=== PATIENT | female | born 1940 | race African-American/Black ===

== ENCOUNTER 2019-10-30 12:46 | Emergency (ER) | payer MEDICARE, OTHER ==
[2019-10-30 13:22] LABS: #Basophils 0.1 thou/uL (0.0-0.2); #Eosinphils 0.1 thou/uL (0.0-0.7); #Lymphocytes 1.2 thou/uL (1.20-3.40); #Monocytes 1.2 thou/uL (0.11-0.59); #Neutrophils 10.3 thou/uL (1.40-6.50); %Basophils 0.6 % (0.0-1.0); %Eosinophils 0.8 % (0.0-10.0); %Monocytes 9.5 % (0.0-10.0); %Neutrophils 80.1 % (42.0-75.0); Hemoglobin 9.8 g/dL (12.0-16.0); Mean Corpuscular HGB CONC 32.3 g/dL (32.0-36.0); Mean Corpuscular Hemoglobin 30.9 pg (27.0-31.0); Mean Corpuscular Volume 95.6 fL (78.0-98.0); Mean Platelet Volume 7.1 fL (7.4-10.4); Platelet Count 366 thou/uL (130-400); RBC Distribution Width 11.7 % (11.5-14.5); Red Blood Cell (RBC) Count 3.17 mill/uL (4.20-5.40); White Blood Cell (WBC) Count 12.9 thou/uL (4.8-10.8)
[2019-10-30 13:48] LABS: ALT (SGPT) 25 U/L (8-55); AST (SGOT) 17 U/L (5-34); Albumin 3.3 g/dL (3.4-4.8); Alkaline Phosphatase 72 U/L (40-110); Anion Gap 12 mmol/L (10-20); BUN (Urea Nitrogen) 14 mg/dL (9.8-20.1); Bilirubin, Total 0.6 mg/dL (0.2-1.2); Calc. Creatinine Clearance 0 mL/min (70-130); Calcium 9.1 mg/dL (7.8-10.44); Carbon Dioxide 32 mmol/L (23-31); Chloride 95 mmol/L (98-107); Estimated GFR-MDRD 80; Globulin 3.2 g/dL (2.4-3.5); Glucose 112 mg/dL (83-110); Potassium 3.1 mmol/L (3.5-5.1); Protein, Total 6.5 g/dL (6.0-8.3); Sodium 136 mmol/L (136-145)
--- NOTE | 2019-10-30 13:54 | CT ---
EXAM: CT brain without contrast HISTORY: Altered mental status and weakness COMPARISON: 03/16/2015 TECHNIQUE: Multiple contiguous axial images were obtained and a CT of the brain without contrast. FINDINGS: There are scattered hypodensities in the subcortical and periventricular white matter consi stent with small vessel ischemic disease. There is no evidence of hydrocephalus, intracranial hemorrhage, or extra-axial fluid collection. The calvarium and overlying soft tissues are unremarkable. The visualized paranasal sinuses and masto id air cells are well aerated. IMPRESSION: No evidence of acute intracranial abnormality
[2019-10-30 15:21] LABS: Bilirubin Negative (Negative); Blood, Urine Trace (Negative); Clarity Clear (Clear); Glucose, Urine (Dipstick) Normal (Negative); Leukocyte Negative Leu/uL (Negative); Nitrite Negative (Negative); Protein, Urine (Dipstick) 30 mg/dL (Neg-Trace); RBC/HPF 0-3 HPF (0-3); Squamous Epithelial 0-3 HPF (0-3); Urobilinogen Normal mg/dL (Less than 2)
[2019-10-30 15:22] LABS: Bacteria/HPF Rare-Few HPF (None Seen)
--- NOTE | 2019-10-30 15:41 | RAD ---
RADIOGRAPH CHEST 1 VIEW: DATE: 10/30/2019 HISTORY: 79-year-old female with weakness and altered mental status. Concern for aspiration. FINDINGS: The thoracic aorta is tortuous and ectatic. There is no evidence of airspace density, pulmonary edema , cardiomegaly, or pneumothorax. The lateral costophrenic angles are slightly effaced. IMPRESSION: 1) questionable tiny bilateral pleural effusions. A lateral view may be useful for confirmation.. 2) No acute pulmonary findings. 3) ectasia of thoracic aorta.
[2019-10-30] MEDS ORDERED: Cephalexin 250 MG CAP ONE (16:40)
--- NOTE | 2019-10-31 11:36 | EKG ---
Test Reason : Blood Pressure : / mmHG Vent. Rate : 065 BPM Atrial Rate : 065 BPM P-R Int : 142 ms QRS Dur : 082 ms QT Int : 460 ms P-R-T Axes : 062 -29 006 degrees QTc Int : 478 ms Normal sinus rhythm Possible Left atrial enlargement Left ventricular hypertrophy Abnormal ECG Confirmed by SUE SLAUGHTER DO ([id number]), editor book GUSTAVO GALINDO ([id number]) on 10/31/2019 11:35:44 AM Referred By: Confirmed By:SUE SLAUGHTER DO
== END 2019-10-30 19:19 | disposition home or self-care (01) ==
LOC: ERS 12:46
DX: N30.90 Cystitis, unspecified without hematuria (principal); R53.81 Other malaise; R63.0 Anorexia; I49.9 Cardiac arrhythmia, unspecified; I10 Essential (primary) hypertension; G47.30 Sleep apnea, unspecified; F41.9 Anxiety disorder, unspecified; Z87.891 Personal history of nicotine dependence; Z86.73 Personal history of transient ischemic attack (TIA), and cerebral infarction without residual deficits
CPT/HCPCS: 36415; 51701; 70450; 71045; 80053; 81003; 81015; 84484; 85025; 87086; 93005

== ENCOUNTER 2019-11-24 14:38 | Inpatient (IN) | payer MEDICARE, OTHER ==
--- NOTE | 2019-11-24 14:55 | CT ---
CT BRAIN WITHOUT CONTRAST: HISTORY:Stroke alert. Left-sided weakness. Unable to talk COMPARISON:10/30/2019 FINDINGS: There are foci of decreased attenuation in the periventricular white matter, consistent with chronic small vessel ischemic disease. Old infarctions in the cerebellar hemispheres are again seen. No evidence of acute infarct, hemorrhage, midline shift or abnormal extra-axial fluid collections is seen. The ventricular size is appropriate and the basilar cisterns are patent. The bony calvarium is intact. The visualized paranasal sinuses and mastoid air cells are well aerated. IMPRESSION: No CT evidence of acute intracranial process. Discussed over the telephone with ER physician Dr. Arsen Zeng at 2:50 PM
[2019-11-24 15:11] LABS: #Lymphocytes 0.7 thou/uL (1.20-3.40); #Monocytes 0.6 thou/uL (0.11-0.59); #Neutrophils 5.4 thou/uL (1.40-6.50); %Basophils 0.6 % (0.0-1.0); %Eosinophils 0.3 % (0.0-10.0); %Lymphocytes 10.7 % (21.0-51.0); %Monocytes 9.2 % (0.0-10.0); %Neutrophils 79.1 % (42.0-75.0); Hemoglobin 8.4 g/dL (12.0-16.0); Mean Corpuscular HGB CONC 32.5 g/dL (32.0-36.0); Mean Corpuscular Hemoglobin 30.6 pg (27.0-31.0); Mean Corpuscular Volume 94.2 fL (78.0-98.0); Mean Platelet Volume 7.4 fL (7.4-10.4); Platelet Count 281 thou/uL (130-400); RBC Distribution Width 12.8 % (11.5-14.5); Red Blood Cell (RBC) Count 2.73 mill/uL (4.20-5.40); White Blood Cell (WBC) Count 6.8 thou/uL (4.8-10.8)
--- NOTE | 2019-11-24 15:16 | CT ---
CTA Angio Head W WO Con History: Reason For Study Comparison: CT brain same day without contrast Findings: CT angiogram of the head and neck was performed after the intravenous administration of con trast. 3-D rendering provided. Multifocal nodules in the right upper and left upper lobes. Largest nodule left upper lobe measures 8 mm. Largest nodule in the right upper lobe measures 1 cm. Multiple smaller nodules present. Significant reflux contrast within the paravertebral plexus. Right vertebral artery is patent. Right common carotid artery is patent. Right internal carotid arter y is patent with medialization. Origin left common vertebral artery is not well seen due to extensive streak from contrast within the venous plexus. The mid cervical and superior cervical vertebral artery is patent. The left vertebral artery appears to terminate in the PICA, a normal variant. Visualized portion of the left common carotid artery is patent. The internal carotid artery is patent . No hemodynamically significant stenosis per mass effect criteria. [place] is patent without stenosis, thrombosis nor aneurysm formation. Impression: 1. No hemodynamically significant stenosis of the internal carotid arteries per NASCET criteria. 2. Dominant right vertebral artery with the left vertebral artery terminating in the PICA, a normal v ariant. 3. Patent [place] without stenosis, thrombosis or aneurysm formation. 4. Multifocal pulmonary nodules concerning for either metastatic disease or multifocal lung cancer. S cattered pneumonia is felt somewhat less likely. Dedicated CT of the chest recommended nonemergently. Code: CR. Dr. Zeng notified of findings via telephone at 3:10 PM
[2019-11-24 15:17] LABS: Prothrombin Time 14.5 sec (12.0-14.7)
[2019-11-24 15:18] LABS: INR-International Normal Ratio 1.1
[2019-11-24 15:32] LABS: ALT (SGPT) 10 U/L (8-55); AST (SGOT) 11 U/L (5-34); Albumin 3.1 g/dL (3.4-4.8); Alkaline Phosphatase 65 U/L (40-110); Anion Gap 11 mmol/L (10-20); BUN (Urea Nitrogen) 8 mg/dL (9.8-20.1); Bilirubin, Total 0.4 mg/dL (0.2-1.2); CK (CPK) 149 U/L (29-168); Calc. Creatinine Clearance 0 mL/min (70-130); Calcium 8.6 mg/dL (7.8-10.44); Carbon Dioxide 28 mmol/L (23-31); Chloride 101 mmol/L (98-107); Estimated GFR-MDRD Greater than 90; Globulin 2.9 g/dL (2.4-3.5); Glucose 109 mg/dL (83-110); Potassium 3.3 mmol/L (3.5-5.1); Sodium 137 mmol/L (136-145)
[2019-11-24 15:53] LABS: CKMB 2.5 ng/mL (0-6.6)
[2019-11-24] MEDS ORDERED: Iopamidol 370 76% 100 ML VIAL ONE (16:31)
--- NOTE | 2019-11-24 16:36 | PDOC.FPRHP ---
- History of Present Illness Chief Complaint: R sided weakness and trouble speaking after fall History of Present Illness: 79 yo F with a PMH of HTN, JAZMIN, and mixed incontinence presents via EMS following sudden onset right sided facial droop and right sided weakness which resulted in a fall. Family witnessed fall at 1400 on day of admission. Patient did not hit her head. Patient was also experiencing expressive aphasia, so history taking was limited. ED Course: Patient evaluated and had NIH of 13, given tPA at 1510. Nurse reports improvement of patient's movement and speech since then. During exam it was noted that patient's tongue was swollen. After exam, nurse expressed concern that swelling was increasing which was agreed upon my ED and admitting attending physician. Patient was intubed in the ED, given Etomidate 20mg and Succinylcholine 100mg. - Allergies/Adverse Reactions Allergies Allergy/AdvReac Type Severity Reaction Status Date / Time No Known Drug Allergies Allergy Verified 07/31/19 18:48 - Home Medications Medication Instructions Recorded Confirmed Type Acetaminophen With Codeine 1 tablet PO Q6HR PRN 09/14/14 11/24/19 History [Tylenol with Codeine #3] Iron 65 mg PO DAILY 09/14/14 11/24/19 History Hydrochlorothiazide 12.5 mg PO DAILY 11/24/19 11/24/19 History Oxybutynin Chloride [Oxybutynin 15 mg PO DAILY 11/24/19 11/24/19 History Chloride ER] Gabapentin 100 mg PO TID 11/25/19 11/25/19 History Mirtazapine 30 mg PO DAILY 11/25/19 11/25/19 History Tiotropium [place] [Spiriva] 18 mcg IH DAILY 11/25/19 11/25/19 History Ziprasidone [Geodon] 60 mg PO BID-WM 11/25/19 11/25/19 History - History PMHx: HTN, JAZMIN, neuropathy, overactive bladder, mixed incontinence, schizoaffective disorder PSHx: endometrial biopsy, hammertoe surgery, L total hip replacement, R intraocular lens replacement, laproscope cholecystectomy FHx: adopted. Son - unknown cancer Social: Lives in [facility], former tobacco user greater than 10 years ago - Review of Systems ROS unobtainable: other (due to patient's expressive aphasia. Patient denied any pain.) - Vital signs BP: 151/100 HR: 79 RR: 18 Tmax: 98.6 Pox: 100% on RA Wt: 65kg - Physical Exam Constitutional: NAD -Constitutional: oriented to person and place, unable to verbalize needs due to aphasia HEENT: normocephalic and atraumatic, PERRLA, EOMI, grossly normal hearing -HEENT: macroglossia Heart: RRR Lungs: no respiratory distress, good air movement Abdomen: soft, non-tender Neurological: CN II-XII intact, normal sensation -Neurological: 5/5 strength in left upper and lower extremities, 5/5 strength in right upper and lower extremities. Mild facial drooping on R side. FMR H&P: Results - Labs Result Diagrams: 11/24/19 15:04 11/24/19 15:04 Lab results: WBC 6.8 thou/uL (4.8-10.8) 11/24/19 15:04 Hgb 8.4 g/dL (12.0-16.0) L 11/24/19 15:04 Hct 25.7 % (36.0-47.0) L 11/24/19 15:04 MCV 94.2 fL (78.0-98.0) 11/24/19 15:04 Plt Count 281 thou/uL (130-400) 11/24/19 15:04 Neutrophils % 79.1 % (42.0-75.0) H 11/24/19 15:04 Sodium 137 mmol/L (136-145) 11/24/19 15:04 Potassium 3.3 mmol/L (3.5-5.1) L 11/24/19 15:04 Chloride 101 mmol/L (98-107) 11/24/19 15:04 Carbon Dioxide 28 mmol/L (23-31) 11/24/19 15:04 BUN 8 mg/dL (9.8-20.1) L 11/24/19 15:04 Creatinine 0.71 mg/dL (0.6-1.1) 11/24/19 15:04 Glucose 109 mg/dL (83-110) 11/24/19 15:04 Calcium 8.6 mg/dL (7.8-10.44) 11/24/19 15:04 Total Bilirubin 0.4 mg/dL (0.2-1.2) 11/24/19 15:04 AST 11 U/L (5-34) 11/24/19 15:04 ALT 10 U/L (8-55) 11/24/19 15:04 Alkaline Phosphatase 65 U/L (40-110) 11/24/19 15:04 Creatine Kinase 149 U/L (29-168) 11/24/19 15:04 CK-MB (CK-2) 2.5 ng/mL (0-6.6) 11/24/19 15:04 Serum Total Protein 6.0 g/dL (6.0-8.3) 11/24/19 15:04 Albumin 3.1 g/dL (3.4-4.8) L 11/24/19 15:04 Laboratory Tests 11/24/19 11/24/19 15:04 15:04 PT 14.5 INR 1.1 APTT 24.0 Troponin I 0.107 H - Radiology Interpretation CT scan - head Status: report reviewed by me Additional comment: negative Other Status: report reviewed by me Additional comment: CTA - negative for clot, multifocal lung nodules concerning for metastatic disease FMR H&P: A/P - Problem List (1) Acute ischemic cerebrovascular accident (CVA) involving left middle cerebral artery territory Current Visit: Yes Status: Acute Code(s): I63.512 - CEREB INFRC D/T UNSP OCCLS OR STENOS OF LEFT MID CEREB ART (2) Angio-edema Current Visit: Yes Status: Acute Code(s): T78.3XXA - ANGIONEUROTIC EDEMA, INITIAL ENCOUNTER (3) HTN (hypertension) Current Visit: Yes Status: Acute Code(s): I10 - ESSENTIAL (PRIMARY) HYPERTENSION (4) Hypokalemia Current Visit: Yes Status: Acute Code(s): E87.6 - HYPOKALEMIA (5) Normocytic anemia Current Visit: Yes Status: Acute Code(s): D64.9 - ANEMIA, UNSPECIFIED (6) Elevated troponin Current Visit: Yes Status: Acute Code(s): R79.89 - OTHER SPECIFIED ABNORMAL FINDINGS OF BLOOD CHEMISTRY (7) Lung nodules Current Visit: Yes Status: Acute (8) Schizoaffective disorder Current Visit: Yes Status: Acute Code(s): F25.9 - SCHIZOAFFECTIVE DISORDER, UNSPECIFIED - Plan 79 yo F with a PMH of HTN, JAZMIN, and mixed incontinence admitted for ischemic L sided CVA s/p tPA. Ischemic L sided CVA s/p tPA -tPA given 1510 on 11/23 -Patient in ICU -PRN labetolol, hydralazine, nocardia for SBP >180, DBP >105 -repeat CT in AM -Neuro and Stroke team consulted Angioedema -tPA reaction -was given benadryl and 125mg solumedrol -Continue pepcid 20mg IV BID -Continue solumedrol 40mg IV q6h Hypokalemia -CCU electrolyte protoccol Increased troponin -likely secondary to CVA -EKG showed no ST changes Normocytic anemia -CCU electrolyte protocol Lung nodules -Consider workup when patient stabilizes HTN -BP control via stroke protocol -hold home medications at this time Schizoaffective disorder -hold home medications at this time Overactive bladder -placed garcía catheter Diet: NPO IVF: LR 10mL/hr PPx: s/p tPA, pepcid Code: Full - needs confirmation with family Attending: James Dispo: Suspect >48 LOS, discharge pending extubation and improvement PCP: Devi CORDERO H&P: Upper Level - Plan Date/Time: 11/24/19 1636 IEdgar DO, have evaluated this patient and agree with findings/plan as outlined by architect intern resident. Pertinent changes/additions are listed here. This is a 79 yo female with a pmh of HTN, JAZMIN, MACK, over active bladder, who present to the ED with a cc of fall and speech difficulties. She was last seen normal at 1400 this afternoon. At that time she had a ground level fall with no head trauma, trouble talking, walking, and left sided weakness. She was brought to the ER where she was evaluated and found to have an NIH of 13 and so emergency consent was implied and she was given tPA at 1510. Since this time, the nurse caring for her reports that her movement has improved. The patient currently has some swelling in her tongue concerning for obstruction. The patient was intubated in the ER. Etomidate 20mg Succinylcholine 100mg Objective: Vitals: BP 151/100, HR 79, RR 18, Temp 98.6, SpO2 100 on RA General: NAD, unable to verbalize HEENT: macroglossia, mmm, AT/NC Cardio: RRR, no murmur Lungs: Coarse breath sounds, good air movement Neuro: 4/5 strength in left upper and lower extremities, 5/5 in right upper and lower extremities, normal heel to back bilaterally, CN II-XII grossly intact with the exception of right CN VII showing some drooping of the right face MSK: no obvious joint injury Extremities: Trace edema in bilaterally LE A/P: Ischemic left sided CVA, S/P tPA at 1510 (11/23) -Admit to ICU -Intubated in ER 2/2 angioedema -Sedation protocol -Monitor BP with goal between SBP <180 and DBP <105 -PRN labetalol and hydralazine -Will repeat CT brain tomorrow -Glucose is 109 -Neurology and stroke team consulted -Will risk stratify after tPA window Angioedema -S/P Benadryl, Pepcid, and solumedrol 125mg -Will continue steroids Normocytic anemia -Hgb 8.4, will monitor with CBC after 24 tPA Hypokalemia -CCU electrolyte protocol Elevated troponin, likely 2/2 CVA -EKG shows no signs of ST elevation or depression -Would obtain an EKG if pt decompensates overnight Lung nodules seen on CT -Consider further work up after tPA window HTN -Hold HCTZ at this time Over reactive bladder -García catheter in place Code: Full, based on emergency state, have not confirmed with next of kin PCP: Veronica Family: None at bedside Fluids: LR Diet: NPO Drips: tPA Disposition: DC in 5-6 days PCP: ROBBI Wagner Addendum - Attending - Attending Attestation Date/Time: 11/25/19 0811 I personally evaluated the patient and discussed the management with Dr. Matt/ Deirdre. I agree with the History, Examination, Assessment and Plan documented above with any addition or exceptions noted below. see my dictated H&P for details.
[2019-11-24] MEDS ORDERED: Ondansetron PF 4 MG/2 ML Vial IVP PRN (16:37)
[2019-11-24] MEDS ORDERED: Ondansetron ODT 4 MG TAB PO PRN (16:37)
[2019-11-24] MEDS ORDERED: niCARdipine 25 MG in Sodium Chloride 0.9% 250 ML 250 ML IVPB PRN (16:37)
[2019-11-24] MEDS ORDERED: Labetalol HCl 100 MG/20 ML VIAL SLOW IVP PRN (16:37)
[2019-11-24] MEDS ORDERED: methylPREDNISolone Sod Succ/PF 125 MG/2 ML VIAL ONE (16:56)
[2019-11-24] MEDS ORDERED: diphenhydrAMINE 50 MG/ML VIAL ONE (16:56)
[2019-11-24] MEDS ORDERED: Succinylcholine Chloride 20 MG/ML 10 ml SYRINGE FS ONE (17:01)
[2019-11-24] MEDS ORDERED: Propofol 1,000 MG/100 ML VIAL IV ONE (17:14)
[2019-11-24] MEDS ORDERED: Midazolam HCl 5 mg/ml Vial ONE ×2 (17:19→17:20)
--- NOTE | 2019-11-24 17:29 | RAD ---
XR Chest 1 View Portable HISTORY: Fall. COMPARISON: 10/30/2019 exam. FINDINGS: Endotracheal and NG tubes are in satisfactory position. Heart size within normal limits. Th e aorta is tortuous. The lungs are clear of infiltrates. IMPRESSION: No acute findings. Endotracheal tube in satisfactory position.
[2019-11-24] MEDS ORDERED: Ventilator Sedation Protocol 1 EACH FS ONE (17:34)
[2019-11-24] MEDS ORDERED: Electrolyte Replacement Protoc 1 EACH EACH FS PRN (17:34)
[2019-11-24] MEDS ORDERED: Lorazepam 2 MG/ML VIAL SLOW IVP PRN (17:59)
[2019-11-24] MEDS ORDERED: Morphine 2 MG/ML VIAL SLOW IVP PRN (17:59)
[2019-11-24] MEDS ORDERED: Fentanyl BOLUS 250 ML IVPB PRN (17:59)
[2019-11-24] MEDS ORDERED: Propofol BOLUS 1,000 MG/100 ML VIAL IV PRN (17:59)
[2019-11-24] MEDS ORDERED: fentaNYL Citrate/PF 2,000 MCG in Sodium Chloride 0.9% 60 ML IV SCH (17:59)
[2019-11-24] MEDS ORDERED: DISCONTINUE PREVIOUS NARCOTIC PAIN MEDICATIONS AND BENZODIAZEPINES FS SCH (17:59)
[2019-11-24] MEDS ORDERED: niCARdipine 20MG In NaCl 20 MG/200 ML BAG ONE (18:18)
[2019-11-24] MEDS: Lactated Ringer's 1,000 ML IV SCH (19:00)
[2019-11-24] MEDS: Communication Order-Pharmacy FS SCH (19:31)
--- NOTE | 2019-11-24 20:29 | HP ---
TIME OF SERVICE: 1700 hours. CHIEF COMPLAINT: Altered mental status. HISTORY OF PRESENT ILLNESS: I reviewed all documentations and discussed the care and management of this patient with Dr. Matt and Dr. Gilmore. I agree with their documentation unless otherwise stated in the following attestation. In summary, Ms. Calix is a pleasant 79-year-old woman who currently resides at a long-term nursing facility. She presented with a chief complaint of a fall that occurred at approximately 2:00 p.m. today. This fall was witnessed at the [facility]. The patient did not hit her head or lose consciousness. She was also noted to be aphasic at this time and unable to move the left side of her body. She was transported to the ER via EMS. At this time, her initial imaging was negative for intracranial hemorrhage and risks, benefits of tPA were discussed with the family by the ER physician. They elected to proceed with tPA administration. This improved her NIH score. She was able to say a few simple words and had improving articulation of her words. She also had improved movement of her left upper and lower extremity. However, while the tPA was still running , she began to develop angioedema. Due to concern for impending airway collapse due to the angioedema caused her from the tPA, decision was made to emergently intubate the patient. I discussed this with Dr. Cruz. The patient was intubated by Dr. Rivera in the ER without difficulty. The patient did acknowledge desire to undergo endotracheal intubation prior to receiving sedatives. The family medicine team attempted to contact her son, but have been unsuccessful at this time. Please see the resident note for past medical, surgical, family, and social history. FOCUSED PHYSICAL EXAMINATION: VITAL SIGNS: Blood pressure 151/100, pulse 79, respiratory rate 18, temperature 98.6, pulse ox 100% on room air. Weight 65 kg. GENERAL: Prior to her endotracheal intubation, she was alert, oriented, but had difficulty articulating words due to her progressive worsening of her tongue swelling. ENT: Angioedema. CARDIOVASCULAR: Normal rate, regular rhythm. No murmurs. PULMONARY: Clear to auscultation bilaterally. Post intubation, she had breath sounds in both lungs. NEUROLOGIC: She was able to move all four extremities equally. I was unable to perform a full neurological exam due to concern for her impending respiratory collapse due to angioedema. PERTINENT LABORATORY FINDINGS: Troponin 0.107. Potassium 3.3, albumin 3.1. Hemoglobin 8.4, hematocrit 25.7. Coags within normal limits. Platelets 281. IMAGING DATA: CT of the brain with and without contrast, no acute intracranial processes. Angiography showed no focal thrombus or hemodynamically significant stenosis of the internal carotid arteries. EKG, normal sinus rhythm. No overt ST changes or depression. Borderline left ventricular hypertrophy. ASSESSMENT: Ms. Calix is a pleasant 79-year-old woman, who presented with fall, left-sided weakness, and aphasia. She is now status post tPA for suspected cerebrovascular accident, but developed angioedema due to the tPA. She was subsequently intubated due to concern for impending airway collapse. PLAN: 1. CVA. Again, the patient is status post tPA and had improving neurological function prior to her endotracheal intubation. We will have p.r.n. blood pressure medications available for a goal of systolic less than 180 and diastolic less than 105. Stroke team consulted for evaluation. She does not appear to be on aspirin or statin at this time. We will add aspirin and consider adding statin tomorrow. No needle sticks for the next 24 hours. Strict bedrest. 2. Angioedema. She now has an oral endotracheal tube in place. Dr. Cruz has been notified. Continue ventilatory support and sedation. She received Solu-Medrol 125 mg and Benadryl 50 mg prior to her endotracheal intubation. We will continue her on Solu-Medrol. Additional recommendations from Pulmonary/Critical Care are pending. 3. See [facility] internship note for chronic medical problems. 4. Disposition: Inpatient ICU greater than 2 midnights. Approximately 35 minutes of critical care time were spent by me in the care of this patient. Job ID: [id number] [facility]
[2019-11-24] MEDS: Famotidine/PF 20 mg/2ml Vial SLOW IVP SCH (20:50)
[2019-11-25] MEDS: methylPREDNISolone Sod Succ 40 MG VIAL IVP SCH ×4 (00:05→18:18)
[2019-11-25] MEDS: Propofol 1,000 MG/100 ML VIAL IV PRN ×3 (01:16→16:17)
[2019-11-25] MEDS: Lactated Ringer's 1,000 ML IV SCH ×2 (05:10→16:17)
--- NOTE | 2019-11-25 05:51 | PDOC.FM ---
- Subjective Subjective: Nursing reports pt did well over night. She did require a Cardene drip but this was discontinued at 2300. She has continued moving all extremities. Pt does not have a garcía but has been using the purewick successfully. - Objective MAR Reviewed: Yes Vital Signs & Weight: Vital Signs (12 hours) Temp Pulse Resp Pulse Ox 11/25/19 04:22 80 11/25/19 04:00 98.6 F 14 11/25/19 02:00 14 11/25/19 00:43 82 11/25/19 00:00 98.3 F 14 11/24/19 20:48 88 11/24/19 20:00 99.0 F 14 100 Weight Weight 67.217 kg Most Recent Monitor Data Heart Rate from ECG 66 NIBP 120/88 NIBP BP-Mean 98 Respiration from ECG 14 SpO2 100 I&O: 11/23/19 11/24/19 11/25/19 06:59 06:59 06:59 Intake Total 201 Output Total 1000 Balance -799 Result Diagrams: 11/24/19 15:04 11/24/19 15:04 Phys Exam - Physical Examination GCS [id number] HEENT: PERRLA, moist MMs good air movment, coarse lung sounds Cardiovascular: RRR, no significant murmur Gastrointestinal: soft, no distention, positive bowel sounds Musculoskeletal: no edema, pulses present Neurological: moves all 4 limbs Will squeeze hand, but will not follow other commands Skin: normal turgor, cap refill <2 seconds Dx/Plan - Plan Plan: Code: Full Prophylaxis: pepcid Family: none at bedside Fluids; LR 100 ml/hr Drips: propofol 15 Diet: NPO Vent settings: SIMV 14, TV 450, PS 10, PEEP 5, FIO2 40% Plan: This is a 79 yo female who presented with an ischemic stroke, received tPA and developed an intracranial bleed overnight. Neurosurgery has been consulted. We will continue monitoring and providing supportive care. Ischemic left sided CVA, S/P tPA at 1510 (11/23) -Intubated and sedated -Sedation protocol -Monitor BP with goal between SBP <180 and DBP <105 -PRN labetalol and hydralazine -Neurology and stroke team consulted -Will risk stratify after tPA window -Pt developed an intraparencamal right basal ganglia bleed as well as a left temporal lobe bleed overnight, consulting neurosugery Angioedema -S/P Benadryl, Pepcid, and solumedrol 125mg -Will continue steroids Normocytic anemia -Hgb 8.4, will monitor with CBC after 24 tPA Hypokalemia -CCU electrolyte protocol Elevated troponin, likely 2/2 CVA -EKG shows no signs of ST elevation or depression -Would obtain an EKG if pt decompensates overnight Lung nodules seen on CT -Consider further work up after tPA window HTN -Hold HCTZ at this time Over reactive bladder -García catheter in place Addendum - Attending - Attending Attestation Date/Time: 11/25/19 7898 I personally evaluated the patient and discussed the management with Dr. Gilmore. I agree with the History, Examination, Assessment and Plan documented above with any addition or exceptions noted below. MV support for angioedema. She had 2 areas of intracranial hemorrhage last night. repeat CT this afternoon stable. Awaiting further specialist recs. Still attempting to contact family.
[2019-11-25] MEDS ORDERED: Potassium Chloride 40 MEQ in Sodium Chloride 0.9% 250 ML 250 ML IV SCH (06:30)
--- NOTE | 2019-11-25 07:26 | PRG ---
DATE OF SERVICE: 11/25/2019 I personally interviewed and examined the patient, reviewed records and imaging , and agreed with the notes of Yuri Kirby PA-C, that are forthcoming dated 2019. Briefly, Haroldo Calix is a 79-year-old woman, who had a fall at home, was brought to the emergency department. Her evaluation there noted left hemiparesis and some speech difficulty. The concern was for an ischemic stroke and tPA was administered. During the tPA administration, she had some allergic reaction with angioedema and was intubated to protect her airway. Overnight, she has been doing relatively well on the ventilator. We went for a CT scan of the brain this morning showing a small hemorrhage in the anterior portion of the external capsule just lateral to the anterior lenticular nuclei in the right hemisphere. There may be a tiny bit of hemorrhage at the bottom of the left temporal lobe or this could be volume averaging from bony prominence there. Neither of these areas cause much mass effect. Neurosurgery was consulted for the new CT finding. When I see Ms. Calix in the ICU, she is wide awake. Her vitals are stable. The endotracheal tube was in, so she cannot talk to me. She easily opens her eyes. Both sides of her face are moving. The left arm and the right arm are moving. The left leg and the right leg are moving. She follows commands well with both sides of her body. I reviewed the CT scan of the brain and the findings are as mentioned above. There is no mass effect from either area of hyperdensity. I recommended that Haroldo Calix have a repeat CT scan sometime this afternoon. I do not expect any increase in the size of the hyperdensities. As long as they are stable, she will not need neurosurgical intervention. The effect of the tPA is long since worn off and I suspect the bleeding stabilized sometime overnight. Thank you for the consult. Please call with questions. (15 min, >50% counseling, educating, coordinating care) Job ID: [id number] [facility]
[2019-11-25] MEDS: Famotidine/PF 20 mg/2ml Vial SLOW IVP SCH ×2 (07:59→20:12)
--- NOTE | 2019-11-25 08:29 | CT ---
PRELIMINARY REPORT/[facility]/EMERGENCY AFTER HOURS PROCEDURE: This report was discussed with Madina Marcus RN by Emely Ware on Nov 25, 2019 04:37:00 CDT. Addendum electronically signed by Emely Ware on November 25, 2019 4:37:59 AM CDT EXAM: CT Head Without Intravenous Contrast. CLINICAL HISTORY: FOLLOW UP POST TPA. TECHNIQUE: Axial computed tomography images of the head/brain without intravenous contrast. COMPARISON: CT\SR - CT BRAIN WO CON - 11/24/2019 02:47 PM CDT FINDINGS: BRAIN: 1.1 cm hemorrhage in the right basal ganglia, new compared to prior. 0.9 cm parenchymal hemorrhage in the left temporal lobe. Encephalomalacia in the bilateral cerebellum which likely represents prior chronic infarcts. Hypodensity of the white matter is nonspecific but likely represents chronic microvascular ischemic d isease. VENTRICLES: No hydrocephalus. ORBITS: The orbits are unremarkable. SINUSES AND MASTOIDS: The paranasal sinuses and mastoid air cells are clear. SOFT TISSUES: No significant facial or scalp soft tissue swelling evident. No radiopaque foreign body is seen. BONES: No acute skull fracture. IMPRESSION: New intraparenchymal hemorrhage in the right basal ganglia measuring up to 1.1 cm and in the left tem poral lobe measuring up to 0.9 cm. ELECTRONICALLY SIGNED BY: Komal Leong MD Nov 25, 2019 4:31:03 AM CDT This report is intended for review by the ordering physician only, in accordance of law. If you recei ve this report in error, please call [facility] at [phone]. FINAL REPORT EMERGENCY AFTER HOURS CT BRAIN WITHOUT CONTRAST: FINDINGS/IMPRESSION: I agree with the findings and impression given in the preliminary report per [facility] physici an. There is a new parenchymal contusion in the right basal ganglia and a new area of contusion in the le ft temporal lobe. POS: EAA
[2019-11-25] MEDS ORDERED: Prevnar 13-Val Conj/PF 0.5 ML SYRINGE IM ONE (09:00)
--- NOTE | 2019-11-25 10:04 | CON ---
DATE OF CONSULTATION: 11/25/2019 HISTORY OF PRESENT ILLNESS: Ms. Calix is a 79-year-old female, who presented to the emergency department with symptoms of a stroke. She had tPA. She developed tongue swelling and respiratory distress, so she was intubated with 7.0 tube. I was consulted because of her presentation in the ICU. CT scan this morning shows a small hemorrhage in the external capsule in the right hemisphere. PAST MEDICAL HISTORY: 1. Sleep apnea. 2. Hypertension. 3. History of surgery on her hammertoes. 4. History of an endometrial biopsy. 5. History of a hip replacement on the left. 6. History of cataract surgery. 7. History of cholecystectomy. FAMILY HISTORY: Noncontributory. She is adopted. She is a nonsmoker, had not smoked over 10 years. Nondrinker. REVIEW OF SYSTEMS: Otherwise negative. PHYSICAL EXAMINATION: GENERAL: She is in no distress. VITAL SIGNS: Blood pressure is 135/91, heart rate is 60, and respiratory rate is 14. HEAD AND NECK: Unremarkable. Pupils react. She has 7.0 endotracheal tube with the cuff deflated. There is no air leak. LUNGS: Clear. HEART: Regular rhythm. S1 and S2 are normal. ABDOMEN: Soft and nontender. EXTREMITIES: Without clubbing, cyanosis, or edema. IMPRESSION: Tongue swelling after tPA, now with respiratory failure, mechanical ventilation and no air leak with a 7.0 tube in. She has been started on IV steroids daily basis for an air leak. Her tongue does not appear excessively swollen at this point in time. She has been followed by Neurosurgery as well. Overall, she appears to be stable. CRITICAL CARE TIME: 30 minutes. Job ID: [id number] [facility]
--- NOTE | 2019-11-25 14:15 | CON ---
NEUROLOGY CONSULTATION DATE OF CONSULTATION: 11/25/2019 REASON FOR CONSULTATION: Right-sided weakness and dysarthria, status post fall. HISTORY OF PRESENT ILLNESS: Ms. Calix is a 79-year-old female with medical history significant for hypertension, obstructive sleep apnea, and presented to the emergency room with sudden onset right facial droop and right-sided weakness which resulted after a fall. According to the family she fell around 2 p.m. yesterday. She did not hit her head. However, after the fall the family noticed that she was weak on the right side and she has developed expressive aphasia. She was brought to the emergency room with an NIH Stroke Scale of 13 and she was given tPA at 3:10, which did result in improvement in patient's strength on the right side and speech was also improved. However, it was noted that the patient's tongue was swollen. The patient was intubated and sedated and transferred to ICU for further management. PAST MEDICAL HISTORY: Hypertension, neuropathy, overactive bladder, schizoaffective disorder. PAST SURGICAL HISTORY: Status post endometrial biopsy, hammer toe surgery, left total hip replacement, right intra-ocular lens replacement. FAMILY HISTORY: No significant family history. SOCIAL HISTORY: The patient lives at [facility]. She is a former smoker. Denies illegal drug use. REVIEW OF SYSTEMS: Unobtainable due to mental status. - Vital Signs (12 hours) Temp Pulse Resp Pulse Ox 11/25/19 04:22 80 11/25/19 04:00 98.6 F 14 11/25/19 02:00 14 11/25/19 00:43 82 11/25/19 00:00 98.3 F 14 11/24/19 20:48 88 11/24/19 20:00 99.0 F 14 100 Weight Weight 67.217 kg Most Recent Monitor Data Heart Rate from ECG 66 NIBP 120/88 NIBP BP-Mean 98 Respiration from ECG 14 SpO2 100 I&O: 11/23/19 11/24/19 11/25/19 06:59 06:59 06:59 Intake Total 201 Output Total 1000 Balance -799 PHYSICAL EXAMINATION: CONSTITUTIONAL: Ill-appearing. HEENT: Normocephalic and atraumatic. CHEST: Clear. ABDOMEN: Soft. HEART: Regular rate and rhythm. NEUROLOGICAL: The patient is intubated and sedated. She does not follow commands. She does not maintain eye contact. No gaze preference. No roving eye movement seen. Cranial nerves; pupils are 4 mm, round and reactive to light. Cornea is positive. Gag positive. Mild right facial droop. Motor, muscle tone and bulk are normal. Minimal spontaneous movement of the extremities seen. Repeat CT scan shows a small hemorrhage in the external capsule in the right hemisphere. Gait deferred due to patient's safety reasons. Allergies/Adverse Reactions Allergies Allergy/AdvReac Type Severity Reaction Status Date / Time No Known Drug Allergies Allergy Verified 07/31/19 18:48 - Home Medications Medication Instructions Recorded Confirmed Type Acetaminophen With Codeine 1 tablet PO Q6HR PRN 09/14/14 11/24/19 History [Tylenol with Codeine #3] Iron 65 mg PO DAILY 09/14/14 11/24/19 History Hydrochlorothiazide 12.5 mg PO DAILY 11/24/19 11/24/19 History Oxybutynin Chloride [Oxybutynin 15 mg PO DAILY 11/24/19 11/24/19 History Chloride ER] Gabapentin 100 mg PO TID 11/25/19 11/25/19 History Mirtazapine 30 mg PO DAILY 11/25/19 11/25/19 History Tiotropium Alloway [Spiriva] 18 mcg IH DAILY 11/25/19 11/25/19 History Ziprasidone [Geodon] 60 mg PO BID-WM 11/25/19 11/25/19 History Lab results: WBC 6.8 thou/uL (4.8-10.8) 11/24/19 15:04 Hgb 8.4 g/dL (12.0-16.0) L 11/24/19 15:04 Hct 25.7 % (36.0-47.0) L 11/24/19 15:04 MCV 94.2 fL (78.0-98.0) 11/24/19 15:04 Plt Count 281 thou/uL (130-400) 11/24/19 15:04 Neutrophils % 79.1 % (42.0-75.0) H 11/24/19 15:04 Sodium 137 mmol/L (136-145) 11/24/19 15:04 Potassium 3.3 mmol/L (3.5-5.1) L 11/24/19 15:04 Chloride 101 mmol/L (98-107) 11/24/19 15:04 Carbon Dioxide 28 mmol/L (23-31) 11/24/19 15:04 BUN 8 mg/dL (9.8-20.1) L 11/24/19 15:04 Creatinine 0.71 mg/dL (0.6-1.1) 11/24/19 15:04 Glucose 109 mg/dL (83-110) 11/24/19 15:04 Calcium 8.6 mg/dL (7.8-10.44) 11/24/19 15:04 Total Bilirubin 0.4 mg/dL (0.2-1.2) 11/24/19 15:04 AST 11 U/L (5-34) 11/24/19 15:04 ALT 10 U/L (8-55) 11/24/19 15:04 Alkaline Phosphatase 65 U/L (40-110) 11/24/19 15:04 Creatine Kinase 149 U/L (29-168) 11/24/19 15:04 CK-MB (CK-2) 2.5 ng/mL (0-6.6) 11/24/19 15:04 Serum Total Protein 6.0 g/dL (6.0-8.3) 11/24/19 15:04 Albumin 3.1 g/dL (3.4-4.8) L 11/24/19 15:04 Laboratory Tests 11/24/19 11/24/19 15:04 15:04 PT 14.5 INR 1.1 APTT 24.0 Troponin I 0.107 H DIAGNOSTICS: I reviewed the initial CT on 11/24/2019, which was negative for acute intracranial process. Repeat CT status post tPA showed 1.1 cm hemorrhage in the right basal ganglia which is new and also 0.9 cm parenchymal hemorrhage in the left lobe. There is also encephalomalacia in the bilateral cerebellum which represents chronic infarcts. ASSESSMENT AND PLAN: - Problem List (1) Acute ischemic cerebrovascular accident (CVA) involving left middle cerebral artery territory Current Visit: Yes Status: Acute Code(s): I63.512 - CEREB INFRC D/T UNSP OCCLS OR STENOS OF LEFT MID CEREB ART (2) Angio-edema Current Visit: Yes Status: Acute Code(s): T78.3XXA - ANGIONEUROTIC EDEMA, INITIAL ENCOUNTER (3) HTN (hypertension) Current Visit: Yes Status: Acute Code(s): I10 - ESSENTIAL (PRIMARY) HYPERTENSION (4) Hypokalemia Current Visit: Yes Status: Acute Code(s): E87.6 - HYPOKALEMIA (5) Normocytic anemia Current Visit: Yes Status: Acute Code(s): D64.9 - ANEMIA, UNSPECIFIED (6) Elevated troponin Current Visit: Yes Status: Acute Code(s): R79.89 - OTHER SPECIFIED ABNORMAL FINDINGS OF BLOOD CHEMISTRY (7) Lung nodules Current Visit: Yes Status: Acute (8) Schizoaffective disorder Current Visit: Yes Status: Acute Code(s): F25.9 - SCHIZOAFFECTIVE DISORDER, UNSPECIFIED Ms. Haroldo Calix is a 79-year-old female who is currently intubated and sedated, status post tPA after she developed a tongue swelling. Examination limited secondary to sedation. Repeat head CT showed intraparenchymal hemorrhage. Hold anticoagulants and antiplatelets at this time due to a new bleed. Neuro checks every 2 hours. Consider stat noncontrast head CT if the neurological status declines. Telemetry . Check fasting lipid panel, hemoglobin A1c, TSH, vitamin B12, and folic acid. Consider high-intensity statin for secondary stroke prevention once the patient is extubated and cleared to take p.o. Continue medical management per primary team. Recommend EEG to rule out underlying seizure activity. Recommend MRI of the brain, 2D echo. Once the patient is stable, PT/OT/speech. Monitor blood pressure and blood glucose. We will continue to follow. Thank you for the consult. Job ID: [id number] [facility]TDD
--- NOTE | 2019-11-25 14:16 | EEG ---
DATE OF SERVICE: 11/25/2019 ATTENDING PHYSICIAN: Rashida Vora MD This EEG was performed using 24-channel [employer] video digital EEG machine with 24-disk electrodes. This was an extended 2-hour 10 minutes of inpatient video EEG recording. Digital analysis of the EEG was done for spike and seizure detection, which revealed no abnormalities. BACKGROUND: There is a nonsustained posterior background rhythm of 8.5 hertz. Minimal reactivity seen with eye opening and closure. HYPERVENTILATION: Not performed. PHOTIC STIMULATION: No significant response seen with photic stimulation. SLEEP: Drowsiness is observed. EEG DIAGNOSES: 1. Intermittent irregular theta activity with superimposed beta. 2. Nonsustained posterior background rhythm. CLINICAL INTERPRETATION: This EEG is consistent with [id number] generalized nonspecific cerebral dysfunction. No ictal or interictal epileptiform abnormalities seen during the recording. Job ID: [id number]
--- NOTE | 2019-11-25 14:16 | CT ---
EXAM: CT brain without contrast HISTORY: Follow-up intracranial hemorrhage COMPARISON: 11/25/2003 6:00 AM TECHNIQUE: Multiple contiguous axial images were obtained and a CT of the brain without contrast. FINDINGS: There are scattered hypodensities in the subcortical and periventricular white matter consi stent with small vessel ischemic disease. There are stable small areas of parenchymal hemorrhage in the right basal ganglia and left temporal lobe. No intraventricular hemorrhage is seen. The calvarium and overlying soft tissues are unremarkable. The visualized paranasal sinuses and masto id air cells are well aerated. IMPRESSION: Stable areas of parenchymal hemorrhage
[2019-11-25] MEDS: Communication Order-Pharmacy FS SCH (16:19)
[2019-11-25] MEDS: Ziprasidone 60 MG CAP PO SCH (17:00)
[2019-11-25] MEDS: Gabapentin 100 MG CAP PO SCH (20:12)
[2019-11-25] MEDS: Atorvastatin Calcium 40 MG TAB PO SCH (20:12)
[2019-11-25] MEDS ORDERED: Aspirin 300 MG Suppository PR SCH (21:00)
--- NOTE | 2019-11-25 21:16 | CON ---
DATE OF CONSULTATION: 11/25/2019 CHIEF COMPLAINT: Right-sided weakness and difficulty forming words. HISTORY OF PRESENT ILLNESS: Ms. Calix is a 79-year-old female, who was brought in by EMS to [facility] Emergency Department following a witnessed fall by the family. Family states the patient did not hit her head. They report there was a sudden onset of right-sided facial droop and right-sided weakness that caused her fall. Due to her left hemiparesis and difficulty forming words, TPA was administered. The patient had an allergic reaction to the tPA and developed angioedema and was quickly intubated to protect her airway. Neurosurgery was consulted due to a brain CT showing a small hemorrhage in the anterior portion of the external capsule just lateral to the anterior lenticular nuclei in the right hemisphere. These two hemorrhages are not causing any mass effect or midline shift. REVIEW OF SYSTEMS: Unobtainable. The patient is intubated. MEDICATIONS: 1. Clonazepam. 2. Iron. 3. Aspirin. 4. Tylenol. 5. Gabapentin. 6. Mirtazapine. 7. Ziprasidone. 8. Tylenol with Codeine No. 3. 9. Hydrochlorothiazide. 10. Oxybutynin. PAST MEDICAL HISTORY: Hypertension, arthritis, stress, anemia, schizoaffective disorder, overactive bladder, neuropathy, and JAZMIN. FAMILY HISTORY: Adopted. Father . Family history unknown. Mother . Family history unknown. SOCIAL HISTORY: Former smoker. No alcohol. No illicit drugs use. PAST SURGICAL HISTORY: In 2015, left hip replacement. PHYSICAL EXAMINATION: VITAL SIGNS: BP 140/90, heart rate 84, and respiratory rate intubated. HEENT: Pupils are equal. Extraocular movements are intact. NECK: Soft and supple. No masses are noted. NEUROLOGIC: Oriented to person and place, unable to verbalize due to intubation. Cranial nerves 2 through 12 intact. Normal sensation. Neurological, she has good strength in her right upper and lower extremities. Left hemiparesis. She has spontaneous eye opening, verbal response not tested. Intubated. Motor response to verbal commands. IMAGING: Brain CT: 1.1 cm right basal ganglia hemorrhage and 0.9 cm left temporal parenchymal hemorrhage. PLAN: Repeat brain CT in the afternoon. If scan shows improvement or no change , we will transfer care to Medicine Service. Supportive care. No intracranial surgery at this time. We will have her follow up in 2 to 3 weeks in our clinic and repeat scan prior to the visit. Thank you for the consult. Please call with questions. 50 minutes reviewing images, examining the patient, and being available for questions. Job ID: [id number] MTDD
[2019-11-26] MEDS: methylPREDNISolone Sod Succ 40 MG VIAL IVP SCH ×4 (00:23→17:13)
[2019-11-26] MEDS: Lactated Ringer's 1,000 ML IV SCH ×2 (03:56→13:54)
--- NOTE | 2019-11-26 05:46 | PDOC.FM ---
- Subjective Subjective: Pt did well overnight. She is following commands even under sedation. She did fail the airleak test yesterday and was not extubated. - Objective MAR Reviewed: Yes Vital Signs & Weight: Vital Signs (12 hours) Temp Pulse Resp Pulse Ox 11/26/19 04:00 98.2 F 14 11/26/19 03:23 42 L 11/26/19 02:00 14 11/26/19 01:33 65 11/26/19 00:00 98.3 F 14 11/25/19 22:00 14 11/25/19 21:37 49 L 11/25/19 20:00 98.1 F 14 100 11/25/19 18:44 60 11/25/19 18:00 14 Weight Admit Weight 67.132 kg Weight 67.217 kg Most Recent Monitor Data Heart Rate from ECG 68 NIBP 136/92 NIBP BP-Mean 106 Respiration from ECG 14 SpO2 100 I&O: 11/24/19 11/25/19 11/26/19 06:59 06:59 06:59 Intake Total 1444 1395.5 Output Total 1000 1000 Balance 444 395.5 Result Diagrams: 11/26/19 08:23 11/26/19 06:46 Phys Exam - Physical Examination Sedated, intubated, GCS [id number] HEENT: PERRLA, moist MMs Neck: no JVD Coars breath sounds Cardiovascular: RRR, no significant murmur Gastrointestinal: soft, no distention, positive bowel sounds Musculoskeletal: pulses present, edema present (1+ edema in lower extremities) Neurological: moves all 4 limbs Skin: cap refill <2 seconds Dx/Plan - Plan Plan: Code: Full Prophylaxis: pepcid Family: none at bedside Fluids; LR 100 ml/hr Drips: propofol 15 Diet: NPO Vent settings: SIMV 14, TV 450, PS 10, PEEP 5, FIO2 40% Plan: This is a 79 yo female who presented with an ischemic stroke, received tPA and developed an intracranial bleed that is stable. Plan to extubate when possible and then transition our focus to physical therapy and recovery. Ischemic left sided CVA, S/P tPA at 1510 (11/23) -Intubated and sedated -Sedation protocol -Monitor BP -PRN labetalol and hydralazine -Neurology and stroke team consulted -Pt developed an intraparencamal right basal ganglia bleed as well as a left temporal lobe bleed that has remained stable on repeat CT Angioedema -S/P Benadryl, Pepcid, and solumedrol 125mg -Will continue steroids Normocytic anemia -Hgb 8.4, will monitor with CBC after 24 tPA Hypokalemia -CCU electrolyte protocol Elevated troponin, likely 2/2 CVA -EKG shows no signs of ST elevation or depression -Would obtain an EKG if pt decompensates overnight Lung nodules seen on CT -Consider further work up after tPA window HTN -Hold HCTZ at this time Over reactive bladder Addendum - Attending - Attending Attestation Date/Time: 11/26/19 2644 I personally evaluated the patient and discussed the management with Dr. Gilmore. I agree with the History, Examination, Assessment and Plan documented above with any addition or exceptions noted below. Will attempt to extubate again today per pulm. Neuro intact with no obvious changes. continue supportive care.
[2019-11-26 07:15] LABS: Actual Bicarbonate (HCO3a) 22.4 mEq/L (22-28); Base Excess (BEa) -0.9 mEq/L (-2.0 to +3.0); CO2 Tension 32.4 mmHg (35.0-45.0); Calcium, Ionized (arterial) 1.22 mmol/L (1.12-1.30); Carboxyhemoglobin (COHb) 0.4 gm% (0.0-3.0); Hemoglobin (Hb) 10.1 g/dL (12.0-16.0); O2 Tension (PaO2), arterial 159.8 mmHg (> 70.0); Potassium - ABG Lab 3.61 mmol/L (3.70-5.30); pH, Arterial 7.46 (7.35-7.45)
[2019-11-26 07:16] LABS: Puncture Site RRA
[2019-11-26 07:19] LABS: Anion Gap 18 mmol/L (10-20); BUN (Urea Nitrogen) 14 mg/dL (9.8-20.1); Calc. Creatinine Clearance 65 mL/min (70-130); Calcium 9.1 mg/dL (7.8-10.44); Carbon Dioxide 20 mmol/L (23-31); Chloride 103 mmol/L (98-107); Estimated GFR-MDRD 88; Glucose 140 mg/dL (83-110); Potassium 3.9 mmol/L (3.5-5.1); Sodium 137 mmol/L (136-145)
--- NOTE | 2019-11-26 07:52 | RAD ---
EXAM: Single view of the chest HISTORY: Ventilated patient with intracranial hemorrhage COMPARISON: 11/24/2019 FINDINGS: Single view of the chest shows a normal sized cardiomediastinal silhouette. The endotrache al tube and NG tube are unchanged in position. There is no evidence of consolidation, mass, or pleural effusion. The bones are unremarkable. IMPRESSION: No evidence of acute cardiopulmonary disease
[2019-11-26] MEDS: Propofol 1,000 MG/100 ML VIAL IV PRN (07:53)
[2019-11-26] MEDS: Famotidine/PF 20 mg/2ml Vial SLOW IVP SCH ×2 (07:57→20:17)
[2019-11-26] MEDS: Mirtazapine 30 MG Soltab PO SCH (07:58)
[2019-11-26] MEDS: Gabapentin 100 MG CAP PO SCH ×3 (07:58→20:17)
[2019-11-26 08:52] LABS: Hemoglobin 10.1 g/dL (12.0-16.0); Mean Corpuscular HGB CONC 31.1 g/dL (32.0-36.0); Mean Corpuscular Hemoglobin 29.6 pg (27.0-31.0); Mean Corpuscular Volume 95.1 fL (78.0-98.0); Mean Platelet Volume 8.3 fL (7.4-10.4); Platelet Count 276 thou/uL (130-400); White Blood Cell (WBC) Count 19.3 thou/uL (4.8-10.8)
[2019-11-26] MEDS ORDERED: Aspirin 325 mg Enteric Coated Tablet PO SCH (09:00)
[2019-11-26] MEDS: Ziprasidone 60 MG CAP PO SCH ×2 (09:38→18:14)
[2019-11-26 09:53] LABS: Band 8 % (5-11); Hypochromia SLIGHT = 6-15 cells (100X) (0-5/hpf); Lymphocytes 4 % (21-51); MDiff Complete? YES; Monocytes 12 % (0-10); Neutrophil 76 % (42-75); Ovalocytes SLIGHT = 2-5 cells (100X) (0-1/hpf); Platelet Morphology Comment Appears Adequate; Polychromasia SLIGHT = 2-3 cells (100X) (0-2/hpf)
--- NOTE | 2019-11-26 15:02 | PDOC.HOSPP ---
- Subjective Encounter Date: 11/26/19 Subjective: NEUROLOGY PROGRESS NOTE No acute events overight. Patient is intubated and sedated. - Objective Vital Signs & Weight: Vital Signs (12 hours) Temp Pulse Pulse Pulse Resp BP BP 11/26/19 14:00 14 11/26/19 13:45 48 L 11/26/19 12:00 98.1 F 14 11/26/19 10:47 51 L 55 L 167/86 H 11/26/19 10:35 49 L 161/91 H 11/26/19 10:00 14 11/26/19 08:00 14 11/26/19 07:49 97.6 F 11/26/19 07:43 69 145/89 H 11/26/19 06:00 18 11/26/19 04:00 98.2 F 14 11/26/19 03:23 42 L BP Pulse Ox Pulse Ox 11/26/19 14:00 11/26/19 13:45 11/26/19 12:00 11/26/19 10:47 151/82 H 100 100 11/26/19 10:35 11/26/19 10:00 11/26/19 08:00 11/26/19 07:49 11/26/19 07:43 11/26/19 06:00 11/26/19 04:00 11/26/19 03:23 Weight Admit Weight 148 lb Weight 148 lb 3 oz Most Recent Monitor Data Heart Rate from ECG 51 NIBP 182/113 NIBP BP-Mean 136 Respiration from ECG 14 SpO2 100 I&O: 11/25/19 11/26/19 11/27/19 06:59 06:59 06:59 Intake Total 1444 2648.6 240 Output Total 1000 1000 350 Balance 444 1648.6 -110 Result Diagrams: 11/26/19 08:23 11/26/19 06:46 Radiology Reviewed by me: Yes Hospitalist ROS - Review of Systems ROS unobtainable: due to endotracheal tube - Medication Medications: Active Medications Generic Name Dose Route Start Last Admin Trade Name Freq PRN Reason Stop Dose Admin Atorvastatin Calcium 80 mg 11/25/19 21:00 11/25/19 20:12 Lipitor PO 80 mg HS COLEEN Administration Famotidine 20 mg 11/24/19 21:00 11/26/19 07:57 Pepcid SLOW IVP 20 mg BID COLEEN Administration Gabapentin 100 mg 11/25/19 21:00 11/26/19 07:58 Neurontin PO 100 mg TID COLEEN Administration Nicardipine HCl 25 mg/ Sodium 260 mls @ 0 mls/hr 11/24/19 16:37 11/24/19 20: 37 Chloride IVPB 260 mls INF PRN Administration SBP > 180 or DBP > 105 Protocol Titrate Lactated Ringer's 1,000 mls @ 100 mls/hr 11/24/19 17:45 11/26/19 13:54 Lactated Ringer's IV 1,000 mls .Q10H COLEEN Administration Methylprednisolone Sodium Succinate 40 mg 11/24/19 23:59 11/26/19 12:12 Solu-Medrol IVP 40 mg Q6HR COLEEN Administration Mirtazapine 30 mg 11/26/19 09:00 11/26/19 07:58 Remeron Soltab PO 30 mg DAILY COLEEN Administration Propofol 1,000 mg 11/24/19 17:59 11/26/19 07:53 Diprivan IV 12/24/19 17:59 1,000 mg INF PRN Administration TO ACHIEVE GOAL RASS Protocol Ziprasidone 60 mg 11/25/19 17:00 11/26/19 09:38 Geodon PO 60 mg BID-WM COLEEN Administration - Exam General Appearance: ill appearing Eye: PERRL ENT: normocephalic atraumatic Neck: supple Heart: RRR Respiratory: CTAB Gastrointestinal: soft Extremities: no cyanosis Skin: normal turgor Neurological: no new deficit Psychiatric: not oriented Hosp A/P (1) Cerebral hemorrhage Code(s): I61.9 - NONTRAUMATIC INTRACEREBRAL HEMORRHAGE, UNSPECIFIED Status: Acute (2) Acute ischemic cerebrovascular accident (CVA) involving left middle cerebral artery territory Code(s): I63.512 - CEREB INFRC D/T UNSP OCCLS OR STENOS OF LEFT MID CEREB ART Status: Acute (3) HTN (hypertension) Code(s): I10 - ESSENTIAL (PRIMARY) HYPERTENSION Status: Acute (4) Schizoaffective disorder Code(s): F25.9 - SCHIZOAFFECTIVE DISORDER, UNSPECIFIED Status: Acute - Plan This is a 79 yo female who presented with an acute onset left sided weakness . She received tPA and developed an intracranial bleed which is stable on repeat Hct. -Currently Intubated and sedated -Sedation protocol -Monitor BP -Telemetry -PRN labetalol and hydralazine -Developed intraparencamal right basal ganglia bleed and left temporal lobe bleed s/p TPA which is stable on repeat HCT - EEG reviewed and was negative for seizure activity. -Neurochecks every 2 hours. - MRI Brain when stable. - 2D Echo and CD , P/OT/Speech when stable after extubation. -DVT prophylaxis - Continue medical management per primary team.
[2019-11-26] MEDS: hydrALAZINE 20 MG/ML VIAL SLOW IVP PRN (19:09)
[2019-11-26] MEDS: Atorvastatin Calcium 40 MG TAB PO SCH (20:17)
--- NOTE | 2019-11-26 23:13 | PRG ---
DATE OF SERVICE: 11/26/2019 SUBJECTIVE: Ms. Calix still does not have a leak or a drop in exhaled tidal volume with deflation of the cuff. She has a 7.0 tube in. Her hemodynamics have been stable. She will awaken. OBJECTIVE: VITAL SIGNS: FiO2 is at 40%, blood pressure 140/86, heart rate 91, respiratory rate 14. LUNGS: Clear. HEART: Regular rhythm. ABDOMEN: Soft. EXTREMITIES: Without edema. NEUROLOGIC: Not easily assessable with her sedation. LABORATORY DATA: White count 19.3, hemoglobin 10.1, platelets 276. Electrolytes are unremarkable. IMPRESSION: Cerebrovascular accident, status post tPA with upper airway and tongue swelling after tPA leading to emergent intubation. She is currently not weanable. CRITICAL CARE TIME: 30 minutes. Job ID: [id number]
[2019-11-27] MEDS: Lactated Ringer's 1,000 ML IV SCH ×3 (00:03→18:19)
[2019-11-27] MEDS: methylPREDNISolone Sod Succ 40 MG VIAL IVP SCH ×4 (00:03→18:17)
[2019-11-27 04:08] LABS: Band 6 % (5-11); Hemoglobin 9.8 g/dL (12.0-16.0); Lymphocytes 9 % (21-51); MDiff Complete? YES; Mean Corpuscular HGB CONC 30.9 g/dL (32.0-36.0); Mean Corpuscular Hemoglobin 29.1 pg (27.0-31.0); Mean Corpuscular Volume 94.1 fL (78.0-98.0); Mean Platelet Volume 8.7 fL (7.4-10.4); Monocytes 6 % (0-10); Myelocyte 1 % (0-0); Neutrophil 78 % (42-75); Platelet Count 325 thou/uL (130-400); RBC Distribution Width 13.2 % (11.5-14.5); Red Blood Cell (RBC) Count 3.35 mill/uL (4.20-5.40); White Blood Cell (WBC) Count 14.7 thou/uL (4.8-10.8)
[2019-11-27 04:11] LABS: Anion Gap 13 mmol/L (10-20); BUN (Urea Nitrogen) 14 mg/dL (9.8-20.1); Calc. Creatinine Clearance 64 mL/min (70-130); Carbon Dioxide 29 mmol/L (23-31); Chloride 104 mmol/L (98-107); Estimated GFR-MDRD 87; Glucose 135 mg/dL (83-110); Potassium 3.6 mmol/L (3.5-5.1); Sodium 142 mmol/L (136-145)
[2019-11-27] MEDS: Propofol 1,000 MG/100 ML VIAL IV PRN ×2 (05:06→14:18)
--- NOTE | 2019-11-27 06:31 | PDOC.FM ---
- Subjective Subjective: NAEO - Objective MAR Reviewed: Yes Vital Signs & Weight: Vital Signs (12 hours) Temp Resp Pulse Ox 11/27/19 06:00 14 11/27/19 04:00 98.9 F 14 11/27/19 02:00 14 11/27/19 00:00 98.8 F 14 11/26/19 22:00 15 11/26/19 20:00 98.8 F 16 100 Weight Admit Weight 67.132 kg Weight 68.2 kg Most Recent Monitor Data Heart Rate from ECG 63 NIBP 158/87 NIBP BP-Mean 110 Respiration from ECG 14 SpO2 100 I&O: 11/25/19 11/26/19 11/27/19 06:59 06:59 06:59 Intake Total 1444 2648.6 2714.3 Output Total 1000 1000 1500 Balance 444 1648.6 1214.3 Result Diagrams: 11/27/19 03:23 11/27/19 03:23 Phys Exam - Physical Examination Intubated and sedated, Stable exam from yesterday HEENT: moist MMs Neck: no JVD Coarse breath sounds Cardiovascular: RRR, no significant murmur Gastrointestinal: soft, no distention, positive bowel sounds Musculoskeletal: pulses present, edema present (trace) Neurological: moves all 4 limbs Skin: cap refill <2 seconds Dx/Plan - Plan Plan: Code: Full Prophylaxis: pepcid Family: none at bedside Fluids; LR 75 ml/hr Drips: propofol 15 Diet: NPO Vent settings: SIMV 14, TV 450, PS 10, PEEP 5, FIO2 40% Plan: This is a 79 yo female who presented with an ischemic stroke, received tPA and developed an intracranial bleed that is stable. Plan to extubate when possible and then transition our focus to physical therapy and recovery. Ischemic left sided CVA, S/P tPA at 1510 (11/23) -Intubated and sedated -Sedation protocol -Monitor BP -PRN labetalol and hydralazine -Neurology and stroke team consulted -Pt developed an intraparencamal right basal ganglia bleed as well as a left temporal lobe bleed that has remained stable on repeat CT Angioedema -S/P Benadryl, Pepcid, and solumedrol 125mg -Will continue steroids Normocytic anemia -Stable Hypokalemia -CCU electrolyte protocol Elevated troponin, likely 2/2 CVA -EKG shows no signs of ST elevation or depression -Would obtain an EKG if pt decompensates overnight Lung nodules seen on CT -Consider further work up after tPA window HTN -Hold HCTZ at this time Over reactive bladder Pt has positive balance on I&Os, will turn down LR Addendum - Attending - Attending Attestation Date/Time: 11/27/19 9804 I personally evaluated the patient and discussed the management with Dr. Gilmore. I agree with the History, Examination, Assessment and Plan documented above with any addition or exceptions noted below. Failed leak test. Attempt extubation later this weekend or next week. Will discuss with neuro starting ASA as she did have a post tPa bleed. Continue supportive care. Starting antihypertensives today through her OG tube.
[2019-11-27 07:00] LABS: Base Excess (BEa) 1.5 mEq/L (-2.0 to +3.0); CO2 Tension 35.5 mmHg (35.0-45.0); Calcium, Ionized (arterial) 1.21 mmol/L (1.12-1.30); Carboxyhemoglobin (COHb) 0.6 gm% (0.0-3.0); Hemoglobin (Hb) 11.6 g/dL (12.0-16.0); O2 Tension (PaO2), arterial 87.6 mmHg (> 70.0); Potassium - ABG Lab 3.51 mmol/L (3.70-5.30); pH, Arterial 7.47 (7.35-7.45)
[2019-11-27 07:25] LABS: ALV-art Gradient 153.225 (0-20); Puncture Site RRAD
--- NOTE | 2019-11-27 07:58 | RAD ---
XR Chest 1 View Portable History: Ventilated patient Comparison: Radiograph prior day Findings: Endotracheal tube tip sits just below the clavicles. Enteric tube tip below diaphragm altho ugh out of field of view. Heart size upper limits of normal. Aorta is mildly tortuous. No acute osseous abnormality. Impression: No acute intrathoracic abnormality nor significant change.
[2019-11-27] MEDS: Famotidine/PF 20 mg/2ml Vial SLOW IVP SCH (09:26)
[2019-11-27] MEDS: Ziprasidone 60 MG CAP PO SCH ×2 (09:26→18:17)
[2019-11-27] MEDS: Gabapentin 100 MG CAP PO SCH ×3 (09:27→20:31)
[2019-11-27] MEDS: Mirtazapine 30 MG Soltab PO SCH (09:28)
--- NOTE | 2019-11-27 11:23 | PDOC.HOSPP ---
- Subjective Encounter Date: 11/27/19 Subjective: NEUROLOGY PROGRESS NOTE Patient is intubated and sedated.She does not follow commands. Per nursing report, agitation and pulling out tube noted overnight. - Objective Vital Signs & Weight: Vital Signs (12 hours) Temp Pulse Resp 11/27/19 10:32 63 11/27/19 08:00 18 11/27/19 07:25 59 L 11/27/19 06:00 14 11/27/19 04:00 98.9 F 14 11/27/19 02:00 14 11/27/19 00:00 98.8 F 14 Weight Admit Weight 148 lb Weight 150 lb 5.684 oz Most Recent Monitor Data Heart Rate from ECG 47 NIBP 143/83 NIBP BP-Mean 103 Respiration from ECG 14 SpO2 97 I&O: 11/26/19 11/27/19 11/28/19 06:59 06:59 06:59 Intake Total 2648.6 2714.3 Output Total 1000 1500 Balance 1648.6 1214.3 Result Diagrams: 11/27/19 03:23 11/27/19 03:23 Radiology Reviewed by me: Yes EKG Reviewed by me: Yes Hospitalist ROS - Review of Systems ROS unobtainable: due to endotracheal tube - Medication Medications: Active Medications Generic Name Dose Route Start Last Admin Trade Name Albertq PRN Reason Stop Dose Admin Atorvastatin Calcium 80 mg 11/25/19 21:00 11/26/19 20:17 Lipitor PO 80 mg HS COLEEN Administration Gabapentin 100 mg 11/25/19 21:00 11/27/19 09:27 Neurontin PO 100 mg TID COLEEN Administration Hydralazine HCl 10 mg 11/24/19 16:37 11/26/19 19:09 Apresoline SLOW IVP 10 mg Q4H PRN Administration SBP > 180 or DBP > 105 Nicardipine HCl 25 mg/ Sodium 260 mls @ 0 mls/hr 11/24/19 16:37 11/24/19 20: 37 Chloride IVPB 260 mls INF PRN Administration SBP > 180 or DBP > 105 Protocol Titrate Lactated Ringer's 1,000 mls @ 75 mls/hr 11/27/19 06:31 11/27/19 09:25 Lactated Ringer's IV 1,000 mls .[id number] COLEEN Administration Methylprednisolone Sodium Succinate 40 mg 11/24/19 23:59 11/27/19 05:07 Solu-Medrol IVP 40 mg Q6HR COLEEN Administration Mirtazapine 30 mg 11/26/19 09:00 11/27/19 09:28 Remeron Soltab PO 30 mg DAILY COLEEN Administration Propofol 1,000 mg 11/24/19 17:59 11/27/19 05:06 Diprivan IV 12/24/19 17:59 1,000 mg INF PRN Administration TO ACHIEVE GOAL RASS Protocol Ziprasidone 60 mg 11/25/19 17:00 11/27/19 09:26 Geodon PO 60 mg BID-WM COLEEN Administration - Exam General Appearance: ill appearing Eye: PERRL ENT: normocephalic atraumatic Neck: supple Heart: RRR Respiratory: CTAB Extremities: no cyanosis Skin: normal turgor Neurological: no new deficit Musculoskeletal: no muscle wasting Psychiatric: not oriented Hosp A/P (1) Cerebral hemorrhage Code(s): I61.9 - NONTRAUMATIC INTRACEREBRAL HEMORRHAGE, UNSPECIFIED Status: Acute (2) Acute ischemic cerebrovascular accident (CVA) involving left middle cerebral artery territory Code(s): I63.512 - CEREB INFRC D/T UNSP OCCLS OR STENOS OF LEFT MID CEREB ART Status: Acute (3) HTN (hypertension) Code(s): I10 - ESSENTIAL (PRIMARY) HYPERTENSION Status: Acute (4) Schizoaffective disorder Code(s): F25.9 - SCHIZOAFFECTIVE DISORDER, UNSPECIFIED Status: Acute - Plan This is a 79 yo female who presented with an acute onset left sided weakness . She received tPA and developed an intracranial bleed which is stable on repeat HCT. Agitation noted overnight. -Currently Intubated and sedated -Sedation protocol -Strict control of BP - Continue Telemetry -PRN labetalol and hydralazine - EEG reviewed and was negative for seizure activity. -Neurochecks every 2 hours. - MRI Brain when stable. - 2D Echo and CD , P/OT/Speech when stable after extubation. -DVT prophylaxis - Continue medical management per primary team. - Plan discussed with the nursing staff.
--- NOTE | 2019-11-27 12:47 | PRG ---
DATE OF SERVICE: 11/27/2019 SUBJECTIVE: Haroldo Calix opens her eyes, but will not follow commands. OBJECTIVE: VITAL SIGNS: Heart rates in the 40s to 50s, blood pressure 143/83, respiratory rates in the teens. LUNGS: Clear. HEART: Regular rhythm. ABDOMEN: Soft. EXTREMITIES: Without edema. LABORATORY DATA: White count 14.7, hemoglobin 9.8, platelets 325. Electrolytes are normal. Renal functions normal. Creatinine is 0.78. PH 7.47, pCO2 of 35, pO2 of 87. IMPRESSION: Respiratory failure associated with upper airway edema, tongue swelling after tPA. She is clinically stable. A leak test was performed with deflation of her cuff this morning. Tidal volume dropped from 460 to 400, which has significantly improved over yesterday's evaluation. She will probably need one or two more days of steroids, mechanical ventilation before consideration can be given towards extubation since she has a 7.[address]. It will not be possible to assess her response to the tPA until she is following commands and extubated. CRITICAL CARE TIME: 30 minutes. Job ID: [id number]
[2019-11-27] MEDS: Bacteriostatic Water 30 ML VIAL FS PRN (12:56)
[2019-11-27] MEDS: hydrALAZINE 20 MG/ML VIAL SLOW IVP PRN (14:19)
[2019-11-27] MEDS ORDERED: Electrolyte Replacement Protocol FS PRN (17:34)
[2019-11-27] MEDS ORDERED: Pancrelipase DR 12,000 1 CAP FS PRN (17:46)
[2019-11-27] MEDS ORDERED: Sodium Bicarbonate Tab 325 MG TAB PER TUBE PRN (17:46)
[2019-11-27 19:38] LABS: SARS-CoV-2 NAA Rapid Test Not Detected (NotDetected)
[2019-11-27] MEDS: Atorvastatin Calcium 40 MG TAB PO SCH (20:31)
[2019-11-27] MEDS ORDERED: Famotidine 40 MG/5 ML Oral Suspension PO SCH (21:00)
[2019-11-28] MEDS: methylPREDNISolone Sod Succ 40 MG VIAL IVP SCH ×4 (00:11→17:30)
--- NOTE | 2019-11-28 05:05 | PDOC.FM ---
- Subjective Subjective: NAEO. Nursing reports she does not cooperate with the [facility] testing. Propofol is decreased. - Objective MAR Reviewed: Yes Vital Signs & Weight: Vital Signs (12 hours) Temp Resp Pulse Ox 11/28/19 04:00 98.9 F 11 L 11/28/19 02:00 10 L 11/28/19 00:00 98.7 F 11 L 11/27/19 22:00 12 11/27/19 21:00 98.6 F 11/27/19 20:00 15 100 11/27/19 18:00 17 Weight Admit Weight 67.217 kg Weight 68.2 kg Most Recent Monitor Data Heart Rate from ECG 63 NIBP 139/81 NIBP BP-Mean 100 Respiration from ECG 13 SpO2 100 I&O: 11/26/19 11/27/19 11/28/19 06:59 06:59 06:59 Intake Total 2648.6 2714.3 1437 Output Total 1000 1500 1300 Balance 1648.6 1214.3 137 Result Diagrams: 11/28/19 04:20 11/28/19 04:20 Phys Exam - Physical Examination Intubated and sedated, will follow simple commands HEENT: PERRLA, moist MMs coarse breath sounds Cardiovascular: RRR, no significant murmur Gastrointestinal: soft, no distention, positive bowel sounds Musculoskeletal: pulses present, edema present (trace) moves all extremities but right UE Skin: cap refill <2 seconds Dx/Plan - Plan Plan: Code: Full Prophylaxis: pepcid Family: none at bedside Fluids; LR 75 ml/hr Drips: propofol 10 Diet: NPO Vent settings: SIMV 8, TV 450, PS 10, PEEP 5, FIO2 40% Plan: This is a 79 yo female who presented with an ischemic stroke, received tPA and developed an intracranial bleed that is stable. Plan to extubate when possible and then transition our focus to physical therapy and recovery. Ischemic left sided CVA, S/P tPA at 1510 (11/23) -Intubated and sedated -Sedation protocol -Monitor BP -PRN labetalol and hydralazine -Neurology and stroke team consulted -Pt developed an intraparencamal right basal ganglia bleed as well as a left temporal lobe bleed that has remained stable on repeat CT Angioedema -S/P Benadryl, Pepcid, and solumedrol 125mg -Will continue steroids, Pt will likely need a steroid taper once extubated Normocytic anemia -Stable Hypokalemia -CCU electrolyte protocol Elevated troponin, likely 2/2 CVA -EKG shows no signs of ST elevation or depression Lung nodules seen on CT -Consider further work up after tPA window HTN -Starting back HCTZ Over reactive bladder
[2019-11-28] MEDS: Propofol 1,000 MG/100 ML VIAL IV PRN (05:09)
[2019-11-28 05:12] LABS: Anion Gap 15 mmol/L (10-20); BUN (Urea Nitrogen) 21 mg/dL (9.8-20.1); Calc. Creatinine Clearance 66 mL/min (70-130); Calcium 8.5 mg/dL (7.8-10.44); Carbon Dioxide 26 mmol/L (23-31); Chloride 105 mmol/L (98-107); Estimated GFR-MDRD 82; Glucose 145 mg/dL (83-110); Potassium 4.5 mmol/L (3.5-5.1); Sodium 141 mmol/L (136-145)
[2019-11-28] MEDS: Lactated Ringer's 1,000 ML IV SCH ×2 (05:38→17:30)
[2019-11-28 06:11] LABS: Band 9 % (5-11); Hemoglobin 9.5 g/dL (12.0-16.0); Hypochromia SLIGHT = 6-15 cells (100X) (0-5/hpf); Lymphocytes 4 % (21-51); MDiff Complete? YES; Mean Corpuscular HGB CONC 30.6 g/dL (32.0-36.0); Mean Corpuscular Volume 94.6 fL (78.0-98.0); Mean Platelet Volume 9.9 fL (7.4-10.4); Monocytes 6 % (0-10); Neutrophil 81 % (42-75); Platelet Count 272 thou/uL (130-400); Platelet Morphology Comment Appears Adequate; RBC Distribution Width 13.3 % (11.5-14.5); Red Blood Cell (RBC) Count 3.26 mill/uL (4.20-5.40); White Blood Cell (WBC) Count 15.6 thou/uL (4.8-10.8)
--- NOTE | 2019-11-28 07:24 | RAD ---
SINGLE VIEW CHEST: Date: 11/28/2019 COMPARISON: 11/27/2019. HISTORY: Ventilated patient with respiratory failure. FINDINGS: Single view of the chest shows a normal sized cardiomediastinal silhouette. The endotracheal tube and NG tube are unchanged in position. There is no evidence of consolidation, mass, or pleural effusion. Increased interstitial lung markings are present. Degenerative changes are seen in the spine. IMPRESSION: No evidence of acute cardiopulmonary disease. POS: LITZYA
[2019-11-28 07:38] LABS: Actual Bicarbonate (HCO3a) 24.8 mEq/L (22-28); Base Excess (BEa) 1.4 mEq/L (-2.0 to +3.0); Calcium, Ionized (arterial) 1.19 mmol/L (1.12-1.30); Carboxyhemoglobin (COHb) 0.2 gm% (0.0-3.0); Hemoglobin (Hb) 11.1 g/dL (12.0-16.0); O2 Tension (PaO2), arterial 135.2 mmHg (> 70.0); pH, Arterial 7.47 (7.35-7.45)
[2019-11-28 07:39] LABS: Puncture Site L.R.
[2019-11-28] MEDS: Gabapentin 100 MG CAP PO SCH ×3 (07:52→20:40)
[2019-11-28] MEDS: Hydrochlorothiazide 25 MG TAB PO SCH ×2 (07:52→20:40)
[2019-11-28] MEDS: Mirtazapine 30 MG Soltab PO SCH (07:52)
[2019-11-28] MEDS: Ziprasidone 60 MG CAP PO SCH ×2 (07:52→17:31)
[2019-11-28] MEDS: Famotidine 40 MG/5 ML Oral Suspension PER TUBE SCH ×2 (07:53→20:41)
[2019-11-28] MEDS ORDERED: Famotidine 20 MG TAB PO SCH (09:00)
--- NOTE | 2019-11-28 11:55 | PRG ---
DATE OF SERVICE: 11/28/2019 SUBJECTIVE: A 79-year-old female status post tPA for CVA. She is intubated. There is apparently some question about swelling in the back of her throat. Her last CT brain on 11/25/2019 shows 1.1 cm hemorrhage in the right basal ganglia. OBJECTIVE: VITAL SIGNS: Blood pressure 151/99, pulse 84, respiratory rate 18, sats 100%. CHEST: Decreased breath sounds. No wheezing. CARDIAC: Normal S1 and S2. No gallops. ABDOMEN: No masses. NEUROLOGIC: She is not moving her right side, it appears. LABORATORY DATA: White count 15,000, H and H are 9 and 30, platelet count is 272. PO2 is 135, pCO2 is 35, pH is 7.47. O2 at 40%. Lytes are normal. IMPRESSION: 1. Cerebrovascular accident. 2. Respiratory failure. 3. Presumed angioedema. PLAN: Continue steroids, discontinue sedation, check for leak, may consider extubation. CRITICAL CARE TIME: One-half hour of critical time. Job ID: [id number]
--- NOTE | 2019-11-28 17:53 | PRG ---
DATE OF SERVICE: 11/28/2019 Please see the note done by Dr. Edgar Gilmore for which I agree. The patient is still intubated after needing intubation for angioedema assuming from the tPA. Does sound like she can breathe around the tube when it is deflated. So hopefully, we will be able to wean her off the ventilator as the angioedema sounds like it is improving. Not able to move her right arm much and she can follow directions on the left side. She had a stroke that ended up this right-sided issue. So continue with current management, support and medications and hopefully, we will be able to wean her off the ventilator soon. Obviously, prognosis is poor with the recent major stroke and bleed. Job ID: [id number]
[2019-11-28] MEDS: Atorvastatin Calcium 40 MG TAB PO SCH (20:40)
[2019-11-28] MEDS: Acetaminophen 325 MG TAB PO PRN (20:40)
[2019-11-28] MEDS: hydrALAZINE 20 MG/ML VIAL SLOW IVP PRN (20:40)
[2019-11-29] MEDS: methylPREDNISolone Sod Succ 40 MG VIAL IVP SCH ×5 (00:02→23:31)
[2019-11-29 05:17] LABS: Anion Gap 10 mmol/L (10-20); BUN (Urea Nitrogen) 20 mg/dL (9.8-20.1); Calc. Creatinine Clearance 73 mL/min (70-130); Calcium 8.5 mg/dL (7.8-10.44); Carbon Dioxide 32 mmol/L (23-31); Chloride 102 mmol/L (98-107); Estimated GFR-MDRD Greater than 90; Glucose 145 mg/dL (83-110); Potassium 3.4 mmol/L (3.5-5.1); Sodium 141 mmol/L (136-145)
--- NOTE | 2019-11-29 05:36 | PDOC.FM ---
- Subjective Subjective: NAEO. Nursing reports possible extubation attempt today. - Objective MAR Reviewed: Yes Vital Signs & Weight: Vital Signs (12 hours) Temp Pulse Resp BP Pulse Ox 11/29/19 04:00 99 F 10 L 11/29/19 02:45 76 139/78 11/29/19 02:00 10 L 11/29/19 00:00 12 11/28/19 23:56 99 F 11/28/19 22:01 84 115/68 11/28/19 22:00 12 11/28/19 20:40 98 164/108 H 11/28/19 20:00 13 100 11/28/19 19:00 99.4 F 11/28/19 18:53 98 164/108 H 11/28/19 18:00 13 Weight Admit Weight 67.217 kg Weight 74.6 kg Most Recent Monitor Data Heart Rate from ECG 67 NIBP 124/73 NIBP BP-Mean 90 Respiration from ECG 12 SpO2 100 I&O: 11/27/19 11/28/19 11/29/19 06:59 06:59 06:59 Intake Total 2714.3 2832 2063 Output Total 1500 1300 2450 Balance 1214.3 1532 -387 Result Diagrams: 11/28/19 04:20 11/29/19 04:05 Phys Exam - Physical Examination Intubated and sleeping, off sedation Coarse breath sounds Cardiovascular: RRR, no significant murmur Gastrointestinal: soft, no distention, positive bowel sounds Musculoskeletal: pulses present, edema present (trace) Neurological: moves all 4 limbs Skin: cap refill <2 seconds Dx/Plan - Plan Plan: Code: Full Prophylaxis: pepcid Family: none at bedside Fluids; LR 75 ml/hr Drips: none Diet: Tube feeds Vent settings: SIMV 8, TV 450, PS 10, PEEP 5, FIO2 35% Plan: This is a 79 yo female who presented with an ischemic stroke, received tPA and developed an intracranial bleed that is stable. Plan to extubate when possible and then transition our focus to physical therapy and recovery. Ischemic left sided CVA, S/P tPA at 1510 (11/23) -Intubated and sedated -Sedation protocol -Monitor BP -PRN labetalol and hydralazine -Neurology and stroke team consulted -Pt developed an intraparencamal right basal ganglia bleed as well as a left temporal lobe bleed that has remained stable on repeat CT Angioedema -S/P Benadryl, Pepcid, and solumedrol 125mg -Will continue steroids, Pt will likely need a steroid taper once extubated Normocytic anemia -Stable Hypokalemia -CCU electrolyte protocol Elevated troponin, likely 2/2 CVA -EKG shows no signs of ST elevation or depression Lung nodules seen on CT -Consider further work up after tPA window HTN -Starting back HCTZ Over reactive bladder
[2019-11-29] MEDS: Lactated Ringer's 1,000 ML IV SCH ×2 (05:38→20:19)
[2019-11-29 06:35] LABS: Band 8 % (5-11); Hemoglobin 8.4 g/dL (12.0-16.0); Lymphocytes 1 % (21-51); MDiff Complete? YES; Mean Corpuscular HGB CONC 30.5 g/dL (32.0-36.0); Mean Corpuscular Hemoglobin 29.1 pg (27.0-31.0); Mean Corpuscular Volume 95.5 fL (78.0-98.0); Mean Platelet Volume 9.3 fL (7.4-10.4); Monocytes 3 % (0-10); Neutrophil 88 % (42-75); Platelet Count 249 thou/uL (130-400); RBC Distribution Width 13.1 % (11.5-14.5); Red Blood Cell (RBC) Count 2.88 mill/uL (4.20-5.40); White Blood Cell (WBC) Count 13.4 thou/uL (4.8-10.8)
[2019-11-29 07:40] LABS: Actual Bicarbonate (HCO3a) 29.3 mEq/L (22-28); Base Excess (BEa) 4.7 mEq/L (-2.0 to +3.0); CO2 Tension 44.2 mmHg (35.0-45.0); Calcium, Ionized (arterial) 1.19 mmol/L (1.12-1.30); Carboxyhemoglobin (COHb) 0.3 gm% (0.0-3.0); Hemoglobin (Hb) 9.7 g/dL (12.0-16.0); O2 Tension (PaO2), arterial 143.4 mmHg (> 70.0); Potassium - ABG Lab 3.47 mmol/L (3.70-5.30); pH, Arterial 7.44 (7.35-7.45)
[2019-11-29 07:43] LABS: Puncture Site LRA
--- NOTE | 2019-11-29 08:40 | RAD ---
SINGLE VIEW CHEST: HISTORY: Ventilated patient with respiratory failure. COMPARISON: 11/28/19 FINDINGS: A single view of the chest shows an enlarged but stable cardiomediastinal silhouette. The lines and t ubes are unchanged in position. There is no evidence of consolidation, mass or pleural effusion. Dege nerative changes are seen in the spine. IMPRESSION: No evidence of acute cardiopulmonary disease. POS: EAA
[2019-11-29] MEDS: Mirtazapine 30 MG Soltab PO SCH (08:55)
[2019-11-29] MEDS: Famotidine 40 MG/5 ML Oral Suspension PER TUBE SCH ×2 (08:55→20:35)
[2019-11-29] MEDS: Gabapentin 100 MG CAP PO SCH ×3 (08:55→20:36)
[2019-11-29] MEDS: Acetaminophen 325 MG TAB PO PRN (08:55)
[2019-11-29] MEDS: Hydrochlorothiazide 25 MG TAB PO SCH ×2 (08:55→20:35)
[2019-11-29] MEDS: Ziprasidone 60 MG CAP PO SCH ×2 (08:55→16:26)
[2019-11-29] MEDS ORDERED: DC Sedation Protocol FS ONE (09:28)
[2019-11-29 13:31] LABS: Potassium 3.8 mmol/L (3.5-5.1)
--- NOTE | 2019-11-29 14:03 | PRG ---
DATE OF SERVICE: 11/29/2019 Please see the note done by Dr. Edgar Gilmore, for which I agree. The patient was seen, evaluated, discussed, and examined with the residents at bedside. Still intubated, but respiratory lux is doing better and it sounds like when cuff is deflated, does have an air leak around the tube, so it sounds like the swelling from the angioedema extubate today. Obviously, she is going to need a lot of rehab at that point in time for the left hemispheric stroke with right-sided weakness. She can follow commands on the left side, not on the right. Otherwise is stable and we will see if Pulmonary extubates her today. Job ID: [id number]
--- NOTE | 2019-11-29 15:52 | PRG ---
DATE OF SERVICE: 11/29/2019 SUBJECTIVE: This morning, she is slightly more responsive, sedation withheld. OBJECTIVE: VITAL SIGNS: Pulse 75, blood pressure 125/78, sats on 35% are 100%. I's and O's have been good. CHEST: Anterior rhonchi. CARDIAC: Normal S1 and S2. No gallops. ABDOMEN: Soft. NEUROLOGIC: She is more responsive, tracks. LABORATORY DATA: White count 13,000, hemoglobin and hematocrit 8 and 27, platelet count normal. PO2 of 143, pCO2 of 40%, pH 7.44. Lytes are normal. ASSESSMENT: Respiratory failure, cerebrovascular accident, encephalopathy, and apparently schizophrenia. PLAN: We will try and hold all sedation. May consider extubation in the next day. Status post hemorrhage. One-half hour critical care time. Job ID: [id number]
[2019-11-29] MEDS: Atorvastatin Calcium 40 MG TAB PO SCH (20:36)
[2019-11-29] MEDS: Bacteriostatic Water 30 ML VIAL FS PRN (23:31)
[2019-11-30 04:56] LABS: Hemoglobin 9.5 g/dL (12.0-16.0); Mean Corpuscular HGB CONC 29.9 g/dL (32.0-36.0); Mean Corpuscular Hemoglobin 28.6 pg (27.0-31.0); Mean Corpuscular Volume 95.9 fL (78.0-98.0); Mean Platelet Volume 9.8 fL (7.4-10.4); Platelet Count 235 thou/uL (130-400); RBC Distribution Width 13.1 % (11.5-14.5)
[2019-11-30 05:18] LABS: Anion Gap 13 mmol/L (10-20); BUN (Urea Nitrogen) 25 mg/dL (9.8-20.1); Calc. Creatinine Clearance 0 mL/min (70-130); Carbon Dioxide 31 mmol/L (23-31); Chloride 100 mmol/L (98-107); Estimated GFR-MDRD Greater than 90; Glucose 151 mg/dL (83-110); Potassium 3.9 mmol/L (3.5-5.1); Sodium 140 mmol/L (136-145)
[2019-11-30 05:45] LABS: Band 2 % (5-11); Hypochromia SLIGHT = 6-15 cells (100X) (0-5/hpf); Lymphocytes 5 % (21-51); MDiff Complete? YES; Monocytes 4 % (0-10); Neutrophil 89 % (42-75); Platelet Morphology Comment Appears Adequate
[2019-11-30] MEDS: Bacteriostatic Water 30 ML VIAL FS PRN (05:45)
[2019-11-30] MEDS: methylPREDNISolone Sod Succ 40 MG VIAL IVP SCH ×3 (05:45→17:49)
--- NOTE | 2019-11-30 05:52 | PDOC.FM ---
- Subjective Subjective: Pt did well overnight per nursing. She will have occasional elevated BPs when agitated but the resolve spontaneously. There are plans to extubate today. - Objective Vital Signs & Weight: Vital Signs (12 hours) Temp Pulse Resp BP Pulse Ox 11/30/19 04:00 12 11/30/19 02:30 65 134/75 11/30/19 01:58 12 11/30/19 01:00 99.1 F 11/30/19 00:00 12 11/29/19 22:12 81 155/87 H 11/29/19 22:00 14 11/29/19 20:00 99.0 F 11 L 100 11/29/19 18:15 70 129/79 11/29/19 18:00 13 Weight Admit Weight 67.217 kg Weight 74.5 g Most Recent Monitor Data Heart Rate from ECG 77 NIBP 142/81 NIBP BP-Mean 101 Respiration from ECG 12 SpO2 100 I&O: 11/28/19 11/29/19 11/30/19 06:59 06:59 06:59 Intake Total 2832 3303 2672 Output Total 1300 2450 1800 Balance 1532 853 872 Result Diagrams: 11/30/19 03:15 11/30/19 03:15 Phys Exam - Physical Examination Intubated, sleeping HEENT: moist MMs left eye has some haziness possible cataract Neck: no JVD coarse breath sounds Cardiovascular: RRR, no significant murmur Gastrointestinal: soft, no distention, positive bowel sounds Musculoskeletal: pulses present, edema present (trace LE edema) Neurological: moves all 4 limbs (decreased RUE movement) Follows commands Skin: cap refill <2 seconds Dx/Plan - Plan Plan: Code: Full Prophylaxis: pepcid Family: none at bedside Fluids: SL Drips: none Diet: Tube feeds Vent settings: SIMV 4, TV 450, PS 10, PEEP 5, FIO2 30% Plan: This is a 79 yo female who presented with an ischemic stroke, received tPA and developed an intracranial bleed that is stable. Plan to extubate when possible and then transition our focus to physical therapy and recovery. Ischemic left sided CVA, S/P tPA at 1510 (11/23) -Intubated, hopefully extubated today -Monitor BP -PRN labetalol and hydralazine -Neurology and stroke team consulted -Pt developed an intraparencamal right basal ganglia bleed as well as a left temporal lobe bleed that has remained stable on repeat CT -Will restart aspirin Angioedema -S/P Benadryl, Pepcid, and solumedrol 125mg -Will continue steroids, Pt will likely need a steroid taper once extubated Normocytic anemia -Stable Hypokalemia -CCU electrolyte protocol Elevated troponin, likely 2/2 CVA -EKG shows no signs of ST elevation or depression Lung nodules seen on CT -Consider oupt work up HTN -Starting back HCTZ Over reactive bladder Addendum - Attending - Attending Attestation Date/Time: 11/30/19 [id number] I personally evaluated the patient and discussed the management with Dr. Gilmore. I agree with the History, Examination, Assessment and Plan documented above with any addition or exceptions noted below. Patient now s/p extubation. Continue post CVA care. Neuro and therapy on board. Will need placement for rehab.
--- NOTE | 2019-11-30 07:56 | RAD ---
EXAM: Single view of the chest HISTORY: Chest pain COMPARISON: 11/29/2019 FINDINGS: Single view of the chest shows a normal sized cardiomediastinal silhouette. The endotrache al tube and NG tube are unchanged in position. Increased interstitial markings are present. There is no evidence of consolidation, mass, or pleural effusion. The bones are unremarkable IMPRESSION: Stable exam
--- NOTE | 2019-11-30 08:21 | PRG ---
DATE OF SERVICE: 11/30/2019 This is a 35 minutes of critical care time. SUBJECTIVE: The patient remains intubated on mechanical ventilation. She kept intubated over the weekend because of an inability to leak around her cuff when it was deflated. OBJECTIVE: VITAL SIGNS: Her temperature is 99.1, pulse 76, blood pressure 173/99, and O2 saturation 100%. A 24-hour intake 2672 and output 1800. HEENT: Unremarkable. She did have an air leak when the cuff was deflated. NECK: No JVD. CHEST: Clear. CARDIAC: S1 and S2. Regular without murmur. ABDOMEN: Soft and nontender. EXTREMITIES: No edema. NEUROLOGIC: She has right-sided hemiparesis. LABORATORY DATA: Chest x-ray shows no mass, effusion, or infiltrate. White blood cell count 16, hematocrit 31.7, and platelet count 235. Sodium 140, potassium 3.9, chloride 100, CO2 of 31, BUN 25, creatinine 0.7, and glucose 151. ASSESSMENT: 1. Acute respiratory failure requiring mechanical ventilation. 2. Cerebrovascular accident. 3. Schizophrenia. PLAN: I will extubate and observe. She will continue to receive treatment for hypertension and poststroke therapy. We will stop daily blood gases and chest x-rays. Job ID: [id number]
[2019-11-30] MEDS: Famotidine 40 MG/5 ML Oral Suspension PER TUBE SCH ×2 (08:30→21:10)
[2019-11-30] MEDS: Gabapentin 100 MG CAP PO SCH ×3 (08:30→21:10)
[2019-11-30] MEDS: Mirtazapine 30 MG Soltab PO SCH (08:30)
[2019-11-30] MEDS: Ziprasidone 60 MG CAP PO SCH ×2 (08:30→17:43)
[2019-11-30] MEDS: Hydrochlorothiazide 25 MG TAB PO SCH ×2 (08:30→21:10)
[2019-11-30] MEDS ORDERED: Aspirin 81 mg Enteric Coated Tablet PO SCH (09:00)
[2019-11-30] MEDS: hydrALAZINE 20 MG/ML VIAL SLOW IVP PRN (11:51)
--- NOTE | 2019-11-30 12:36 | PDOC.HOSPP ---
- Subjective Encounter Date: 11/30/19 Subjective: NEUROLOGY PROGRESS NOTE Patient is successfully extubated. More alert and was able to track and followed simple commands like smiling and moving arms. - Objective Vital Signs & Weight: Vital Signs (12 hours) Temp Pulse Resp BP Pulse Ox 11/30/19 11:51 81 179/99 H 11/30/19 08:08 99 11/30/19 08:00 22 H 99 11/30/19 07:13 87 162/85 H 11/30/19 06:00 13 11/30/19 04:00 12 11/30/19 02:30 65 134/75 11/30/19 01:58 12 11/30/19 01:00 99.1 F Weight Admit Weight 148 lb 3 oz Weight 2.628 oz Most Recent Monitor Data Heart Rate from ECG 85 NIBP 155/89 NIBP BP-Mean 111 Respiration from ECG 19 SpO2 100 I&O: 11/29/19 11/30/19 12/01/19 06:59 06:59 06:59 Intake Total 3303 2672 30 Output Total 2450 1800 Balance 853 872 30 Result Diagrams: 11/30/19 03:15 11/30/19 03:15 Radiology Reviewed by me: Yes EKG Reviewed by me: Yes Hospitalist ROS - Review of Systems ROS unobtainable: due to mental status (aphasic) - Medication Medications: Active Medications Generic Name Dose Route Start Last Admin Trade Name Freq PRN Reason Stop Dose Admin Acetaminophen 650 mg 11/24/19 16:37 11/29/19 08:55 Tylenol PO 650 mg Q4H PRN Administration Headache/Fever/Mild Pain (1-3) Aspirin 81 mg 11/30/19 09:00 11/30/19 08:30 Ecotrin PO Not Given DAILY COLEEN Atorvastatin Calcium 80 mg 11/25/19 21:00 11/29/19 20:36 Lipitor PO 80 mg HS COLEEN Administration Famotidine 20 mg 11/28/19 09:00 11/30/19 08:30 Pepcid PER TUBE Not Given BID COLEEN Gabapentin 100 mg 11/25/19 21:00 11/30/19 08:30 Neurontin PO Not Given TID COLEEN Hydralazine HCl 10 mg 11/24/19 16:37 11/30/19 11:51 Apresoline SLOW IVP 10 mg Q4H PRN Administration SBP > 180 or DBP > 105 Hydrochlorothiazide 12.5 mg 11/28/19 09:00 11/30/19 08:30 Hydrochlorothiazide PO Not Given BID COLEEN Nicardipine HCl 25 mg/ Sodium 260 mls @ 0 mls/hr 11/24/19 16:37 11/24/19 20: 37 Chloride IVPB 260 mls INF PRN Administration SBP > 180 or DBP > 105 Protocol Titrate Lactated Ringer's 1,000 mls @ 75 mls/hr 11/27/19 06:31 11/29/19 20:19 Lactated Ringer's IV 1,000 mls .[id number] COLEEN Administration Methylprednisolone Sodium Succinate 40 mg 11/24/19 23:59 11/30/19 11:50 Solu-Medrol IVP 40 mg Q6HR COLEEN Administration Mirtazapine 30 mg 11/26/19 09:00 11/30/19 08:30 Remeron Soltab PO Not Given DAILY COLEEN Sterile Water 1 ml 11/24/19 18:53 11/30/19 05:45 Bacteriostatic Water FS 1 ml PRN PRN Administration RECONSTITUTION Ziprasidone 60 mg 11/25/19 17:00 11/30/19 08:30 Geodon PO Not Given BID-WM COLEEN - Exam General Appearance: awake alert Eye: PERRL ENT: normocephalic atraumatic Neck: supple Heart: RRR Respiratory: CTAB Gastrointestinal: soft Neurological: no new deficit, facial droop, hemiplegia, speech deficit Psychiatric - other findings: aphasic Hosp A/P (1) Cerebral hemorrhage Code(s): I61.9 - NONTRAUMATIC INTRACEREBRAL HEMORRHAGE, UNSPECIFIED Status: Acute (2) Acute ischemic cerebrovascular accident (CVA) involving left middle cerebral artery territory Code(s): I63.512 - CEREB INFRC D/T UNSP OCCLS OR STENOS OF LEFT MID CEREB ART Status: Acute (3) HTN (hypertension) Code(s): I10 - ESSENTIAL (PRIMARY) HYPERTENSION Status: Acute (4) Schizoaffective disorder Code(s): F25.9 - SCHIZOAFFECTIVE DISORDER, UNSPECIFIED Status: Acute - Plan PT/OT, speech therapy, DVT proph w/SCDs This is a 79 yo female who presented with an acute onset left sided weakness . She received tPA and developed an intracranial bleed which was stable on repeat HCT. Patient extubated and more alert today. Followed simple commands. Strict control of BP Continue Telemetry EEG reviewed and was negative for seizure activity. Neurochecks every 2 hours. Recommend MRI Brain 2D Echo and CD P/OT/Speech DVT prophylaxis Continue medical management per primary team. Plan discussed with the nursing staff.
[2019-11-30] MEDS: Lactated Ringer's 1,000 ML IV SCH (15:19)
[2019-11-30] MEDS: Atorvastatin Calcium 40 MG TAB PO SCH (21:10)
[2019-12-01] MEDS: methylPREDNISolone Sod Succ 40 MG VIAL IVP SCH ×3 (00:24→23:15)
[2019-12-01] MEDS: Bacteriostatic Water 30 ML VIAL FS PRN ×2 (00:24→05:30)
[2019-12-01 03:13] LABS: Hemoglobin 9.2 g/dL (12.0-16.0); Mean Corpuscular HGB CONC 31.4 g/dL (32.0-36.0); Mean Corpuscular Hemoglobin 29.9 pg (27.0-31.0); Mean Corpuscular Volume 95.1 fL (78.0-98.0); Mean Platelet Volume 8.7 fL (7.4-10.4); Platelet Count 277 thou/uL (130-400); RBC Distribution Width 13.2 % (11.5-14.5); Red Blood Cell (RBC) Count 3.07 mill/uL (4.20-5.40); White Blood Cell (WBC) Count 11.2 thou/uL (4.8-10.8)
[2019-12-01 03:58] LABS: Band 2 % (5-11); Lymphocytes 2 % (21-51); MDiff Complete? YES; Monocytes 4 % (0-10); Neutrophil 92 % (42-75); Platelet Morphology Comment Appears Adequate
[2019-12-01 04:07] LABS: Anion Gap 10 mmol/L (10-20); BUN (Urea Nitrogen) 21 mg/dL (9.8-20.1); Calc. Creatinine Clearance 79 mL/min (70-130); Calcium 9.2 mg/dL (7.8-10.44); Carbon Dioxide 34 mmol/L (23-31); Chloride 99 mmol/L (98-107); Estimated GFR-MDRD Greater than 90; Glucose 128 mg/dL (83-110); Potassium 3.7 mmol/L (3.5-5.1); Sodium 139 mmol/L (136-145)
[2019-12-01] MEDS: Lactated Ringer's 1,000 ML IV SCH (04:10)
--- NOTE | 2019-12-01 05:49 | PDOC.FM ---
- Subjective Subjective: Per nursing, she did well overnight. She failed her bedside dysphagia screen and will have a speech evaluation today. - Objective MAR Reviewed: Yes Vital Signs & Weight: Vital Signs (12 hours) Pulse Ox 11/30/19 20:00 99 Weight Admit Weight 67.217 kg Weight 76.1 kg Most Recent Monitor Data Heart Rate from ECG 89 NIBP 141/90 NIBP BP-Mean 107 Respiration from ECG 26 SpO2 100 I&O: 11/29/19 11/30/19 12/01/19 06:59 06:59 06:59 Intake Total 3303 2672 1491 Output Total 2450 1800 950 Balance 853 872 541 Result Diagrams: 12/01/19 03:00 12/01/19 03:00 Phys Exam - Physical Examination Constitutional: NAD HEENT: moist MMs pt still has a slightly enlarged tongue, but improving Neck: no JVD Respiratory: no wheezing, clear to auscultation bilateral Cardiovascular: RRR, no significant murmur Gastrointestinal: soft, non-tender, no distention, positive bowel sounds Musculoskeletal: pulses present, edema present (trace) Neurological: moves all 4 limbs 3-4/5 strength on the RUE, 4-5/5 on other extremities Follows commands Deviation from normal: AAOx0 poor speech at this time Skin: cap refill <2 seconds Dx/Plan - Plan Plan: Code: Full Prophylaxis: pepcid Family: none at bedside Fluids: SL Drips: none Diet: NPO pending speech therapy Vent settings: Extubated Plan: This is a 79 yo female who presented with an ischemic stroke, received tPA and developed an intracranial bleed that is stable. Pt extubated, will transition to stroke and work for placement Ischemic left sided CVA, S/P tPA at 1510 (11/23) -Extubated 11/30, plans have speech therapy work with pt for diet, and transfer to the floor -Monitor BP -PRN labetalol and hydralazine -Neurology and stroke team consulted -Pt developed an intraparencamal right basal ganglia bleed as well as a left temporal lobe bleed that has remained stable on repeat CT -Plan snf placement Angioedema -S/P Benadryl, Pepcid, and solumedrol 125mg -Pt will likely need a steroid taper starting today Normocytic anemia -Stable Hypokalemia -CCU electrolyte protocol Elevated troponin, likely 2/2 CVA -EKG shows no signs of ST elevation or depression Lung nodules seen on CT -Consider oupt work up HTN -Starting back HCTZ Over reactive bladder Addendum - Attending - Attending Attestation Date/Time: 12/01/19 1122 I personally evaluated the patient and discussed the management with Dr. Gilmore. I agree with the History, Examination, Assessment and Plan documented above with any addition or exceptions noted below. Patient stable. 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 Awaiting swallow evaluation for diet and med decisions. Continue post-CVA care. Neuro on board. Will need placement. BP control but need to make sure she is safe to swallow meds.
--- NOTE | 2019-12-01 07:42 | PRG ---
DATE OF SERVICE: 12/01/2019 SUBJECTIVE: The patient has done well since extubation yesterday. She is able to verbalize some. She can follow commands with the left side. PHYSICAL EXAMINATION: VITAL SIGNS: Pulse ox is 100%, pulse 92, blood pressure 157/94. HEENT: Unremarkable. NECK: No adenopathy or JVD. CHEST: Clear. CARDIAC: S1 and S2. Regular. ABDOMEN: Soft. EXTREMITIES: No edema. LABORATORY DATA: Sodium 139, potassium 3.7, chloride 99, CO2 of 34, BUN 12, creatinine 0.7, glucose 128, white blood cell count 11.2, hematocrit 29.2, and platelet count 277. ASSESSMENT: 1. Post stroke. 2. Post respiratory failure requiring mechanical ventilation. 3. Schizophrenia. PLAN: This patient can be transferred to the Stroke Floor further rehab. No further pulmonary issues at this time. We will be available as needed. Job ID: [id number]
[2019-12-01] MEDS: Famotidine 40 MG/5 ML Oral Suspension PER TUBE SCH ×2 (08:00→23:02)
[2019-12-01] MEDS ORDERED: predniSONE 20 MG TAB PO SCH (08:00)
[2019-12-01] MEDS: Ziprasidone 60 MG CAP PO SCH ×2 (08:00→17:49)
[2019-12-01] MEDS: Gabapentin 100 MG CAP PO SCH ×3 (08:01→23:03)
[2019-12-01] MEDS: Mirtazapine 30 MG Soltab PO SCH (08:01)
[2019-12-01] MEDS: Hydrochlorothiazide 25 MG TAB PO SCH ×2 (08:01→23:03)
--- NOTE | 2019-12-01 14:21 | PDOC.HOSPP ---
- Subjective Encounter Date: 12/01/19 Subjective: NEUROLOGY PROGRESS NOTE Patient is alert and was able to track and followed simple commands like moving arms. - Objective Vital Signs & Weight: Vital Signs (12 hours) Temp Pulse Resp BP BP BP Pulse Ox 12/01/19 11:16 154/103 H 152/103 H 12/01/19 11:05 99.0 F 83 22 H 144/101 H 100 12/01/19 08:00 98.2 F 100 Weight Admit Weight 148 lb 3 oz Weight 167 lb 12.348 oz Most Recent Monitor Data Heart Rate from ECG 77 NIBP 154/87 NIBP BP-Mean 109 Respiration from ECG 21 SpO2 100 I&O: 11/30/19 12/01/19 12/02/19 06:59 06:59 06:59 Intake Total 2672 1491 300 Output Total 1800 950 Balance 872 541 300 Result Diagrams: 12/01/19 03:00 12/01/19 03:00 Radiology Reviewed by me: Yes EKG Reviewed by me: Yes Hospitalist ROS - Review of Systems ROS unobtainable: due to mental status (aphasia) - Medication Medications: Active Medications Generic Name Dose Route Start Last Admin Trade Name Freq PRN Reason Stop Dose Admin Acetaminophen 650 mg 11/24/19 16:37 11/29/19 08:55 Tylenol PO 650 mg Q4H PRN Administration Headache/Fever/Mild Pain (1-3) Atorvastatin Calcium 80 mg 11/25/19 21:00 11/30/19 21:10 Lipitor PO Not Given HS COLEEN Famotidine 20 mg 11/28/19 09:00 12/01/19 08:00 Pepcid PER TUBE Not Given BID COLEEN Gabapentin 100 mg 11/25/19 21:00 12/01/19 08:01 Neurontin PO Not Given TID COLEEN Hydralazine HCl 10 mg 11/24/19 16:37 11/30/19 11:51 Apresoline SLOW IVP 10 mg Q4H PRN Administration SBP > 180 or DBP > 105 Hydrochlorothiazide 12.5 mg 11/28/19 09:00 12/01/19 08:01 Hydrochlorothiazide PO Not Given BID COLEEN Mirtazapine 30 mg 11/26/19 09:00 12/01/19 08:01 Remeron Soltab PO Not Given DAILY COLEEN Prednisone 40 mg 12/01/19 08:00 12/01/19 08:00 Prednisone PO 12/05/19 08:01 Not Given QAM-WM COLEEN Sterile Water 1 ml 11/24/19 18:53 12/01/19 05:30 Bacteriostatic Water FS 1 ml PRN PRN Administration RECONSTITUTION Ziprasidone 60 mg 11/25/19 17:00 12/01/19 08:00 Geodon PO Not Given BID-WM COLEEN - Exam General Appearance: awake alert Eye: PERRL ENT: normocephalic atraumatic Neck: supple Heart: RRR Respiratory: CTAB Gastrointestinal: soft Extremities: no cyanosis Skin: normal turgor Neurological: facial droop, hemiplegia, speech deficit Psychiatric - other findings: aphasic Hosp A/P (1) Cerebral hemorrhage Code(s): I61.9 - NONTRAUMATIC INTRACEREBRAL HEMORRHAGE, UNSPECIFIED Status: Acute (2) Acute ischemic cerebrovascular accident (CVA) involving left middle cerebral artery territory Code(s): I63.512 - CEREB INFRC D/T UNSP OCCLS OR STENOS OF LEFT MID CEREB ART Status: Acute (3) HTN (hypertension) Code(s): I10 - ESSENTIAL (PRIMARY) HYPERTENSION Status: Acute (4) Schizoaffective disorder Code(s): F25.9 - SCHIZOAFFECTIVE DISORDER, UNSPECIFIED Status: Acute - Plan PT/OT, speech therapy This is a 79 yo female who presented with an acute onset left sided weakness . She received tPA and developed an intracranial bleed which was stable on repeat HCT. Patient extubated yesterday and more alert today. Followed simple commands. Transferred to stroke floor. Strict control of BP Continue Telemetry EEG reviewed and was negative for seizure activity. Neurochecks every 2 hours. Recommend resuming stroke work up MRI Brain, 2D Echo and CD P/OT/Speech NPO till cleared by speech. May need PEG DVT prophylaxis Continue medical management per primary team. Plan discussed with the nursing staff.
[2019-12-01] MEDS: Atorvastatin Calcium 40 MG TAB PO SCH (23:02)
--- NOTE | 2019-12-02 06:15 | PDOC.FM ---
- Subjective Subjective: Per nursing, pt did well overnight but is still NPO due to failed swallow study. She denies any needs this AM. - Objective MAR Reviewed: Yes Vital Signs & Weight: Vital Signs (12 hours) Temp Pulse Resp BP Pulse Ox 12/02/19 04:52 92 L 12/02/19 04:13 97.5 F L 84 18 144/100 H 92 L 12/02/19 00:38 97.8 F 86 18 164/94 H 12/01/19 23:15 93 L Weight Admit Weight 67.217 kg Weight 76.1 kg Most Recent Monitor Data Heart Rate from ECG 77 NIBP 154/87 NIBP BP-Mean 109 Respiration from ECG 21 SpO2 100 I&O: 11/30/19 12/01/19 12/02/19 06:59 06:59 06:59 Intake Total 2672 1491 320 Output Total 1800 950 Balance 872 541 320 Result Diagrams: 12/01/19 03:00 12/01/19 03:00 Phys Exam - Physical Examination Constitutional: NAD HEENT: moist MMs left cataract, right eye PERRLA Respiratory: no wheezing, clear to auscultation bilateral Cardiovascular: RRR, no significant murmur Gastrointestinal: soft, no distention, positive bowel sounds Musculoskeletal: pulses present, edema present (trace) Neurological: moves all 4 limbs (3/5 strength in the right upper extremity, 4-5/ 5 globally elsewhere) Deviation from normal: AAO to person, place Skin: normal turgor, cap refill <2 seconds Dx/Plan - Plan Plan: Ischemic left sided CVA, S/P tPA at 1510 (11/23) -Extubated 11/30, plans have speech therapy work with pt for diet -Monitor BP -PRN labetalol and hydralazine -Neurology and stroke team consulted -Pt developed an intraparencamal right basal ganglia bleed as well as a left temporal lobe bleed that has remained stable on repeat CT -Plan snf placement -Pt is NPO due to failed swallow study, will add D5 to maintenance fluids, pending further speech eval Angioedema -S/P Benadryl, Pepcid, and solumedrol 125mg -Steroid taper Normocytic anemia -Stable Hypokalemia -CCU electrolyte protocol Elevated troponin, likely 2/2 CVA -EKG shows no signs of ST elevation or depression Lung nodules seen on CT -Consider oupt work up HTN -Pt is NPO, will start enalopril along with PRN medications Over reactive bladder Addendum - Attending - Attending Attestation Date/Time: 12/02/19 1219 I personally evaluated the patient and discussed the management with Dr. Gilmore. I agree with the History, Examination, Assessment and Plan documented above with any addition or exceptions noted below. Patient overall stable. Still not safe to swallow. Discussion with family about PEG placement. Continue post -CVA care.
[2019-12-02] MEDS: Dextrose 5%-Lactated Ringers 1,000 ML IV SCH ×3 (08:28→18:17)
[2019-12-02] MEDS: methylPREDNISolone Sod Succ 40 MG VIAL IVP SCH ×2 (08:29→21:37)
[2019-12-02] MEDS: Ziprasidone 60 MG CAP PO SCH ×2 (08:29→16:59)
[2019-12-02] MEDS: Gabapentin 100 MG CAP PO SCH ×3 (08:30→21:19)
[2019-12-02] MEDS: Amlodipine 5 MG TAB PO SCH (08:30)
[2019-12-02] MEDS: Hydrochlorothiazide 25 MG TAB PO SCH ×2 (08:30→21:19)
[2019-12-02] MEDS: Mirtazapine 30 MG Soltab PO SCH (08:30)
[2019-12-02] MEDS: Famotidine 40 MG/5 ML Oral Suspension PER TUBE SCH ×2 (08:30→21:19)
--- NOTE | 2019-12-02 10:23 | MRI ---
MRI BRAIN NONCONTRAST: DATE: 12/02/2019 HISTORY: 79-year-old female follow-up stroke. Altered mental status. COMPARISON: None FINDINGS: Approximately 1 x 1 x 0.5 cm focal intra-axial lesion at anterior portion of right basal ganglia and anterior limb of right internal capsule, with surrounding small patch of vasogenic edema consisting of intracellular methemoglobin (T1 shortening, intermediate signal on T2 WI, and magnetic susceptibil ity blooming on gradient echo). Approximately 1.2 x 0.9 x 0.8 cm lesion at anterior left temporal lobe with similar signal characteri stics (intracellular met hemoglobin) cyst, with surrounding small halo of vasogenic edema. Diffuse, severe confluent hyperintense signal on T2 WI and FLAIR, throughout periventricular and deep white matter, encroaching upon subcortical white matter, throughout bilateral cerebral consistent with chronic ischemic white matter changes due to small vessel disease. A large number of small and moderate sized old infarctions throughout the bilateral cerebellar hemisp heres. Flow voids are grossly maintained in the major central arteries of [place] of [place]. No obstructive hydrocephalus, mass effect, midline shift, or extra-axial fluid collection. There are multiple small and tiny foci of restricted diffusion in the cerebrum bilaterally, indicatin g multiple acute small infarctions, scattered in the bilateral valderrama radiata and centrum semiovale. Most of these are subcentimeter in size. One of the larger focal acute infarctions, measuring approximately 1.3 x 0.8 cm is located at the joshua ction between left valderrama radiata and upper left basal ganglia, and it is hyperintense on T2 WI and FLAIR. There is a tiny acute lacunar infarction at left caudate head a few millimeters in size. There is even a small acute infarction in the anterior right basal ganglia, abutting the superior pos terior edge of the small focal hematoma mentioned above. There are several punctate foci of magnetic susceptibility artifact scattered in bilateral cerebrum, right josie, right cerebral peduncle of midbrain, and right cerebellar hemisphere, representing tiny foci of remote hemorrhages. This suggests cerebral amyloid angiopathy. Small old lacunar infarctions of right thalamus and bilateral basal ganglia. IMPRESSION: 1) multiple tiny, punctate acute bilateral cerebral infarctions, with involvement of corpus striatum. These are in the bilateral middle cerebral artery distributions and/or watershed zones between bilateral middle cerebral artery and anterior cerebral artery distributions. 2) a slightly larger than 1 cm focal acute infarction at left corpus striatum/deep white matter. 3) early subacute small intra-axial hemorrhages, one in the right basal ganglia and the other in the left temporal lobe. 4) evidence for multiple tiny, old brain hemorrhages: Evidence for cerebral amyloid angiopathy. 5) a large number of bilateral cerebellar old infarctions. 6) severe chronic ischemic white matter changes due to small vessel disease.
--- NOTE | 2019-12-02 11:14 | EEG ---
Please delete this document. MTDD
[2019-12-02] MEDS: Enalaprilat Dihydrate 1.25 MG/ML VIAL SLOW IVP SCH ×2 (12:31→18:18)
--- NOTE | 2019-12-02 14:23 | PDOC.HOSPP ---
- Subjective Encounter Date: 12/02/19 Subjective: NEUROLOGY PROGRESS NOTE Patient is alert and was able to track and followed simple commands like smiling and squeezing fingers. - Objective Vital Signs & Weight: Vital Signs (12 hours) Temp Pulse Resp BP BP Pulse Ox 12/02/19 12:31 165/97 H 12/02/19 11:26 99.4 F 70 18 142/100 H 94 L 12/02/19 08:30 86 12/02/19 07:13 99.2 F 86 16 161/96 H 94 L 12/02/19 04:52 92 L 12/02/19 04:13 97.5 F L 84 18 144/100 H 92 L Weight Admit Weight 148 lb 3 oz Weight 167 lb 12.348 oz Most Recent Monitor Data Heart Rate from ECG 77 NIBP 154/87 NIBP BP-Mean 109 Respiration from ECG 21 SpO2 100 I&O: 12/01/19 12/02/19 12/03/19 06:59 06:59 06:59 Intake Total 1491 320 Output Total 950 Balance 541 320 Result Diagrams: 12/01/19 03:00 12/01/19 03:00 Radiology Reviewed by me: Yes EKG Reviewed by me: Yes Hospitalist ROS - Review of Systems ROS unobtainable: due to mental status (aphasia) - Medication Medications: Active Medications Generic Name Dose Route Start Last Admin Trade Name Freq PRN Reason Stop Dose Admin Acetaminophen 650 mg 11/24/19 16:37 11/29/19 08:55 Tylenol PO 650 mg Q4H PRN Administration Headache/Fever/Mild Pain (1-3) Amlodipine Besylate 5 mg 12/02/19 09:00 12/02/19 08:30 Norvasc PO Not Given DAILY COLEEN Atorvastatin Calcium 80 mg 11/25/19 21:00 12/01/19 23:02 Lipitor PO Not Given HS COLEEN Enalaprilat 2.5 mg 12/02/19 12:00 12/02/19 12:31 Vasotec SLOW IVP 2.5 mg Q6HR COLEEN Administration Famotidine 20 mg 11/28/19 09:00 12/02/19 08:30 Pepcid PER TUBE Not Given BID COLEEN Gabapentin 100 mg 11/25/19 21:00 12/02/19 08:30 Neurontin PO Not Given TID COLEEN Hydralazine HCl 10 mg 11/24/19 16:37 11/30/19 11:51 Apresoline SLOW IVP 10 mg Q4H PRN Administration SBP > 180 or DBP > 105 Hydrochlorothiazide 25 mg 12/01/19 21:00 12/02/19 08:30 Hydrochlorothiazide PO Not Given BID COLEEN Dextrose/Lactated Ringer's 1,000 mls @ 125 mls/hr 12/02/19 06:15 12/02/19 08: 28 D5 Lr IV 1,000 mls .Q8H COLEEN Administration Methylprednisolone Sodium Succinate 40 mg 12/01/19 21:00 12/02/19 08:29 Solu-Medrol IVP 40 mg Q12HR COLEEN Administration Mirtazapine 30 mg 11/26/19 09:00 12/02/19 08:30 Remeron Soltab PO Not Given DAILY COLEEN Sodium Chloride 10 ml 12/02/19 09:00 12/02/19 08:29 Flush - Normal Saline IVF 10 ml Q12HR COLEEN Administration Sterile Water 1 ml 11/24/19 18:53 12/01/19 05:30 Bacteriostatic Water FS 1 ml PRN PRN Administration RECONSTITUTION Ziprasidone 60 mg 11/25/19 17:00 12/02/19 08:29 Geodon PO Not Given BID-WM COLEEN - Exam General Appearance: awake alert Eye: PERRL ENT: normocephalic atraumatic Neck: supple Heart: RRR Respiratory: CTAB Gastrointestinal: soft Extremities: no cyanosis Skin: normal turgor Neurological: no new deficit Psychiatric: not oriented (aphasic) Hosp A/P (1) Cerebral hemorrhage Code(s): I61.9 - NONTRAUMATIC INTRACEREBRAL HEMORRHAGE, UNSPECIFIED Status: Acute (2) Acute ischemic cerebrovascular accident (CVA) involving left middle cerebral artery territory Code(s): I63.512 - CEREB INFRC D/T UNSP OCCLS OR STENOS OF LEFT MID CEREB ART Status: Acute (3) HTN (hypertension) Code(s): I10 - ESSENTIAL (PRIMARY) HYPERTENSION Status: Acute (4) Schizoaffective disorder Code(s): F25.9 - SCHIZOAFFECTIVE DISORDER, UNSPECIFIED Status: Acute - Plan PT/OT, speech therapy This is a 79 yo female who presented with an acute onset left sided weakness . She received tPA and developed an intracranial bleed which was stable on repeat HCT. Transferred to stroke floor yesterday Consider starting aspirin for secondary stroke prevention.. Strict control of BP Continue Telemetry EEG reviewed and was negative for seizure activity. Neurochecks every 2 hours. MRI Brain showed bilateral middle cerebral artery and watershed infarcts. 2D Echo showed LVEF 50-55% and no thromus or PFO. P/OT/Speech NPO till cleared by speech. Speech suggested PEG tube. DVT prophylaxis Continue medical management per primary team. Plan discussed with the nursing staff and the primary attending.
--- NOTE | 2019-12-02 16:30 | PDOC.PALFU ---
Palliative Care Follow-up Note Attempting to contact patient son Errol Calix to discuss goal of care and complex decision making in relation to his mothers care, specifically PEG verses pleasure feedings. Attempt both numbers that were available. Left a message for a return phone call. Will attempt to set up a time for him to come see his mother and further discuss Goal of Care in relation to PEG verses pleasure feedings with known risk and hospice consideration.
--- NOTE | 2019-12-02 16:33 | PDOC.PALPN ---
Palliative Progress Note - Subjective Awake, delayed speech of one word intermittantly. Able to grasp fingers. - Objective Vital Signs: Vital Signs - Most Recent Temp Pulse Resp BP Pulse Ox 99.3 F 68 16 160/103 H 93 L 12/02/19 15:35 12/02/19 15:35 12/02/19 15:35 12/02/19 15:35 12/02/19 15:35 - Physical Exam Constitutional: confusion, ill appearing HEENT: moist MMs, PERRLA Respiratory: no wheezing, unlabored breathing Cardiovascular: RRR Gastrointestinal: soft, non-tender Genitourinary: incontinent Musculoskeletal: no cyanosis, no clubbing Neurology: speech deficit Deviation from normal: aphagic, dysphagia Skin: cap refill <2 seconds, no lesions, no rash Deviation from normal: Oriented to self - Plan Plan: Dysphagia posing an aspiration risk. Dr Gilmore communicated with patient son in relation to consideration of PEG verses pleasure feedings with consideration of hospice. Attempted to contact son to discuss complex decision making, and gain insight to if the patient had expressed to him any wishes in relation to her care. Palliative Care will continue to attempt to contact son, consideration for meeting 12/02 to further discuss. [25] minutes spent on this encounter with >50% of the time in counseling and coordination of care. - ROS Non Response: due to mental status
[2019-12-02] MEDS: Atorvastatin Calcium 40 MG TAB PO SCH (21:19)
[2019-12-03] MEDS: Enalaprilat Dihydrate 1.25 MG/ML VIAL SLOW IVP SCH ×5 (00:25→23:37)
[2019-12-03] MEDS: Dextrose 5%-Lactated Ringers 1,000 ML IV SCH ×2 (04:04→16:01)
--- NOTE | 2019-12-03 06:04 | PDOC.FM ---
- Subjective Subjective: Pt denies any needs or pain this morning. - Objective MAR Reviewed: Yes Vital Signs & Weight: Vital Signs (12 hours) Temp Pulse Resp BP BP Pulse Ox 12/03/19 04:00 98.5 F 80 20 156/95 H 95 12/03/19 00:38 160/88 H 12/03/19 00:25 165/107 H 12/03/19 00:00 98.3 F 83 25 H 165/107 H 95 12/02/19 21:37 93 L 12/02/19 20:00 98.3 F 84 15 178/106 H 93 L 12/02/19 19:08 97.4 F L 84 17 143/88 H 98 12/02/19 18:18 177/100 H Weight Admit Weight 67.217 kg Weight 74.435 kg Most Recent Monitor Data Heart Rate from ECG 77 NIBP 154/87 NIBP BP-Mean 109 Respiration from ECG 21 SpO2 100 I&O: 12/01/19 12/02/19 12/03/19 06:59 06:59 06:59 Intake Total 7054 225 9036 Output Total 950 Balance 283 267 0820 Result Diagrams: 12/03/19 06:50 12/03/19 06:50 Phys Exam - Physical Examination Constitutional: NAD HEENT: moist MMs Respiratory: no wheezing, clear to auscultation bilateral Cardiovascular: RRR, no significant murmur Gastrointestinal: soft, no distention, positive bowel sounds Musculoskeletal: pulses present, edema present (trace) Neurological: moves all 4 limbs (weakness unchanged on the right UE) Deviation from normal: Oriented to person and place Skin: cap refill <2 seconds Dx/Plan - Plan Plan: Ischemic left sided CVA, S/P tPA at 1510 (11/23) -Extubated 11/30 -Monitor BP -PRN labetalol and hydralazine -Neurology and stroke team consulted -Pt developed an intraparencamal right basal ganglia bleed as well as a left temporal lobe bleed that has remained stable on repeat CT -Plan snf placement -Pt is NPO due to failed swallow study, will add D5 to maintenance fluids Angioedema -S/P Benadryl, Pepcid, and solumedrol 125mg -Steroid taper Normocytic anemia -Stable Hypokalemia, resolved Elevated troponin, likely 2/2 CVA -EKG shows no signs of ST elevation or depression Lung nodules seen on CT -Consider oupt work up HTN -Pt is NPO, will start enalopril along with PRN medications Over reactive bladder I had a lengthy discussion with the patient's son yesterday afternoon. We discussed possible PEG tube placement vs hospice at this point. I am consulting palliative team as well to help with decision making and for a family visit. Addendum - Attending - Attending Attestation Date/Time: 12/03/19 [id number] I personally evaluated the patient and discussed the management with Dr. Gilmore. I agree with the History, Examination, Assessment and Plan documented above with any addition or exceptions noted below. Patient stable. Family conversation about PEG tube placement. Neuro does not feel patient will make meaningful recovery.
[2019-12-03] MEDS ORDERED: Labetalol HCl 100 MG/20 ML VIAL SLOW IVP PRN (06:07)
[2019-12-03 06:58] LABS: #Basophils 0.1 thou/uL (0.0-0.2); #Lymphocytes 0.7 thou/uL (1.20-3.40); #Monocytes 0.9 thou/uL (0.11-0.59); #Neutrophils 5.8 thou/uL (1.40-6.50); %Basophils 0.7 % (0.0-1.0); %Eosinophils 0.1 % (0.0-10.0); %Lymphocytes 9.3 % (21.0-51.0); %Monocytes 11.7 % (0.0-10.0); %Neutrophils 78.1 % (42.0-75.0); Hemoglobin 8.8 g/dL (12.0-16.0); Mean Corpuscular HGB CONC 30.9 g/dL (32.0-36.0); Mean Corpuscular Hemoglobin 29.3 pg (27.0-31.0); Mean Corpuscular Volume 94.9 fL (78.0-98.0); Mean Platelet Volume 7.6 fL (7.4-10.4); Platelet Count 242 thou/uL (130-400); RBC Distribution Width 13.2 % (11.5-14.5); Red Blood Cell (RBC) Count 3.01 mill/uL (4.20-5.40); White Blood Cell (WBC) Count 7.4 thou/uL (4.8-10.8)
[2019-12-03 07:19] LABS: Anion Gap 11 mmol/L (10-20); BUN (Urea Nitrogen) 19 mg/dL (9.8-20.1); Calc. Creatinine Clearance 76 mL/min (70-130); Calcium 8.9 mg/dL (7.8-10.44); Carbon Dioxide 31 mmol/L (23-31); Chloride 100 mmol/L (98-107); Estimated GFR-MDRD Greater than 90; Glucose 156 mg/dL (83-110); Potassium 3.5 mmol/L (3.5-5.1); Sodium 138 mmol/L (136-145)
[2019-12-03 07:25] LABS: Hypochromia SLIGHT = 6-15 cells (100X) (0-5/hpf); MDiff Complete? YES; Platelet Morphology Comment Appears Adequate; Polychromasia SLIGHT = 2-3 cells (100X) (0-2/hpf)
[2019-12-03] MEDS: hydrALAZINE 20 MG/ML VIAL SLOW IVP PRN (08:42)
[2019-12-03] MEDS: Ziprasidone 60 MG CAP PO SCH ×2 (08:43→16:01)
[2019-12-03] MEDS: methylPREDNISolone Sod Succ 40 MG VIAL IVP SCH ×2 (08:43→21:26)
[2019-12-03] MEDS: Amlodipine 5 MG TAB PO SCH (08:43)
[2019-12-03] MEDS: Famotidine 40 MG/5 ML Oral Suspension PER TUBE SCH ×2 (08:43→21:24)
[2019-12-03] MEDS: Hydrochlorothiazide 25 MG TAB PO SCH ×2 (08:43→21:25)
[2019-12-03] MEDS: Mirtazapine 30 MG Soltab PO SCH (08:43)
[2019-12-03] MEDS: Gabapentin 100 MG CAP PO SCH ×3 (08:44→21:25)
--- NOTE | 2019-12-03 12:41 | PDOC.HOSPP ---
- Subjective Encounter Date: 12/03/19 Subjective: NEUROLOGY PROGRESS NOTE Patient is alert and was able to track and followed simple commands - Objective Vital Signs & Weight: Vital Signs (12 hours) Temp Pulse Resp BP BP Pulse Ox 12/03/19 12:17 159/95 H 12/03/19 11:25 98.5 F 85 24 H 159/95 H 97 12/03/19 08:42 66 168/109 H 12/03/19 08:39 99 12/03/19 07:22 98.7 F 66 18 168/109 H 99 12/03/19 06:32 165/107 H 12/03/19 04:00 98.5 F 80 20 156/95 H 95 Weight Admit Weight 148 lb 3 oz Weight 164 lb 1.6 oz Most Recent Monitor Data Heart Rate from ECG 77 NIBP 154/87 NIBP BP-Mean 109 Respiration from ECG 21 SpO2 100 I&O: 12/02/19 12/03/19 12/04/19 06:59 06:59 06:59 Intake Total 320 2542.5 413 Balance 320 2542.5 413 Result Diagrams: 12/03/19 06:50 12/03/19 06:50 Additional Labs: Accuchecks 12/03/19 12/02/19 10:36 21:21 POC Glucose 138 H 135 H Radiology Reviewed by me: Yes EKG Reviewed by me: Yes Hospitalist ROS - Review of Systems ROS unobtainable: due to mental status (aphasia) - Medication Medications: Active Medications Generic Name Dose Route Start Last Admin Trade Name Freq PRN Reason Stop Dose Admin Acetaminophen 650 mg 11/24/19 16:37 11/29/19 08:55 Tylenol PO 650 mg Q4H PRN Administration Headache/Fever/Mild Pain (1-3) Amlodipine Besylate 5 mg 12/02/19 09:00 12/03/19 08:43 Norvasc PO Not Given DAILY COLEEN Atorvastatin Calcium 80 mg 11/25/19 21:00 12/02/19 21:19 Lipitor PO Not Given HS COLEEN Enalaprilat 5 mg 12/03/19 10:57 12/03/19 12:17 Vasotec SLOW IVP 5 mg Q6H COLEEN Administration Famotidine 20 mg 11/28/19 09:00 12/03/19 08:43 Pepcid PER TUBE Not Given BID COLEEN Gabapentin 100 mg 11/25/19 21:00 12/03/19 08:44 Neurontin PO Not Given TID COLEEN Hydralazine HCl 10 mg 12/03/19 00:25 12/03/19 08:42 Apresoline SLOW IVP 10 mg Q4H PRN Administration SBP > 160 or DBP > 90 Hydrochlorothiazide 25 mg 12/01/19 21:00 12/03/19 08:43 Hydrochlorothiazide PO Not Given BID COLEEN Dextrose/Lactated Ringer's 1,000 mls @ 125 mls/hr 12/02/19 06:15 12/03/19 04: 04 D5 Lr IV 1,000 mls .Q8H COLEEN Administration Methylprednisolone Sodium Succinate 40 mg 12/01/19 21:00 12/03/19 08:43 Solu-Medrol IVP 40 mg Q12HR COLEEN Administration Mirtazapine 30 mg 11/26/19 09:00 12/03/19 08:43 Remeron Soltab PO Not Given DAILY COLEEN Sodium Chloride 10 ml 12/02/19 09:00 12/03/19 08:43 Flush - Normal Saline IVF 10 ml Q12HR COLEEN Administration Sodium Chloride 10 ml 12/02/19 06:20 12/03/19 12:18 Flush - Normal Saline IVF 10 ml PRN PRN Administration Saline Flush Sterile Water 1 ml 11/24/19 18:53 12/01/19 05:30 Bacteriostatic Water FS 1 ml PRN PRN Administration RECONSTITUTION Ziprasidone 60 mg 11/25/19 17:00 12/03/19 08:43 Geodon PO Not Given BID-WM COLEEN - Exam General Appearance: awake alert Eye: PERRL ENT: normocephalic atraumatic Neck: supple Heart: RRR Respiratory: CTAB Gastrointestinal: soft Extremities: no cyanosis Skin: normal turgor Neurological: no new deficit Musculoskeletal: normal tone Psychiatric: not oriented (aphasic) Hosp A/P (1) Cerebral hemorrhage Code(s): I61.9 - NONTRAUMATIC INTRACEREBRAL HEMORRHAGE, UNSPECIFIED Status: Acute (2) Acute ischemic cerebrovascular accident (CVA) involving left middle cerebral artery territory Code(s): I63.512 - CEREB INFRC D/T UNSP OCCLS OR STENOS OF LEFT MID CEREB ART Status: Acute (3) HTN (hypertension) Code(s): I10 - ESSENTIAL (PRIMARY) HYPERTENSION Status: Acute (4) Schizoaffective disorder Code(s): F25.9 - SCHIZOAFFECTIVE DISORDER, UNSPECIFIED Status: Acute - Plan PT/OT, speech therapy, DVT proph w/SCDs This is a 79 yo female who presented with an acute onset left sided weakness . She received tPA and developed an intracranial bleed which was stable on repeat HCT. MRI Brain showed bilateral middle cerebral artery and watershed infarcts. NPO till cleared by speech. Speech suggested PEG tube. Primary attending talking to the family about PEG . Aspirin for secondary stroke prevention.. Strict control of BP Continue Telemetry EEG reviewed and was negative for seizure activity. Neurochecks every 2 hours. 2D Echo showed LVEF 50-55% and no thromus or PFO. P/OT/Speech DVT prophylaxis Continue medical management per primary team. Plan discussed with the nursing staff and the primary attending.
--- NOTE | 2019-12-03 15:04 | PDOC.FMACP ---
Advance Care Planning - Problem (1) Dysphagia Status: Acute Code(s): R13.10 - DYSPHAGIA, UNSPECIFIED (2) Palliative care encounter Status: Acute Code(s): Z51.5 - ENCOUNTER FOR PALLIATIVE CARE (3) Acute ischemic cerebrovascular accident (CVA) involving left middle cerebral artery territory Status: Acute Code(s): I63.512 - CEREB INFRC D/T UNSP OCCLS OR STENOS OF LEFT MID CEREB ART (4) Cerebral hemorrhage Status: Acute Code(s): I61.9 - NONTRAUMATIC INTRACEREBRAL HEMORRHAGE, UNSPECIFIED (5) HTN (hypertension) Status: Acute Code(s): I10 - ESSENTIAL (PRIMARY) HYPERTENSION (6) Normocytic anemia Status: Acute Code(s): D64.9 - ANEMIA, UNSPECIFIED - Note Participants: patient, family, palliative care, other Summary: Introduced Advanced Care Planning to patient son and daughter in law, patient present but not decisional. The diagnosis, prognosis and goals of care were discussed. Appropriate forms and documentation to accomplish the goals of care were discussed. All questions were answered. Family is electing to transition to hospice after PEG placement. Will complete OOHDNAR and DNAR at that time. Family wishes to seek comfort at the end of life for patient and for go aggressive treatments. The Palliative Care Team will continue to assist with completion of any outstanding forms as identified.
--- NOTE | 2019-12-03 16:17 | PDOC.PALPN ---
Palliative Progress Note - Subjective Awake, unable to determine orientation beyond self/has an awareness of her family. Able to speak one-two word phrases but slurred and difficult to understand. - Objective Vital Signs: Vital Signs - Most Recent Temp Pulse Resp BP Pulse Ox 98.5 F 85 24 H 153/97 H 97 12/03/19 11:25 12/03/19 11:25 12/03/19 11:25 12/03/19 13:12 12/03/19 11:25 - Physical Exam Constitutional: ill appearing HEENT: sclera anicteric Respiratory: clear to auscultation bilateral, no wheezing, unlabored breathing Cardiovascular: RRR Gastrointestinal: soft, non-tender, incontinent Genitourinary: incontinent Musculoskeletal: pulses present, edema present, diffuse muscle atrophy Neurology: moves all 4 limbs, speech deficit Deviation from normal: weakness right upper ext/mild. Dysphagia Skin: cap refill <2 seconds, no lesions, no rash Deviation from normal: Alert oriented to self. - Assessment (1) Dysphagia Code(s): R13.10 - DYSPHAGIA, UNSPECIFIED Current Visit: Yes Status: Acute (2) Palliative care encounter Code(s): Z51.5 - ENCOUNTER FOR PALLIATIVE CARE Current Visit: Yes Status: Acute (3) Acute ischemic cerebrovascular accident (CVA) involving left middle cerebral artery territory Code(s): I63.512 - CEREB INFRC D/T UNSP OCCLS OR STENOS OF LEFT MID CEREB ART Current Visit: Yes Status: Acute (4) Cerebral hemorrhage Code(s): I61.9 - NONTRAUMATIC INTRACEREBRAL HEMORRHAGE, UNSPECIFIED Current Visit: Yes Status: Acute (5) HTN (hypertension) Code(s): I10 - ESSENTIAL (PRIMARY) HYPERTENSION Current Visit: Yes Status: Acute (6) Normocytic anemia Code(s): D64.9 - ANEMIA, UNSPECIFIED Current Visit: Yes Status: Acute - Plan Plan: Lengthy family meeting. Son and daughter in law present as well as Dr Gilmore. Family on conference call. Discussed effects of CVA and patient status. Discussed Peg/dysphagia. Family is electing to have a peg placed to promote nutrition and ability to continue medications, however wish to transition home after PEG placement with hospice care. Family hopeful for management of symptoms related to terminal condition to promote optimal end of life care. Please also refer to J Shupak RN notes in note section Family will complete OOHDNAR after PEG placement [30] minutes spent on this encounter with >50% of the time in counseling and coordination of care. - ROS Non Response: due to mental status
[2019-12-03] MEDS: Atorvastatin Calcium 40 MG TAB PO SCH (21:24)
[2019-12-04] MEDS: Dextrose 5%-Lactated Ringers 1,000 ML IV SCH ×2 (00:15→08:53)
--- NOTE | 2019-12-04 01:35 | CON ---
DATE OF CONSULTATION: 12/03/2019 REASON FOR CONSULT: Request for PEG tube placement. HISTORY OF PRESENT ILLNESS: Ms. Calix is a pleasant 79-year-old who was admitted to the hospital on 11/23 with a stroke. She had tPA and stroke converted to hemorrhagic. The patient had been living at a long-term nursing facility prior to that. She had a fall there. Apparently after the tPA, she initially improved and then she had a little episode of angioedema and she was intubated. Ultimately, she had hemorrhagic transformation of her stroke. She has had improvement over time now, but is having significant dysarthria and dysphagia. Primary services talked to family about PEG tube placement and asked me to consult regarding that. PAST MEDICAL HISTORY: CVA with hemorrhagic transformation, prior history of schizophrenia, history of sleep apnea, hypertension. PAST SURGICAL HISTORY: Cholecystectomy, cataract surgery, hip replacement, endometrial biopsies. FAMILY HISTORY: Noncontributory. She does not drink. 10 years. REVIEW OF SYSTEMS: Unable to be obtained. MEDICATIONS: 1. Tylenol. 2. Norvasc. 3. Lipitor. 4. D5 LR 125 an hour. 5. Pepcid. 6. Neurontin. 7. Apresoline. 8. Hydrochlorothiazide. 9. Creon p.r.n. 10. Solu-Medrol 40 IV q.12. 11. Mirtazapine. 12. Zofran. 13. Sodium bicarb p.r.n. PHYSICAL EXAMINATION: LUNGS: Clear. HEART: Regular without clicks or murmurs. ABDOMEN: Soft and nontender. There is no rebounding. There is no guarding. There is no scars in the upper abdomen. She does speak a little bit. She seems to be appropriate and understands. She is able to wants to say on a card. ASSESSMENT: Oropharyngeal dysphagia after stroke, expressive aphasia with some dysarthria. PLAN: PEG tube placement. I think this is a reasonable approach at this time. She has a significant chance for good recovery to where she will be able to eat and drink in the future on her own. I talked to the family about the risks and benefits, possible complications of procedure including specifically the risk of infection, bleeding, perforation, or injury to adjacent organs. They understand this and wished to proceed. PLAN: EGD with PEG tube placement tomorrow. Job ID: [id number]
[2019-12-04] MEDS: Enalaprilat Dihydrate 1.25 MG/ML VIAL SLOW IVP SCH ×2 (04:09→14:23)
--- NOTE | 2019-12-04 06:09 | PDOC.FM ---
- Subjective Subjective: Pt did well overnight. She did have some complaint of abdominal pain in which her bladder was cathed and found to have 300cc of urine. There has not been any further complaints. She is NPO for PEG tube placement today. - Objective MAR Reviewed: Yes Vital Signs & Weight: Vital Signs (12 hours) Temp Pulse Resp BP BP BP Pulse Ox 12/04/19 04:09 155/111 H 12/04/19 04:00 97.8 F 84 20 150/111 H 96 12/04/19 00:00 98.3 F 90 20 98 12/03/19 23:57 152/82 H 12/03/19 23:37 149/104 H 12/03/19 19:28 99.2 F 82 16 149/104 H 95 12/03/19 18:10 154/97 H Weight Admit Weight 67.217 kg Weight 74.661 kg Most Recent Monitor Data Heart Rate from ECG 77 NIBP 154/87 NIBP BP-Mean 109 Respiration from ECG 21 SpO2 100 I&O: 12/02/19 12/03/19 12/04/19 06:59 06:59 06:59 Intake Total 320 2542.5 2996.75 Balance 320 2542.5 2996.75 Result Diagrams: 12/03/19 06:50 12/03/19 06:50 Phys Exam - Physical Examination Constitutional: NAD HEENT: moist MMs Neck: no JVD Respiratory: no wheezing Coarse lung sounds Cardiovascular: RRR, no significant murmur Gastrointestinal: soft, non-tender, no distention, positive bowel sounds Musculoskeletal: pulses present, edema present (trace) Neurological: moves all 4 limbs (weaker right UE) Deviation from normal: AAO to person and place Skin: cap refill <2 seconds Dx/Plan - Plan Plan: Ischemic left sided CVA, S/P tPA at 1510 (11/23) -Extubated 11/30 -Monitor BP -PRN labetalol and hydralazine -Neurology and stroke team consulted -Pt developed an intraparencamal right basal ganglia bleed as well as a left temporal lobe bleed that has remained stable on repeat CT -Plan snf placement -Pt is NPO with plans for peg tube placement today Angioedema -S/P Benadryl, Pepcid, and solumedrol 125mg -Steroid taper, currently solumedrol 40mg IV q day, will switch to prednisone with PEG tube Normocytic anemia -Stable Hypokalemia, resolved Elevated troponin, likely 2/2 CVA -EKG shows no signs of ST elevation or depression Lung nodules seen on CT HTN -Pt is NPO, will start enalopril along with PRN medications Over reactive bladder I had a lengthy discussion with the patient's son yesterday afternoon. We discussed the options available to them and the family had decided to have a PEG tube placed. Dr. Mckinley has been consulted and this procedure is scheduled for today. Addendum - Attending - Attending Attestation Date/Time: 12/04/19 5265 I personally evaluated the patient and discussed the management with Dr. Gilmore. I agree with the History, Examination, Assessment and Plan documented above with any addition or exceptions noted below. Patient here for acute CVA in setting of dementia s/p TPA with hemorrhagic conversion and angioedema. 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 She is going for PEG tube today. Will then need PO med titration for post-CVA care and decision about rehab versus hospice placement by family.
[2019-12-04] MEDS ORDERED: methylPREDNISolone Sod Succ 40 MG VIAL IVP SCH ×2 (06:30→21:00)
[2019-12-04 08:44] LABS: Cardiac Risk 2.4 (Less than 4.5)
[2019-12-04] MEDS: hydrALAZINE 20 MG/ML VIAL SLOW IVP PRN (08:54)
[2019-12-04] MEDS: Ziprasidone 60 MG CAP PO SCH (08:57)
[2019-12-04] MEDS: Amlodipine 5 MG TAB PO SCH (08:57)
[2019-12-04] MEDS: Hydrochlorothiazide 25 MG TAB PO SCH (08:58)
[2019-12-04] MEDS: Gabapentin 100 MG CAP PO SCH ×2 (08:58→16:42)
[2019-12-04] MEDS: Mirtazapine 30 MG Soltab PO SCH (08:58)
[2019-12-04] MEDS ORDERED: PROPOFOL 200 MG/20 ML VIAL ONE (10:19)
--- NOTE | 2019-12-04 15:34 | OP ---
DATE OF PROCEDURE: 12/04/2019 PREPROCEDURE DIAGNOSES: CVA with oropharyngeal dysphagia, expressive aphasia. POSTOPERATIVE DIAGNOSIS: PEG tube placement by Ponsky pull technique. ANESTHESIA: TIVA. Ancef 1 g given preoperatively for infection prophylaxis. RECOMMENDATIONS: Begin tube feeds later today, clean PEG tube daily with soap and water. PROCEDURE IN DETAIL: After the patient was informed of the risks, benefits, and possible complications of endoscopy including perforation, reaction to medication, and aspiration, informed consent was obtained. The patient was brought to endoscopy suite, where she was sedated in gradual fashion. Once she was comfortable, a bite block was placed in the incisural orifice. The endoscope was advanced through the esophagus, stomach, into second and third portions of the duodenum and then slowly removed. There was good visualization of the mucosa. There were no ulcers, masses, or lesions. Adequate place for PEG tube placement was identified by finger indentation and transillumination and a PEG tube was placed by Ponsky pull technique. The scope was removed. The patient tolerate the procedure well. There were no complications. Job ID: [id number]
--- NOTE | 2019-12-04 16:11 | PDOC.PALPN ---
Palliative Progress Note - Subjective Aphagic today, awake and makes eye contact. PEG successfully placed today - Objective Vital Signs: Vital Signs - Most Recent Temp Pulse Resp BP Pulse Ox 98.1 F 76 16 142/83 H 96 12/04/19 15:51 12/04/19 15:51 12/04/19 15:51 12/04/19 15:51 12/04/19 15:51 - Physical Exam Constitutional: ill appearing HEENT: moist MMs, sclera anicteric Respiratory: no wheezing, unlabored breathing Cardiovascular: RRR Gastrointestinal: soft Deviation from normal: abdominal wrap s/p peg Genitourinary: incontinent Musculoskeletal: pulses present, diffuse muscle atrophy Neurology: moves all 4 limbs Deviation from normal: r upper ext weaker Skin: cap refill <2 seconds Deviation from normal: Alert oriented to self - Assessment (1) Dysphagia Code(s): R13.10 - DYSPHAGIA, UNSPECIFIED Current Visit: Yes Status: Acute (2) Palliative care encounter Code(s): Z51.5 - ENCOUNTER FOR PALLIATIVE CARE Current Visit: Yes Status: Acute (3) Acute ischemic cerebrovascular accident (CVA) involving left middle cerebral artery territory Code(s): I63.512 - CEREB INFRC D/T UNSP OCCLS OR STENOS OF LEFT MID CEREB ART Current Visit: Yes Status: Acute (4) Cerebral hemorrhage Code(s): I61.9 - NONTRAUMATIC INTRACEREBRAL HEMORRHAGE, UNSPECIFIED Current Visit: Yes Status: Acute (5) HTN (hypertension) Code(s): I10 - ESSENTIAL (PRIMARY) HYPERTENSION Current Visit: Yes Status: Acute (6) Normocytic anemia Code(s): D64.9 - ANEMIA, UNSPECIFIED Current Visit: Yes Status: Acute - Plan Plan: Successful placement of PEG today. Son Errol to complete OOHDNAR with [facility]. Patient appears comfortable. Plan continues to be to transition home with hospice. Communicated with patient son. family understanding that they will receive teaching for PEG feedings and after home with hospice [facility] will reinforce. CM working with [facility] and hospice to ensure optimal transition to home setting. [25] minutes spent on this encounter with >50% of the time in counseling and coordination of care. - ROS Non Response: due to mental status
[2019-12-04] MEDS: Famotidine 40 MG/5 ML Oral Suspension PER TUBE SCH (16:16)
[2019-12-04] MEDS ORDERED: Ondansetron ODT 4 MG TAB PER TUBE PRN (16:30)
[2019-12-04] MEDS ORDERED: Amlodipine 5 MG TAB PER TUBE SCH (16:45)
[2019-12-04] MEDS ORDERED: Mirtazapine 30 MG TAB PER TUBE SCH (17:00)
[2019-12-04] MEDS ORDERED: Ziprasidone 60 MG CAP PO SCH (17:00)
[2019-12-04] MEDS ORDERED: Sterile Water 10 ML VIAL FS PRN (19:41)
[2019-12-04] MEDS ORDERED: Gabapentin 100 MG CAP PO SCH (21:00)
[2019-12-04] MEDS ORDERED: Pantoprazole 40 MG VIAL IVP SCH (21:00)
[2019-12-04] MEDS: Ziprasidone 20 MG VIAL IM SCH (23:30)
[2019-12-04] MEDS: Hydrochlorothiazide 25 MG TAB PER TUBE SCH (23:30)
[2019-12-04] MEDS: Famotidine 20 MG TAB PER TUBE SCH (23:30)
[2019-12-04] MEDS: Atorvastatin Calcium 40 MG TAB PER TUBE SCH (23:35)
[2019-12-05] MEDS: Dextrose 5%-Lactated Ringers 1,000 ML IV SCH ×3 (04:12→17:38)
--- NOTE | 2019-12-05 05:29 | PDOC.FM ---
- Subjective Subjective: Pt now has PEG tube in place. Awake and alert, making eye contact. - Objective Vital Signs & Weight: Vital Signs (12 hours) Temp Pulse Resp BP BP Pulse Ox 12/04/19 23:25 99.7 F H 74 16 102/88 95 12/04/19 17:44 77 162/102 H Weight Admit Weight 67.217 kg Weight 74.661 kg Most Recent Monitor Data Heart Rate from ECG 77 NIBP 154/87 NIBP BP-Mean 109 Respiration from ECG 21 SpO2 100 I&O: 12/03/19 12/04/19 12/05/19 06:59 06:59 06:59 Intake Total 2542.5 2996.75 474 Balance 2542.5 2996.75 474 Result Diagrams: 12/03/19 06:50 12/03/19 06:50 Phys Exam - Physical Examination Constitutional: NAD (ill appearing) HEENT: moist MMs, sclera anicteric Neck: supple Respiratory: no wheezing (unlabored breathing) Cardiovascular: RRR Gastrointestinal: soft (PEG in place) Musculoskeletal: no edema (r upper ext weak) Neurological: moves all 4 limbs Skin: cap refill <2 seconds Deviation from normal: oriented to self Dx/Plan - Plan Plan: ##Ischemic left sided CVA, S/P tPA at 1510 (11/23) -Extubated 11/30 -Monitor BP -PRN labetalol and hydralazine -Neurology and stroke team consulted -Pt developed an intraparencamal right basal ganglia bleed as well as a left temporal lobe bleed that has remained stable on repeat CT -Plan snf placement -Pt is NPO with plans for peg tube placement today ##Angioedema -S/P Benadryl, Pepcid, and solumedrol 125mg -Steroid taper, currently solumedrol 40mg IV q day, will switch to prednisone with PEG tube ##Normocytic anemia -Stable ##Hypokalemia, resolved ##Elevated troponin, likely 2/2 CVA -EKG shows no signs of ST elevation or depression ##Lung nodules seen on CT ##HTN -Pt is NPO, will start enalopril along with PRN medications Dispo: Plan is to transition patient home with hospice. will f/u with CM today. anticipating d/c home. Addendum - Attending - Attending Attestation Date/Time: 12/05/19 8466 I personally evaluated the patient and discussed the management with Dr. Munguia I agree with the History, Examination, Assessment and Plan documented above with any addition or exceptions noted below. Ischemic CVA with hemorrhagic conversion after tpa. s/p peg tub placement yesterday- tolerating peg tube feeds. Once at goal with bolus feeds will send home with hospice. OOHDNR signed
[2019-12-05] MEDS: Acetaminophen 325 MG TAB PER TUBE PRN (09:53)
[2019-12-05] MEDS: predniSONE 5 MG TAB PER TUBE SCH (09:54)
[2019-12-05] MEDS: Famotidine 20 MG TAB PER TUBE SCH ×2 (09:54→22:21)
[2019-12-05] MEDS: Mirtazapine 30 MG TAB PER TUBE SCH (09:54)
[2019-12-05] MEDS: Aspirin Chewable 81 MG TAB PER TUBE SCH (09:54)
[2019-12-05] MEDS: Amlodipine 5 MG TAB PER TUBE SCH (10:21)
[2019-12-05] MEDS: Hydrochlorothiazide 25 MG TAB PER TUBE SCH ×2 (10:22→22:21)
--- NOTE | 2019-12-05 12:00 | PRG ---
DATE OF SERVICE: 12/05/2019 SUBJECTIVE: This is a 79-year-old female with EGD and PEG tube yesterday. She is tolerating tube feeding well. The tube site appears healthy. The bumper was loosened up. OBJECTIVE: VITAL SIGNS: Her vital signs are stable, afebrile, pulse is 72, blood pressure is 143/86. ABDOMEN: Soft and nontender. LABORATORY DATA: The most recent lab data, blood sugar is 146. RECOMMENDATION: 1. Continue tube feeding. 2. Continue PPI. 3. We will sign off from today and if there are any issues, please call us back. Job ID: [id number]
--- NOTE | 2019-12-05 13:10 | PDOC.HOSPP ---
- Subjective Encounter Date: 12/05/19 Subjective: NEUROLOGY PROGRESS NOTE Patient is alert and was able to track - Objective Vital Signs & Weight: Vital Signs (12 hours) Temp Pulse Resp BP BP BP Pulse Ox 12/05/19 11:06 97.5 F L 72 16 143/85 H 96 12/05/19 09:50 95 12/05/19 09:10 111/78 12/05/19 07:27 99.0 F 73 18 120/76 95 12/05/19 04:00 99.3 F 75 18 94/68 95 Weight Admit Weight 148 lb 3 oz Weight 164 lb Most Recent Monitor Data Heart Rate from ECG 77 NIBP 154/87 NIBP BP-Mean 109 Respiration from ECG 21 SpO2 100 I&O: 12/04/19 12/05/19 12/06/19 06:59 06:59 06:59 Intake Total 2996.75 1894 Balance 2996.75 1894 Result Diagrams: 12/03/19 06:50 12/03/19 06:50 Additional Labs: Accuchecks 12/05/19 12/05/19 12/04/19 09:55 00:31 17:55 POC Glucose 146 H 98 116 H Radiology Reviewed by me: Yes EKG Reviewed by me: Yes Hospitalist ROS - Review of Systems ROS unobtainable: due to mental status (aphasia) - Medication Medications: Active Medications Generic Name Dose Route Start Last Admin Trade Name Freq PRN Reason Stop Dose Admin Acetaminophen 650 mg 12/04/19 16:30 12/05/19 09:53 Tylenol PER TUBE 650 mg Q4H PRN Administration Headache/Fever/Mild Pain (1-3) Amlodipine Besylate 5 mg 12/05/19 09:00 12/05/19 10:21 Norvasc PER TUBE Not Given DAILY COLEEN Aspirin 81 mg 12/05/19 09:00 12/05/19 09:54 Aspirin Chewable PER TUBE 81 mg DAILY COLEEN Administration Atorvastatin Calcium 80 mg 12/04/19 21:00 12/04/19 23:35 Lipitor PER TUBE 80 mg HS COLEEN Administration Famotidine 20 mg 12/04/19 21:00 12/05/19 09:54 Pepcid PER TUBE 20 mg BID COLEEN Administration Hydralazine HCl 10 mg 12/03/19 00:25 12/04/19 08:54 Apresoline SLOW IVP 10 mg Q4H PRN Administration SBP > 160 or DBP > 90 Hydrochlorothiazide 25 mg 12/04/19 21:00 12/05/19 10:22 Hydrochlorothiazide PER TUBE Not Given BID COLEEN Dextrose/Lactated Ringer's 1,000 mls @ 125 mls/hr 12/02/19 06:15 12/05/19 09: 52 D5 Lr IV 1,000 mls .Q8H COLEEN Administration Mirtazapine 30 mg 12/05/19 09:00 12/05/19 09:54 Remeron PER TUBE 30 mg DAILY COLEEN Administration Prednisone 10 mg 12/05/19 08:00 12/05/19 09:54 Prednisone PER TUBE 12/07/19 08:01 10 mg QAM-WM COLEEN Administration Sodium Chloride 10 ml 12/02/19 09:00 12/05/19 09:57 Flush - Normal Saline IVF Not Given Q12HR COLEEN Sodium Chloride 10 ml 12/02/19 06:20 12/03/19 12:18 Flush - Normal Saline IVF 10 ml PRN PRN Administration Saline Flush Sterile Water 1 ml 11/24/19 18:53 12/01/19 05:30 Bacteriostatic Water FS 1 ml PRN PRN Administration RECONSTITUTION Ziprasidone 20 mg 12/04/19 21:00 12/04/19 23:30 Geodon IM Not Given BID COLEEN - Exam General Appearance: awake alert Eye: PERRL ENT: normocephalic atraumatic Neck: supple Heart: RRR Respiratory: CTAB Gastrointestinal: soft Extremities: no cyanosis Skin: normal turgor Neurological: no new deficit Musculoskeletal: no muscle wasting Psychiatric: not oriented (aphasia) Hosp A/P (1) Cerebral hemorrhage Code(s): I61.9 - NONTRAUMATIC INTRACEREBRAL HEMORRHAGE, UNSPECIFIED Status: Acute (2) Acute ischemic cerebrovascular accident (CVA) involving left middle cerebral artery territory Code(s): I63.512 - CEREB INFRC D/T UNSP OCCLS OR STENOS OF LEFT MID CEREB ART Status: Acute (3) HTN (hypertension) Code(s): I10 - ESSENTIAL (PRIMARY) HYPERTENSION Status: Acute (4) Schizoaffective disorder Code(s): F25.9 - SCHIZOAFFECTIVE DISORDER, UNSPECIFIED Status: Acute - Plan PT/OT, speech therapy This is a 79 yo female who presented with an acute onset left sided weakness . She received tPA and developed an intracranial bleed which was stable on repeat HCT. MRI Brain showed bilateral middle cerebral artery and watershed infarcts. Clinically stable. Patient had PEG tube placed yesterday. Tolerated the procedure well. Speech on board.. Aspirin for secondary stroke prevention.. Strict control of BP Continue Telemetry EEG reviewed and was negative for seizure activity. Neurochecks every 2 hours. 2D Echo showed LVEF 50-55% and no thromus or PFO. Continue PT/OT CM on board with discharge planning DVT prophylaxis Continue medical management per primary team.
[2019-12-05] MEDS: Ziprasidone 20 MG VIAL IM SCH ×2 (15:24→22:22)
[2019-12-05] MEDS: Atorvastatin Calcium 40 MG TAB PER TUBE SCH (22:21)
--- NOTE | 2019-12-06 05:38 | PDOC.FM ---
- Subjective Subjective: pt resting in bed. awake. making eye contact. when asked about pain she points to her stomach. pt been tolerating bolus feeds with low residuals. temp was 100.0 this AM, recheck was 99.7. - Objective Vital Signs & Weight: Vital Signs (12 hours) Temp Pulse Resp BP Pulse Ox 12/06/19 04:08 100.0 F H 85 18 143/91 H 94 L 12/06/19 00:48 95 12/05/19 23:38 99.8 F H 105 H 22 H 137/91 H 95 12/05/19 22:05 95 12/05/19 20:01 98.2 F 72 24 H 163/102 H 95 Weight Admit Weight 67.217 kg Weight 74.389 kg Most Recent Monitor Data Heart Rate from ECG 77 NIBP 154/87 NIBP BP-Mean 109 Respiration from ECG 21 SpO2 100 I&O: 12/04/19 12/05/19 12/06/19 06:59 06:59 06:59 Intake Total 2996.75 1894 1709 Balance 2996.75 1894 1709 Result Diagrams: 12/03/19 06:50 12/03/19 06:50 Phys Exam - Physical Examination Constitutional: NAD HEENT: PERRLA Respiratory: no wheezing, no rales, no rhonchi Cardiovascular: RRR, no significant murmur Gastrointestinal: no distention (pt having tenderness near PEG tube insertion site.) Musculoskeletal: no edema Neurological: moves all 4 limbs Dx/Plan - Plan Plan: ##Ischemic left sided CVA, S/P tPA at 1510 (11/23) -Extubated 11/30 -Monitor BP -PRN labetalol and hydralazine -Neurology and stroke team consulted -Pt developed an intraparencamal right basal ganglia bleed as well as a left temporal lobe bleed that has remained stable on repeat CT -PEG tube placed 12/03 ##Angioedema -S/P Benadryl, Pepcid, and solumedrol 125mg -Steroid taper, currently solumedrol 40mg IV q day, will switch to prednisone with PEG tube ##Normocytic anemia -Stable ##Hypokalemia, resolved ##Elevated troponin, likely 2/2 CVA -EKG shows no signs of ST elevation or depression ##Lung nodules seen on CT ##HTN -Pt is NPO, will start enalopril along with PRN medications Dispo: pt started on bolus feeding yesterday. pt tolerating well. will transition home with hospice today once family is able to learn how to bolus feed patient. Addendum - Attending - Attending Attestation Date/Time: 12/06/19 3180 I personally evaluated the patient and discussed the management with Dr. Munguia. I agree with the History, Examination, Assessment and Plan documented above with any addition or exceptions noted below. Stable for d/c home on hospice with bolus feeding.
[2019-12-06] MEDS: Dextrose 5%-Lactated Ringers 1,000 ML IV SCH ×2 (06:22→17:05)
[2019-12-06] MEDS ORDERED: predniSONE 20 MG TAB PO SCH (08:00)
[2019-12-06] MEDS: predniSONE 5 MG TAB PER TUBE SCH (09:45)
[2019-12-06] MEDS: Ziprasidone 20 MG VIAL IM SCH ×2 (09:45→21:27)
[2019-12-06] MEDS: Mirtazapine 30 MG TAB PER TUBE SCH (09:45)
[2019-12-06] MEDS: Famotidine 20 MG TAB PER TUBE SCH ×2 (09:45→21:25)
[2019-12-06] MEDS: Hydrochlorothiazide 25 MG TAB PER TUBE SCH ×2 (09:45→21:25)
[2019-12-06] MEDS: Aspirin Chewable 81 MG TAB PER TUBE SCH (09:53)
[2019-12-06] MEDS: Amlodipine 5 MG TAB PER TUBE SCH (10:27)
[2019-12-06] MEDS: Atorvastatin Calcium 40 MG TAB PER TUBE SCH (21:25)
[2019-12-06] MEDS: Acetaminophen 325 MG TAB PER TUBE PRN (21:25)
--- NOTE | 2019-12-06 22:47 | PRG ---
DATE OF SERVICE: 12/04/2019 This is a transition of care progress report and it encounters the patient's care between date of 11/24/2019 to 12/04/2019. ADMITTING ATTENDING: Gilbert Ramirez MD RESIDENT: Edgar Gilmore DO CONSULTS: 1. Dr. Mclain, Neurosurgery. 2. Dr. Rashida Vora, Neurology. 3. Dr. Rob Cruz, Pulmonology. 4. Dr. Dennys Mckinley, Gastroenterology. PROCEDURES: 1. CTA head and neck shows no hemodynamically significant stenosis of the internal carotid arteries per NASCET criteria, dominant right vertebral artery with left vertebral artery terminated in the [employer] on normal variant. This was on 11/24/2019. Patent tan[place]ross of [place] without stenosis, thrombosis or aneurysm formation. 2. CT brain without contrast. No CT evidence of acute intracranial process, again, 11/23. 3. Chest x-ray on 11/23 shows no acute findings. Endotracheal tube in satisfactory position. 11/23, endotracheal intubation due to angioedema and need to secure airway. 4. CT brain without contrast on 11/24 shows new intraparenchymal hemorrhage in the right basal ganglia measuring up to 1 cm, in the left temporal lobe measuring up to 0.9 cm. 5. EEG showing intermittent irregular theta activity with superimposed beta on nonsustained posterior background rhythm. This was done on 11/24. 6. CT brain without contrast on 11/24 shows stable areas of parenchymal hemorrhage. 7. Chest x-ray on 11/25 shows no evidence of acute cardiopulmonary disease. 8. Chest x-ray on 11/27 shows no evidence of acute cardiopulmonary disease. 9. Chest x-ray on 11/26 shows no acute intrathoracic abnormalities or significant change. 10. Chest x-ray on 11/28 shows no evidence of acute cardiopulmonary disease. 11. Chest x-ray on 11/29, shows stable exam. 12. Brain MRI without contrast shows approximately 1 x 1 x 0.5 cm focal intra-axial lesion at anterior portion of right basal ganglia and anterior limb of right internal capsule with surrounding small patchy vasogenic edema consisting of intracellular hemoglobin. Approximately 1.2 x 0.9 x 0.8 cm lesion of the anterior left temporal lobe with similar signal characteristics cyst, surrounding small halo of vasogenic edema. 13. Diffuse severe confluent hyperintense signal on T2WI and FLAIR, encroaching on subcortical white matter throughout bilateral cerebral consistent with chronic ischemic white matter change due to small-vessel disease, large number of small to moderate size old infarcts throughout the bilateral cerebral hemispheres. Flow voids are grossly maintained of the major central arteries of the tan[place] of [place], severe chronic ischemic white matter change due to small-vessel disease. 14. Transthoracic echocardiogram shows ejection fraction at 55% to 60%, normal size left atrium, left ventricular size normal, moderate mitral regurgitation is present. 15. 12/03, placement of PEG tube at [place] pull technique. PRIMARY DIAGNOSES: Ischemic cerebrovascular accident with hemorrhagic conversion, angioedema secondary to tPA, hypertension, and hypokalemia. SECONDARY DIAGNOSES: Elevated troponin likely secondary to stroke, normocytic anemia, chronic, lung nodule, hypertension, schizoaffective disorder, overactive bladder. BRIEF HISTORY OF PRESENT ILLNESS/HOSPITAL COURSE: This is a 79-year-old female with past medical history as above, who presented to the ED from [facility] with a chief complaint of fall and speech difficulties. She was seen last normal at 1400 afternoon of admission to the ER at that time. She had a ground level fall with no head trauma, trouble talking, walking, and left-sided weakness. She was brought to the ER, was evaluated to have an NIH score of 13. Emergency consent was implied. She was given tPA at 1510. During our evaluation, the patient was found to have an enlarged tongue, which was deemed to be expanding and concerning for angioedema status post tPA. The patient was intubated due to this. The patient was admitted to the ICU due to intubation. However, followup CT showed intraparenchymal hemorrhage as noted above. Neurosurgery was consulted and the patient was deemed a nonsurgical candidate. Neurology was consulted as well as Pulmonology. The patient was slowly weaned off the vent and repeat CT showed stable hemorrhage. The patient's blood pressure was aggressively controlled within the window of tPA and continued to control with p.o. and IV medications. The patient was extubated on 11/29, was moved to the floor on 11/30 after she was deemed appropriate for leaving the ICU. Neurology continued to follow the patient and states that the progress that she has made is likely all that she will have made going forward. Speech Therapy was consulted and evaluated the patient and deemed her at aspiration risk and the patient was therefore kept n.p.o. During this time of n.p.o. status, we had difficulty controlling her blood pressure due to the lack of long-term p.o. medications. In addition, I discussed with Palliative Care the options of this patient. I discussed these options with the son. These options included patient remain n.p.o. on hospice and likely dying within the next 2 weeks, the patient allowed compassionate feeds with concern of aspiration and likely dying in the next few weeks or PEG tube placement, which is not a benign issue and contains aspiration risks of the procedure itself and reduces the ability for the patient to eat and taste. Then, the patient's family and patient decided they wanted a PEG tube for the patient and so the patient will be on hospice going forward. Palliative Team helped facilitate these discussions and set up hospice within the patient's home. On 12/03, Dr. Mckinley placed a PEG tube. The patient and the family were educated on PEG tube care as well as tube feeds. Please see the patient's discharge summary for any care provided after this time. Job ID: [id number]
[2019-12-07] MEDS ORDERED: Acetaminophen/Codeine 30-300mg Tablet PO PRN (00:24)
--- NOTE | 2019-12-07 00:28 | PDOC.BPN ---
- Brief Progress Note Call from nurse noting that patient has pain at the PEG tube site and has been getting prn Tylenol without much relief. Went to check on patient, patient is nonverbal but when asked about pain nods yes. When asked to point, points to peg tube. I examined the peg tube site, there is no erythema, no swelling or edema. Abdomen is nondistended, patient has guarding on the left side of the abdomen near peg tube site, no wincing or cries with palpation, bowel sounds present. Vitals were tachy in the 110s, RR 30, afebrile. Will give her home dose of Tylenol #3 for pain relief.
[2019-12-07] MEDS: Ziprasidone 20 MG VIAL IM SCH ×2 (03:05→09:47)
[2019-12-07 05:23] VITALS: BMI 26.1
--- NOTE | 2019-12-07 06:03 | PDOC.FM ---
- Subjective Subjective: Overnight, patient complained of pain at PEG tube site. No erythema or edema noted. She received home dose of Tylenol #3 for pain relief. She was sleeping but arousable this morning. - Objective MAR Reviewed: Yes Vital Signs & Weight: Vital Signs (12 hours) Temp Pulse Resp BP Pulse Ox 12/07/19 03:55 98 F 95 16 114/77 96 12/07/19 00:31 96 12/06/19 23:59 97.9 F 103 H 25 H 118/74 96 12/06/19 20:00 99.5 F 97 22 H 123/84 96 Weight Admit Weight 67.217 kg Weight 73.346 kg Most Recent Monitor Data Heart Rate from ECG 77 NIBP 154/87 NIBP BP-Mean 109 Respiration from ECG 21 SpO2 100 I&O: 12/05/19 12/06/19 12/07/19 06:59 06:59 06:59 Intake Total 1894 3964 2888 Output Total 1200 1000 Balance 1894 2764 1888 Result Diagrams: 12/03/19 06:50 12/03/19 06:50 Phys Exam - Physical Examination Constitutional: NAD Patient sleeping comfortably HEENT: moist MMs, sclera anicteric Neck: supple, full ROM Respiratory: no wheezing, clear to auscultation bilateral Cardiovascular: RRR, no significant murmur Gastrointestinal: soft, positive bowel sounds Musculoskeletal: no edema, pulses present Neurological: moves all 4 limbs Lymphatic: no nodes Deviation from normal: Patient communicates with nods. Skin: no rash, normal turgor Dx/Plan - Plan Plan: 1. Ischemic left sided CVA s/p tPA at 1510 on 11/23 Neurology and stroke team consulted. Pt developed an intraparencamal right basal ganglia bleed as well as a left temporal lobe bleed that has remained stable on repeat CT. Patient was extubated 11/30. PEG tube placed 12/03. -Monitor BP -PRN labetalol and hydralazine -Continue bolus feedings -Palliative consulted. Will discharge to hospice 2. Angioedema -S/P Benadryl, Pepcid, and solumedrol 125mg -Steroid taper - discontinued solumedrol 40mg IV q day on 12/05, started prednisone 10mg daily 3. Normocytic anemia -Stable 4. Elevated troponin, likely 2/2 CVA -EKG shows no signs of ST elevation or depression 5. Lung nodules seen on CT -Chronic 6. HTN Continue enalopril along with PRN medications Code: Full, will be DNR outpatient Dispo: Home on hospice
[2019-12-07] MEDS: Hydrochlorothiazide 25 MG TAB PER TUBE SCH (09:45)
[2019-12-07] MEDS: Mirtazapine 30 MG TAB PER TUBE SCH (09:46)
[2019-12-07] MEDS: predniSONE 5 MG TAB PER TUBE SCH (09:46)
[2019-12-07] MEDS: Famotidine 20 MG TAB PER TUBE SCH (09:46)
[2019-12-07] MEDS: Aspirin Chewable 81 MG TAB PER TUBE SCH (09:46)
[2019-12-07 11:33] VITALS: BP 139/80; TEMP 98.2
--- NOTE | 2019-12-07 12:07 | PDOC.HOSPP ---
- Subjective Encounter Date: 12/07/19 Subjective: NEUROLOGY PROGRESS NOTE Patient is alert and was able to track but does not follow commands. - Objective Vital Signs & Weight: Vital Signs (12 hours) Temp Pulse Resp BP Pulse Ox 12/07/19 11:22 98.2 F 66 16 139/80 96 12/07/19 07:59 98.3 F 77 18 124/78 96 12/07/19 03:55 98 F 95 16 114/77 96 12/07/19 00:31 96 Weight Admit Weight 148 lb 3 oz Weight 161 lb 11.2 oz Most Recent Monitor Data Heart Rate from ECG 77 NIBP 154/87 NIBP BP-Mean 109 Respiration from ECG 21 SpO2 100 I&O: 12/06/19 12/07/19 12/08/19 06:59 06:59 06:59 Intake Total 3964 2888 455 Output Total 1200 2350 Balance 2764 538 455 Result Diagrams: 12/03/19 06:50 12/03/19 06:50 Additional Labs: Accuchecks 12/07/19 12/06/19 09:55 21:27 POC Glucose 126 H 98 Radiology Reviewed by me: Yes EKG Reviewed by me: Yes Hospitalist ROS - Review of Systems ROS unobtainable: due to mental status (aphasia) - Medication Medications: Active Medications Generic Name Dose Route Start Last Admin Trade Name Freq PRN Reason Stop Dose Admin Acetaminophen 650 mg 12/04/19 16:30 12/06/19 21:25 Tylenol PER TUBE 650 mg Q4H PRN Administration Headache/Fever/Mild Pain (1-3) Acetaminophen/Codeine Phosphate 1 tab 12/07/19 00:24 12/07/19 01:37 Tylenol #3 PO 1 tab Q6H PRN Administration Severe Pain (7-10) Amlodipine Besylate 5 mg 12/05/19 09:00 12/06/19 10:27 Norvasc PER TUBE Not Given DAILY COLEEN Aspirin 81 mg 12/05/19 09:00 12/07/19 09:46 Aspirin Chewable PER TUBE 81 mg DAILY COLEEN Administration Atorvastatin Calcium 80 mg 12/04/19 21:00 12/06/19 21:25 Lipitor PER TUBE 80 mg HS COLEEN Administration Famotidine 20 mg 12/04/19 21:00 12/07/19 09:46 Pepcid PER TUBE 20 mg BID COLEEN Administration Hydralazine HCl 10 mg 12/03/19 00:25 12/04/19 08:54 Apresoline SLOW IVP 10 mg Q4H PRN Administration SBP > 160 or DBP > 90 Hydrochlorothiazide 25 mg 12/04/19 21:00 12/07/19 09:45 Hydrochlorothiazide PER TUBE 25 mg BID COLEEN Administration Mirtazapine 30 mg 12/05/19 09:00 12/07/19 09:46 Remeron PER TUBE 30 mg DAILY COLEEN Administration Sodium Chloride 10 ml 12/02/19 09:00 12/07/19 09:47 Flush - Normal Saline IVF Not Given Q12HR COLEEN Sodium Chloride 10 ml 12/02/19 06:20 12/03/19 12:18 Flush - Normal Saline IVF 10 ml PRN PRN Administration Saline Flush Sterile Water 1 ml 11/24/19 18:53 12/01/19 05:30 Bacteriostatic Water FS 1 ml PRN PRN Administration RECONSTITUTION Ziprasidone 20 mg 12/04/19 21:00 12/07/19 09:47 Geodon IM Not Given BID COLEEN - Exam General Appearance: awake alert Eye: PERRL ENT: normocephalic atraumatic Neck: supple Heart: RRR Respiratory: CTAB Gastrointestinal: soft Extremities: no cyanosis Skin: normal turgor Neurological: facial droop, hemiplegia, speech deficit Musculoskeletal: no muscle wasting Psychiatric: not oriented (aphasic) Hosp A/P (1) Cerebral hemorrhage Code(s): I61.9 - NONTRAUMATIC INTRACEREBRAL HEMORRHAGE, UNSPECIFIED Status: Acute (2) Acute ischemic cerebrovascular accident (CVA) involving left middle cerebral artery territory Code(s): I63.512 - CEREB INFRC D/T UNSP OCCLS OR STENOS OF LEFT MID CEREB ART Status: Acute (3) HTN (hypertension) Code(s): I10 - ESSENTIAL (PRIMARY) HYPERTENSION Status: Acute (4) Schizoaffective disorder Code(s): F25.9 - SCHIZOAFFECTIVE DISORDER, UNSPECIFIED Status: Acute - Plan PT/OT, speech therapy, DVT proph w/SCDs This is a 79 yo female who presented with an acute onset left sided weakness . She received tPA and developed an intracranial bleed which was stable on repeat HCT. MRI Brain showed bilateral middle cerebral artery and watershed infarcts. Clinically stable. Patient had PEG tube placed and she tolerated the procedure well. She complained of pain at the peg site. Speech on board.. Continue Aspirin for secondary stroke prevention.. Strict control of BP and BG. Continue Telemetry EEG reviewed and was negative for seizure activity. Neurochecks every 2 hours. 2D Echo showed LVEF 50-55% and no thromus or PFO. Continue PT/OT CM on board with discharge planning Possible discharge soon -- home with hospice DVT prophylaxis Continue medical management per primary team. Plan discussed with the floor team during MDR rounds.
--- NOTE | 2019-12-07 12:58 | PRG ---
DATE OF SERVICE: 12/07/2019 ADDENDUM: This is an addendum to the note of Dr. Laurie Corona. Ms. Calix is an unfortunate 79-year-old black female patient, who was admitted with a stroke. She was appropriately given tPA, but subsequently developed intracranial bleeds. She has been seen in consultation by OT/PT, and swallow study was performed, which she failed. The family elected for the patient to have a PEG tube. She is now awaiting placement either at home where she lives with her son or a snf facility. Job ID: [id number]
--- NOTE | 2019-12-08 13:56 | DIS ---
DATE OF ADMISSION: 11/24/2019 DATE OF DISCHARGE: 12/07/2019 RESIDENT: Laurie Corona MD ADMITTING ATTENDING: Gilbert Ramirez MD DISCHARGE ATTENDING: Jourdan Bob MD CONSULTS: Dr. Rashida Vora, Neurology. Dr. Sabrina Mclain, Neurosurgery. Dr. Rob Cruz, Pulmonology. Dr. Dennys Mckinley, Gastroenterology. Palliative team. PROCEDURES: ET tube placed on 11/23. ET tube extubated on 11/29. PEG tube placed on 11/29. PRIMARY DIAGNOSES: Ischemic cerebrovascular accident with hemorrhagic conversion, angioedema secondary to tPA, hypertension, and hypokalemia. SECONDARY DIAGNOSES: 1. Elevated troponin, likely secondary to stroke. 2. Normocytic anemia, chronic. 3. Lung nodule. 4. Hypertension. 5. Schizoaffective disorder. 6. Overreactive bladder. DISCHARGE MEDICATIONS: 1. Tylenol with Codeine 1 tablet p.o. q.6h p.r.n. 2. Gabapentin 100 mg p.o. t.i.d. 3. Iron 65 mg p.o. daily. 4. Oxybutynin chloride ER 15 mg p.o. daily. 5. Spiriva 18 mcg inhalation daily. 6. Geodon 60 mg p.o. b.i.d. 7. Zofran 4 mg per tube q.4 hour p.r.n. 8. Norvasc 5 mg per tube daily. 9. Aspirin chewable 81 mg per tube daily. 10. Pepcid 20 mg per tube b.i.d. 11. Hydrochlorothiazide 25 mg per tube b.i.d. 12. Mirtazapine 30 mg per tube daily. 13. Sterile water 1.2 mL FS p.r.n. 14. Water for injection 1 mL FS p.r.n. DISCONTINUED MEDICATIONS: None. HISTORY OF PRESENT ILLNESS: See transition of care note by Dr. Edgar Gilmore written on 12/06/19 for initial presentation and management. Solu-Medrol 40 mg IV daily was discontinued on 12/05. The patient was started on prednisone 10 mg daily as a steroid taper due to angioedema. The patient's code status was from changed from full code to DNR in the out of hospital setting. The patient's son stated that he was prepared to accept the patient home and had been prepped on how to complete tube feedings. The patient was discharged home on hospice and will follow up with their service. DISPOSITION: Stable on hospice. DISCHARGE INSTRUCTIONS: Location: Home. Diet: NPO due to aspiration risk. Activity: As tolerated. Followup: Per hospice. Job ID: [id number] MTDD
[2019-12-09] MEDS ORDERED: predniSONE 20 MG TAB PO SCH (08:00)
== END 2019-12-07 14:15 | disposition hospice, home (50) | DRG 61 ==
LOC: ERS 14:38 → CCU 15:48 → 2SE 12-01 09:55
PROVIDERS: ADMIT Family Medicine; ATTEND Family Medicine
PROC: 3E03317 Introduction of Other Thrombolytic into Peripheral Vein, Percutaneous Approach (ICD-10-PCS; principal; 2019-11-24)
PROC: 0BH17EZ Insertion of Endotracheal Airway into Trachea, Via Natural or Artificial Opening (ICD-10-PCS; 2019-11-24)
PROC: 5A1955Z Respiratory Ventilation, Greater than 96 Consecutive Hours (ICD-10-PCS; 2019-11-24)
PROC: 0T9B70Z Drainage of Bladder with Drainage Device, Via Natural or Artificial Opening (ICD-10-PCS; 2019-11-24)
PROC: 0DH63UZ Insertion of Feeding Device into Stomach, Percutaneous Approach (ICD-10-PCS; 2019-12-04)
DX: I63.512 Cerebral infarction due to unspecified occlusion or stenosis of left middle cerebral artery (principal); I61.1 Nontraumatic intracerebral hemorrhage in hemisphere, cortical; I61.0 Nontraumatic intracerebral hemorrhage in hemisphere, subcortical; J96.00 Acute respiratory failure, unspecified whether with hypoxia or hypercapnia; G93.40 Encephalopathy, unspecified; G81.91 Hemiplegia, unspecified affecting right dominant side; Z66 Do not resuscitate; Z51.5 Encounter for palliative care; Z20.828 Contact with and (suspected) exposure to other viral communicable diseases; Z96.642 Presence of left artificial hip joint; R29.713 NIHSS score 13; R40.2362 Coma scale, best motor response, obeys commands, at arrival to emergency department; R40.2142 Coma scale, eyes open, spontaneous, at arrival to emergency department; R40.2252 Coma scale, best verbal response, oriented, at arrival to emergency department; G47.33 Obstructive sleep apnea (adult) (pediatric); I10 Essential (primary) hypertension; R29.810 Facial weakness; N32.81 Overactive bladder; N39.46 Mixed incontinence; F25.9 Schizoaffective disorder, unspecified; T45.615A Adverse effect of thrombolytic drugs, initial encounter; E87.6 Hypokalemia; R91.8 Other nonspecific abnormal finding of lung field; F41.1 Generalized anxiety disorder; R47.1 Dysarthria and anarthria; R47.01 Aphasia; G62.9 Polyneuropathy, unspecified; D64.9 Anemia, unspecified; T78.3XXA Angioneurotic edema, initial encounter; F03.90 Unspecified dementia, unspecified severity, without behavioral disturbance, psychotic disturbance, mood disturbance, and anxiety; R13.12 Dysphagia, oropharyngeal phase; Z79.899 Other long term (current) drug therapy; Z98.49 Cataract extraction status, unspecified eye; Z90.49 Acquired absence of other specified parts of digestive tract; Z78.1 Physical restraint status; Z87.891 Personal history of nicotine dependence
CPT/HCPCS: 31500; 36415; 36416; 70450; 70496; 70498; 70551; 71045; 80048; 80053; 80061; 82550; 82553; 82805; 84484; 85007; 85025; 85027; 85610; 85730; 93005; 93306; 94002; 94003; 95712; 95816; 95819; 95957; 96361; 96365; 96367; 96375; 99292; J0360; J0690; J1200; J2060; J2250; J2704; J2920; J2930; J2997; J3486; J7050; J7512; Q9967; S0028; U0002

== ENCOUNTER 2020-10-06 22:34 | Inpatient (IN) | payer MEDICARE, OTHER ==
[2020-10-07 00:18] LABS: #Basophils 0.1 thou/uL (0.0-0.2); #Lymphocytes 1.2 thou/uL (1.20-3.40); #Monocytes 0.5 thou/uL (0.11-0.59); #Neutrophils 5.2 thou/uL (1.40-6.50); %Basophils 0.8 % (0.0-1.0); %Eosinophils 0.2 % (0.0-10.0); %Lymphocytes 17.9 % (21.0-51.0); %Monocytes 6.6 % (0.0-10.0); %Neutrophils 74.5 % (42.0-75.0); Hemoglobin 12.1 g/dL (12.0-16.0); Mean Corpuscular Hemoglobin 32.8 pg (27.0-31.0); Mean Corpuscular Volume 96.4 fL (78.0-98.0); Mean Platelet Volume 8.2 fL (7.4-10.4); Platelet Count 257 thou/uL (130-400); RBC Distribution Width 11.4 % (11.5-14.5); Red Blood Cell (RBC) Count 3.69 mill/uL (4.20-5.40)
[2020-10-07 00:23] LABS: Bilirubin Negative (Negative); Blood, Urine Negative (Negative); Clarity Clear (Clear); Glucose, Urine (Dipstick) Normal (Negative); Ketone, Urine Negative (Negative); Leukocyte Negative Leu/uL (Negative); Nitrite Negative (Negative); Protein, Urine (Dipstick) Negative (Neg-Trace); Specific Gravity, Urine 1.007 (1.002-1.036); Urobilinogen Normal mg/dL (Less than 2); pH, Urine 7.5 (5.0-9.0)
[2020-10-07 00:42] LABS: ALT (SGPT) 17 U/L (8-55); AST (SGOT) 16 U/L (5-34); Albumin 3.9 g/dL (3.4-4.8); Alkaline Phosphatase 129 U/L (40-110); Anion Gap 13 mmol/L (10-20); BUN (Urea Nitrogen) 10 mg/dL (9.8-20.1); Bilirubin, Total 0.6 mg/dL (0.2-1.2); CK (CPK) 106 U/L (29-168); Calc. Creatinine Clearance 0 mL/min (70-130); Calcium 10.1 mg/dL (7.8-10.44); Carbon Dioxide 27 mmol/L (23-31); Chloride 105 mmol/L (98-107); Globulin 3.2 g/dL (2.4-3.5); Glucose 98 mg/dL (83-110); Potassium 3.8 mmol/L (3.5-5.1); Protein, Total 7.1 g/dL (5.8-8.1); Sodium 141 mmol/L (136-145)
[2020-10-07] MEDS ORDERED: hydrALAZINE 20 MG/ML VIAL ONE (02:07)
[2020-10-07] MEDS ORDERED: Sodium Chloride 0.9% 1,000 ML IV SCH (02:45)
[2020-10-07] MEDS ORDERED: Acetaminophen 325 MG TAB PO PRN (02:45)
[2020-10-07] MEDS ORDERED: Ondansetron ODT 4 MG TAB SL PRN (02:45)
[2020-10-07] MEDS ORDERED: Ondansetron PF 4 MG/2 ML Vial IVP PRN (02:45)
[2020-10-07 03:49] VITALS: BMI 19.0
[2020-10-07] MEDS: Enoxaparin Sodium 40 MG/0.4 ML SYRINGE SC SCH (09:25)
[2020-10-07] MEDS: hydrALAZINE 20 MG/ML VIAL SLOW IVP PRN ×3 (09:25→22:38)
[2020-10-07] MEDS: Aspirin 325 mg Enteric Coated Tablet PO SCH (10:27)
[2020-10-07] MEDS ORDERED: Lorazepam 2 MG/ML VIAL SLOW IVP SCH (11:45)
[2020-10-08] MEDS: hydrALAZINE 20 MG/ML VIAL SLOW IVP PRN (04:26)
[2020-10-08 05:46] LABS: Cardiac Risk 2.5 (Less than 4.5)
[2020-10-08] MEDS: Aspirin 325 mg Enteric Coated Tablet PO SCH (09:54)
[2020-10-08] MEDS: Enoxaparin Sodium 40 MG/0.4 ML SYRINGE SC SCH (09:58)
[2020-10-08] MEDS ORDERED: Acetaminophen/Codeine 30-300mg Tablet PO PRN (11:15)
[2020-10-08] MEDS ORDERED: Ondansetron ODT 4 MG TAB PER TUBE PRN (11:15)
[2020-10-08] MEDS ORDERED: Lorazepam 2 MG/ML VIAL SLOW IVP PRN (11:17)
[2020-10-08] MEDS: Ipratropium Bromide 2.5 ml Neb NEB SCH ×2 (14:49→19:37)
[2020-10-08] MEDS: Gabapentin 100 MG CAP PO SCH ×2 (16:47→21:35)
[2020-10-08] MEDS: Ziprasidone 60 MG CAP PO SCH (16:47)
[2020-10-08] MEDS ORDERED: Ziprasidone 60 MG CAP PO SCH (17:00)
[2020-10-08] MEDS: Amlodipine 10 MG TAB PER TUBE SCH (21:35)
[2020-10-08] MEDS: Famotidine 20 MG TAB PER TUBE SCH (21:35)
[2020-10-09] MEDS: Ipratropium Bromide 2.5 ml Neb NEB SCH ×3 (01:47→13:31)
[2020-10-09] MEDS ORDERED: Acetaminophen 325 MG TAB PO PRN (03:23)
[2020-10-09] MEDS ORDERED: Oxybutynin ER 5 MG TAB PO SCH ×2 (09:00)
[2020-10-09] MEDS ORDERED: Amlodipine 10 MG TAB PER TUBE SCH (09:00)
[2020-10-09] MEDS ORDERED: Aspirin Chewable 81 MG TAB PER TUBE SCH (09:00)
[2020-10-09] MEDS: Enoxaparin Sodium 40 MG/0.4 ML SYRINGE SC SCH (09:18)
[2020-10-09] MEDS: Gabapentin 100 MG CAP PO SCH ×2 (09:18→16:04)
[2020-10-09] MEDS: Amlodipine 10 MG TAB PER TUBE SCH (09:20)
[2020-10-09] MEDS: Famotidine 20 MG TAB PER TUBE SCH (09:20)
[2020-10-09] MEDS: Ziprasidone 60 MG CAP PO SCH ×2 (09:40→16:05)
[2020-10-09] MEDS ORDERED: Ipratropium Oral Inhaler INH PRN (14:18)
[2020-10-09 15:42] VITALS: BP 102/71; TEMP 97.9
== END 2020-10-09 18:36 | disposition home health service (06) | DRG 66 ==
LOC: ERS 22:34 → 2SE 10-07 01:34 → OBSVTOIN 10-08 14:34
PROVIDERS: ADMIT Internal Medicine; ATTEND Internal Medicine
DX: I63.81 Other cerebral infarction due to occlusion or stenosis of small artery (principal); I10 Essential (primary) hypertension; G47.33 Obstructive sleep apnea (adult) (pediatric); R91.1 Solitary pulmonary nodule; F25.9 Schizoaffective disorder, unspecified; N32.81 Overactive bladder; R45.1 Restlessness and agitation; L89.892 Pressure ulcer of other site, stage 2; F41.9 Anxiety disorder, unspecified; Z96.642 Presence of left artificial hip joint; Z79.899 Other long term (current) drug therapy; Z87.891 Personal history of nicotine dependence
CPT/HCPCS: 36415; 36416; 70450; 80053; 80061; 81003; 82550; 84484; 85025; 93005; 93306; 93880; 95712; 95819; 95957; 96372; 96374; 96375; 96376; G0378; J0360; J1650; J2060

== ENCOUNTER 2020-12-10 19:47 | Inpatient (IN) | payer MEDICARE, OTHER ==
[2020-12-10 20:04] LABS: #Eosinphils 0.1 thou/uL (0.0-0.7); #Lymphocytes 1.5 thou/uL (1.20-3.40); #Monocytes 0.4 thou/uL (0.11-0.59); #Neutrophils 2.7 thou/uL (1.40-6.50); %Basophils 0.8 % (0.0-1.0); %Eosinophils 1.3 % (0.0-10.0); %Lymphocytes 32.4 % (21.0-51.0); %Monocytes 9.1 % (0.0-10.0); %Neutrophils 56.4 % (42.0-75.0); Hemoglobin 12.3 g/dL (12.0-16.0); Mean Corpuscular HGB CONC 33.1 g/dL (32.0-36.0); Mean Corpuscular Hemoglobin 32.9 pg (27.0-31.0); Mean Corpuscular Volume 99.5 fL (78.0-98.0); Mean Platelet Volume 8.6 fL (7.4-10.4); Platelet Count 151 thou/uL (130-400); RBC Distribution Width 11.7 % (11.5-14.5); Red Blood Cell (RBC) Count 3.73 mill/uL (4.20-5.40); White Blood Cell (WBC) Count 4.8 thou/uL (4.8-10.8)
[2020-12-10 20:22] LABS: ALT (SGPT) 18 U/L (8-55); AST (SGOT) 15 U/L (5-34); Acetaminophen Less than 6.0 mcg/mL (10.0-30.0); Albumin 4.3 g/dL (3.4-4.8); Alcohol Less than 10 mg/dL (Less than 10); Alkaline Phosphatase 129 U/L (40-110); Anion Gap 15 mmol/L (10-20); BUN (Urea Nitrogen) 16 mg/dL (9.8-20.1); Bilirubin, Total 0.5 mg/dL (0.2-1.2); Calc. Creatinine Clearance 0 mL/min (70-130); Calcium 9.9 mg/dL (7.8-10.44); Carbon Dioxide 25 mmol/L (23-31); Chloride 102 mmol/L (98-107); Globulin 3.1 g/dL (2.4-3.5); Glucose 118 mg/dL (83-110); Magnesium 1.9 mg/dL (1.6-2.6); Potassium 4.3 mmol/L (3.5-5.1); Protein, Total 7.4 g/dL (5.8-8.1); Salicylate Less than 8.0 mg/dL (15.0-30.0); Sodium 138 mmol/L (136-145)
[2020-12-10 20:25] LABS: INR-International Normal Ratio 0.9; PTT 26.8 sec (22.9-36.1); Prothrombin Time 12.4 sec (12.0-14.7)
[2020-12-10] MEDS ORDERED: Midazolam HCl 2 mg/2 ml Vial ONE (21:03)
[2020-12-10] MEDS ORDERED: cefTRIAXone\\ROCEPHIN 1 GM VIAL ONE (22:17)
[2020-12-10 22:44] LABS: Bilirubin Negative (Negative); Blood, Urine Negative (Negative); Clarity Clear (Clear); Glucose, Urine (Dipstick) Normal (Negative); Ketone, Urine Negative (Negative); Leukocyte Negative Leu/uL (Negative); Nitrite Negative (Negative); Protein, Urine (Dipstick) Negative (Neg-Trace); Urobilinogen Normal mg/dL (Less than 2); pH, Urine 7.5 (5.0-9.0)
[2020-12-10 22:55] LABS: Amphetamine Not Detected (NotDetected); Barbiturates Screen Not Detected (NotDetected); Benzodiazepine Screen Not Detected (NotDetected); Cocaine Metabolite Screen Not Detected (NotDetected); Methadone Not Detected (NotDetected); Methamphetamine Not Detected (NotDetected); Opiate Screen Not Detected (NotDetected); Oxycodone Screen Not Detected (NotDetected); Phencyclidine (PCP) Not Detected (NotDetected); THC/Cannabinoid Screen Not Detected (NotDetected); Tricyclic Screen Not Detected (NotDetected)
[2020-12-10 23:34] LABS: Lactic Acid 2.2 mmol/L (0.5-2.2)
[2020-12-11] MEDS ORDERED: Lorazepam 2 MG/ML VIAL SLOW IVP PRN (00:28)
[2020-12-11] MEDS ORDERED: OLANZapine 10 MG VIAL IM SCH (00:30)
[2020-12-11] MEDS ORDERED: Sterile Water 10 ML VIAL FS SCH (00:30)
[2020-12-11] MEDS ORDERED: Ondansetron PF 4 MG/2 ML Vial IVP PRN (02:29)
[2020-12-11] MEDS ORDERED: Ondansetron ODT 4 MG TAB PO PRN (02:29)
[2020-12-11] MEDS ORDERED: Acetaminophen 325 MG TAB PO PRN (02:29)
[2020-12-11] MEDS ORDERED: Acetaminophen 650 MG Suppository PR PRN (02:29)
[2020-12-11] MEDS ORDERED: hydrALAZINE 20 MG/ML VIAL SLOW IVP PRN (02:32)
[2020-12-11] MEDS ORDERED: Aspirin Chewable 81 MG TAB PO SCH (02:45)
[2020-12-11] MEDS ORDERED: Aspirin 300 MG Suppository PR SCH (04:30)
[2020-12-11] MEDS ORDERED: Piperacillin/Tazobactam 3.375 GM in Sodium Chloride 0.9% 100 ML IVPB SCH (05:30)
[2020-12-11 05:36] LABS: #Eosinphils 0.1 thou/uL (0.0-0.7); #Lymphocytes 1.8 thou/uL (1.20-3.40); #Monocytes 0.8 thou/uL (0.11-0.59); #Neutrophils 4.9 thou/uL (1.40-6.50); %Basophils 0.6 % (0.0-1.0); %Lymphocytes 23.6 % (21.0-51.0); %Monocytes 10.8 % (0.0-10.0); Mean Corpuscular HGB CONC 32.9 g/dL (32.0-36.0); Mean Corpuscular Hemoglobin 32.7 pg (27.0-31.0); Mean Corpuscular Volume 99.4 fL (78.0-98.0); Mean Platelet Volume 8.7 fL (7.4-10.4); Platelet Count 147 thou/uL (130-400); RBC Distribution Width 11.5 % (11.5-14.5); Red Blood Cell (RBC) Count 3.67 mill/uL (4.20-5.40); White Blood Cell (WBC) Count 7.7 thou/uL (4.8-10.8)
[2020-12-11 05:55] LABS: Anion Gap 11 mmol/L (10-20); BUN (Urea Nitrogen) 11 mg/dL (9.8-20.1); Calc. Creatinine Clearance 55 mL/min (70-130); Calcium 9.8 mg/dL (7.8-10.44); Carbon Dioxide 29 mmol/L (23-31); Cardiac Risk 2.4 (Less than 4.5); Chloride 105 mmol/L (98-107); Cholesterol 167 mg/dl (< 200 Desired); Glucose 84 mg/dL (83-110); HDL Cholesterol 71 mg/dL (>60 Neg Risk); LDL Cholesterol, Calculated 77 mg/dL; Potassium 3.8 mmol/L (3.5-5.1); Sodium 141 mmol/L (136-145); Triglycerides 96 mg/dL (Less than 150)
[2020-12-11] MEDS ORDERED: Dextrose 50% Abboject 50 ML SYRINGE ONE (07:37)
[2020-12-11] MEDS: Dextrose 5 % And 0.9 % NaCl 1,000 ML IV SCH ×2 (07:56→21:45)
[2020-12-11 08:06] LABS: Actual Bicarbonate (HCO3a) 27.6 mEq/L (22-28); Base Excess (BEa) 2.5 mEq/L (-2.0 to +3.0); CO2 Tension 44.7 mmHg (35.0-45.0); Calcium, Ionized (arterial) 1.25 mmol/L (1.12-1.30); Carboxyhemoglobin (COHb) 0.9 gm% (0.0-3.0); Hemoglobin (Hb) 11.7 g/dL (12.0-16.0); O2 Tension (PaO2), arterial 66.2 mmHg (> 70.0); Potassium - ABG Lab 3.52 mmol/L (3.70-5.30); pH, Arterial 7.41 (7.35-7.45)
[2020-12-11 08:07] LABS: ALV-art Gradient 27.655 mmHg (0-20); Puncture Site LBA
[2020-12-11] MEDS: Enoxaparin Sodium 40 MG/0.4 ML SYRINGE SC SCH (08:35)
[2020-12-11] MEDS: Piperacillin/Tazobactam 3.375 GM in Sodium Chloride 0.9% 100 ML IVPB SCH ×2 (08:35→15:35)
[2020-12-11] MEDS: Aspirin 81 mg Enteric Coated Tablet PO SCH (10:13)
[2020-12-11 16:21] LABS: SARS-CoV-2 PCR by NAA Not Detected (NotDetected)
[2020-12-11] MEDS: Atorvastatin Calcium 40 MG TAB PO SCH (22:18)
[2020-12-12] MEDS: Piperacillin/Tazobactam 3.375 GM in Sodium Chloride 0.9% 100 ML IVPB SCH ×3 (01:53→16:24)
[2020-12-12] MEDS: Enoxaparin Sodium 40 MG/0.4 ML SYRINGE SC SCH (08:13)
[2020-12-12] MEDS: Dextrose 5 % And 0.9 % NaCl 1,000 ML IV SCH ×2 (10:28→22:48)
[2020-12-12] MEDS: Aspirin 81 mg Enteric Coated Tablet PO SCH (14:29)
[2020-12-12 14:54] VITALS: BMI 20.3
[2020-12-12] MEDS: Amlodipine 5 MG TAB PO SCH (22:47)
[2020-12-12] MEDS: Atorvastatin Calcium 40 MG TAB PO SCH (22:47)
[2020-12-13] MEDS: Piperacillin/Tazobactam 3.375 GM in Sodium Chloride 0.9% 100 ML IVPB SCH ×4 (00:09→23:53)
[2020-12-13] MEDS: Enoxaparin Sodium 40 MG/0.4 ML SYRINGE SC SCH (08:28)
[2020-12-13] MEDS: Amlodipine 5 MG TAB PO SCH ×2 (08:28→20:56)
[2020-12-13] MEDS: Aspirin 81 mg Enteric Coated Tablet PO SCH (08:29)
[2020-12-13] MEDS ORDERED: Lorazepam 2 MG/ML VIAL SLOW IVP PRN (10:08)
[2020-12-13] MEDS: Dextrose 5 % And 0.9 % NaCl 1,000 ML IV SCH ×2 (15:36→23:52)
[2020-12-13] MEDS: Atorvastatin Calcium 40 MG TAB PO SCH (20:57)
[2020-12-14 08:43] LABS: Anion Gap 10 mmol/L (10-20); BUN (Urea Nitrogen) 12 mg/dL (9.8-20.1); Calc. Creatinine Clearance 51 mL/min (70-130); Calcium 9.2 mg/dL (7.8-10.44); Carbon Dioxide 26 mmol/L (23-31); Chloride 109 mmol/L (98-107); Glucose 103 mg/dL (83-110); Magnesium 1.8 mg/dL (1.6-2.6); Potassium 3.3 mmol/L (3.5-5.1); Sodium 142 mmol/L (136-145)
[2020-12-14] MEDS: Piperacillin/Tazobactam 3.375 GM in Sodium Chloride 0.9% 100 ML IVPB SCH (08:44)
[2020-12-14] MEDS: Enoxaparin Sodium 40 MG/0.4 ML SYRINGE SC SCH (08:44)
[2020-12-14] MEDS: Amlodipine 5 MG TAB PO SCH ×2 (08:45→21:53)
[2020-12-14] MEDS: Aspirin 81 mg Enteric Coated Tablet PO SCH (08:46)
[2020-12-14 10:06] LABS: Band 2 % (5-11); Eosinophils 6 % (0-10); Hemoglobin 11.7 g/dL (12.0-16.0); Lymphocytes 39 % (21-51); MDiff Complete? YES; Mean Corpuscular HGB CONC 32.6 g/dL (32.0-36.0); Mean Corpuscular Hemoglobin 32.3 pg (27.0-31.0); Monocytes 14 % (0-10); Neutrophil 39 % (42-75); Nucleated RBC 1 % (0); Platelet Count 135 thou/uL (130-400); Platelet Morphology Comment Appears Adequate; Polychromasia SLIGHT = 2-3 cells (100X) (0-2/hpf); RBC Distribution Width 11.4 % (11.5-14.5); Red Blood Cell (RBC) Count 3.63 mill/uL (4.20-5.40); White Blood Cell (WBC) Count 5.2 thou/uL (4.8-10.8)
[2020-12-14] MEDS: Dextrose 5 % And 0.9 % NaCl 1,000 ML IV SCH (15:48)
[2020-12-14] MEDS ORDERED: Polyethylene Glycol 3350 17 GM Packet PO PRN (19:51)
[2020-12-14] MEDS: Senokot S 8.6-50 MG TAB PO SCH (21:56)
[2020-12-14] MEDS: Atorvastatin Calcium 40 MG TAB PO SCH (21:56)
[2020-12-15] MEDS: Dextrose 5 % And 0.9 % NaCl 1,000 ML IV SCH (05:00)
[2020-12-15] MEDS: Senokot S 8.6-50 MG TAB PO SCH ×2 (08:24→21:06)
[2020-12-15] MEDS: Amlodipine 5 MG TAB PO SCH ×2 (08:24→21:06)
[2020-12-15] MEDS: Enoxaparin Sodium 40 MG/0.4 ML SYRINGE SC SCH (08:25)
[2020-12-15] MEDS: Aspirin 81 mg Enteric Coated Tablet PO SCH (08:25)
[2020-12-15] MEDS ORDERED: Bisacodyl 10 MG SUPP PR PRN (08:46)
[2020-12-15] MEDS: Potassium Chloride 20 MEQ in Premix Bag 1 BAG IVPB SCH ×2 (10:51→13:09)
[2020-12-15] MEDS: Atorvastatin Calcium 40 MG TAB PO SCH (21:07)
[2020-12-16 05:54] LABS: Anion Gap 8 mmol/L (10-20); BUN (Urea Nitrogen) 10 mg/dL (9.8-20.1); Calc. Creatinine Clearance 58 mL/min (70-130); Calcium 9.2 mg/dL (7.8-10.44); Carbon Dioxide 28 mmol/L (23-31); Chloride 111 mmol/L (98-107); Glucose 100 mg/dL (83-110); Potassium 3.7 mmol/L (3.5-5.1); Sodium 143 mmol/L (136-145)
[2020-12-16] MEDS: Amlodipine 5 MG TAB PO SCH (09:34)
[2020-12-16] MEDS: Aspirin 81 mg Enteric Coated Tablet PO SCH (09:34)
[2020-12-16] MEDS: Enoxaparin Sodium 40 MG/0.4 ML SYRINGE SC SCH (09:35)
[2020-12-16] MEDS: Senokot S 8.6-50 MG TAB PO SCH (09:35)
[2020-12-16 20:44] VITALS: BP 140/87; TEMP 98.1
== END 2020-12-16 20:30 | disposition home health service (06) | DRG 884 ==
LOC: ERS 19:47 → 2NO 12-11 00:45 → SURG A 12-14 15:10
PROVIDERS: ADMIT Student in an Organized Health Care Education/Training Program; ATTEND Family Medicine
DX: F03.91 Unspecified dementia, unspecified severity, with behavioral disturbance (principal); G93.41 Metabolic encephalopathy; E87.2 Acidosis; E44.0 Moderate protein-calorie malnutrition; R64 Cachexia; I10 Essential (primary) hypertension; E86.0 Dehydration; G47.30 Sleep apnea, unspecified; Z96.642 Presence of left artificial hip joint; Z20.822 Contact with and (suspected) exposure to COVID-19; Z86.73 Personal history of transient ischemic attack (TIA), and cerebral infarction without residual deficits; Z87.891 Personal history of nicotine dependence; Z78.1 Physical restraint status; Z68.20 Body mass index [BMI] 20.0-20.9, adult
CPT/HCPCS: 36415; 36416; 36600; 70450; 71045; 80048; 80053; 80061; 80306; 80307; 81003; 82140; 82805; 83605; 83735; 83880; 84443; 84484; 85025; 85610; 85730; 87040; 93005; 93010; 95816; 95819; 96365; 96372; 96375; J0696; J1650; J2250; J2358; J2543; J3480; J3490; U0003; U0005